=== PATIENT | female | born 1940 | race Caucasian/White ===

== ENCOUNTER 2017-07-07 10:39 | Inpatient (IN) | payer MEDICARE ==
--- NOTE | 2017-06-21 03:40 | HP ---
HISTORY AND PHYSICAL: DATE OF ADMISSION/SURGERY: 07/07/17 DATE OF OFFICE VISIT: 06/16/17 SURGEON: Jes Lees MD * (DICTATED BY RAMYA MAR) PROCEDURE: Revision of the left total knee arthroscopy. CHIEF COMPLAINT: Left knee pain. HISTORY OF PRESENT ILLNESS: Ms. Terry is a 77-year-old female, who had a left total knee replacement on 08/27/09. She did extremely well after the surgery up until approximately 6 weeks ago when she started having increased pain with walking and weightbearing. X-rays showed the tibial component is loose and has changed position. She has elected to proceed with surgery to correct this. She is scheduled for a left total knee revision with Dr. Lees on 07/07/17. PAST MEDICAL HISTORY: Hypertension, ischemic stroke, pulmonary embolism, heart murmur. PAST SURGICAL HISTORY: Tonsillectomy; appendectomy; bilateral carpal tunnel release; ganglion cyst excision; x2; breast biopsy; hysterectomy; left heel spur removal; ORIF, right lower extremity; left total knee arthroplasty. CURRENT MEDICATIONS: 1. Enalapril. 2. Magnesium. 3. Ibuprofen. ALLERGIES: To ADHESIVE TAPE and SCALLOP. FAMILY HISTORY: Stroke and stomach cancer. SOCIAL HISTORY: A 77-year-old female, who lives with her . She does not smoke or use drugs or alcohol. REVIEW OF SYSTEMS: A complete 14-point review of systems was reviewed with the patient, and it was positive for history of stroke, pulmonary embolus and MRSA infection following the ORIF of the right lower extremity. PHYSICAL EXAMINATION GENERAL: She is a well developed, well nourished, in no acute distress. VITAL SIGNS: She stands 5 feet 2 inches tall, weighs 188 pounds. Her blood pressure is 136/84, her heart rate is 72. HEENT: Normocephalic, atraumatic. NECK: Supple. PULMONARY: The lungs are clear to auscultation bilaterally. CARDIO: Regular rate and rhythm. Strong S1 and S2. ABDOMEN: Soft, nontender, and nondistended. MUSCULOSKELETAL: Left lower extremity, the skin is intact. There are no open wounds or abrasions. She can flex to 90 degrees. She is able to do a straight leg raise and has full extension. She has some tenderness to palpation over the proximal tibia. 2+ dorsalis pedis pulses. Intact sensation. Her lower extremity muscle group strengths are intact at 5/5. NEUROLOGIC: She is alert and oriented x3. Cranial nerves II through XII are intact. ASSESSMENT AND PLAN: Ms. Terry is a 77-year-old female, status post left total knee replacement, who had increasing left knee pain approximately 6 weeks ago and x- rays show change in the position of the tibial component with loosening. She would like to proceed with surgery. She is scheduled for a revision of the left total knee on 07/07/[address] Lees discussed the risks and benefits of the surgery at today's visit and all of her questions were answered. Coumadin, Colace, and Percocet were sent to her pharmacy for postoperative pain control and DVT prophylaxis. She will see Dr. Lees back 2 weeks after the surgery. RAMYA MAR [id number]/[facility] #: [id number] [facility], [place]Michel[place]
[~2017-07-07 10:39] MED LIST: Buffered Lidocaine 0.9% SYRIN* 5 ML/SYR SYRINGE INTRADERM ONE; ceFAZolin 2 GM PREMIX (*) 50 ML IVPB ONE
[2017-07-07] MEDS ORDERED: Bupivacaine 0.25% SDV* 30 ML ONE ×2 (11:40→14:36)
[2017-07-07] MEDS ORDERED: Bupivacaine 0.5% SDV PF* 30 ML VIAL ONE ×2 (11:40→14:36)
[2017-07-07] MEDS ORDERED: Rocuronium* 10 MG/ML VIAL ONE (11:57)
[2017-07-07] MEDS ORDERED: fentaNYL* 50 MCG/ML 2 ML VIAL (100 MCG VIAL) ONE ×4 (12:21→18:15)
[2017-07-07] MEDS ORDERED: Lidocaine 2% PF * 5 ML VIAL ONE (13:07)
[2017-07-07] MEDS ORDERED: Propofol* 10 MG/ML 20 ML BTL IV PUSH ONE ×2 (13:07→14:35)
[2017-07-07] MEDS ORDERED: ceFAZolin 2 GM PREMIX (*) 50 ML IVPB ONE (15:36)
[2017-07-07 15:41] LABS: Hematocrit 33 % (35-47); Hemoglobin 11.2 g/dl (12.0-16.0)
[2017-07-07 16:35] LABS: Hematocrit 31 % (35-47); Hemoglobin 10.4 g/dl (12.0-16.0)
[2017-07-07] MEDS ORDERED: diPHENhydraMINE IV* 50 MG/ML 1 ml VIAL (BENADRYL) IV PRN (18:09)
--- NOTE | 2017-07-07 18:13 | RAD ---
INDICATION: Left knee revision COMPARISONS: June 16, 2017 TECHNIQUE: Fluoroscopy was provided for a surgical procedure. Total fluoroscopy time is: 26.8 seconds FINDINGS: Spot images demonstrate a left knee arthroplasty. IMPRESSION: FLUOROSCOPY WAS PROVIDED FOR A SURGICAL PROCEDURE CPT II Codes: 6045F
[2017-07-07] MEDS ORDERED: Ondansetron INJ* 2 MG/ML VIAL ONE (18:15)
[2017-07-07] MEDS ORDERED: Ondansetron INJ* 2 MG/ML VIAL IV PRN (18:32)
[2017-07-07 18:39] LABS: Hematocrit 27 % (35-47); Hemoglobin 8.7 g/dl (12.0-16.0)
[2017-07-07] MEDS: fentaNYL* 50 MCG/ML 2 ML VIAL (100 MCG VIAL) IV PRN ×2 (18:43→20:44)
[2017-07-07] MEDS ORDERED: DiMENhydriNATE IV* 50 MG/ML VIAL ONE (19:30)
--- NOTE | 2017-07-07 19:48 | RAD ---
HISTORY: Status post left knee arthroplasty COMPARISONS: June 16, 2017 VIEWS: 2, frontal and crosstable lateral views of the left knee FINDINGS: BONE DENSITY: There is diffuse osteopenia. BONES: The patient is status post left knee arthroplasty. There is no hardware failure or osteolysis. JOINTS: The patient is status post left knee arthroplasty ALIGNMENT: There is no dislocation. SOFT TISSUES: Unremarkable. OTHER FINDINGS: None. IMPRESSION: STATUS POST LEFT KNEE ARTHROPLASTY
--- NOTE | 2017-07-07 19:49 | RAD ---
HISTORY: Status post left knee arthroplasty COMPARISONS: None relevant VIEWS: 2, frontal and crosstable lateral views of the proximal left femur. FINDINGS: BONE DENSITY: There is diffuse osteopenia. BONES: There is no displaced fracture. JOINTS: There is moderate osteoarthritis of the hip. ALIGNMENT: There is no dislocation. SOFT TISSUES: Unremarkable. OTHER FINDINGS: None. IMPRESSION: OSTEOARTHRITIS. NO ACUTE OSSEOUS INJURY. IF SYMPTOMS PERSIST, RECOMMEND REPEAT IMAGING.
--- NOTE | 2017-07-07 19:50 | RAD ---
HISTORY: Status post left knee arthroplasty COMPARISONS: Left knee dated July 07, 2017 VIEWS: 2, frontal view of the left foreleg with lateral views of the distal left foreleg FINDINGS: BONE DENSITY: There is diffuse osteopenia. BONES: The patient is status post left knee arthroplasty. There is no hardware failure or osteolysis. JOINTS: The patient is status post left knee arthroplasty. There is osteoarthritis of the ankle. ALIGNMENT: There is no dislocation. SOFT TISSUES: Unremarkable. OTHER FINDINGS: None. IMPRESSION: STATUS POST LEFT KNEE ARTHROPLASTY
[2017-07-07] MEDS ORDERED: Enalapril TAB* 5 MG PO SCH (21:00)
[2017-07-07] MEDS: Docusate CAP* 100 MG PO SCH (22:37)
[2017-07-07] MEDS: Morphine INJ* 2 MG/ML 1 ML SYRINGE IV PRN (22:41)
[2017-07-07] MEDS: Nystatin TOP POWDER* 15 GM BTL TOPICAL SCH (22:47)
[2017-07-07] MEDS ORDERED: Warfarin TAB(*) 6 MG PO ONE (23:30)
[2017-07-07 23:46] LABS: Hematocrit 30 % (35-47); Hemoglobin 10.3 g/dl (12.0-16.0)
[2017-07-07] MEDS: ceFAZolin 1 GM VIAL(*) 1 GM in NS 0.9% 50 ML* 50 ML IVPB SCH (23:54)
[2017-07-08] MEDS: Ondansetron INJ* 2 MG/ML VIAL IV PRN ×2 (00:05→06:15)
--- NOTE | 2017-07-08 02:59 | CONS ---
CONSULTATION REPORT: DATE OF CONSULTATION: 07/07/17 CONSULTATION REQUESTED BY: Jes Lees MD ATTENDING PHYSICIAN WHILE IN THE HOSPITAL: Saul Monterroso MD (dictated by RAMYA Woodson) REASON FOR CONSULTATION: Postoperative comanagement of comorbid medical conditions. HISTORY OF PRESENT ILLNESS: Ms. Terry is a 77-year-old female who is currently postoperative after revision of a total left knee arthroplasty. The patient has a past medical history for hypertension, ischemic stroke, pulmonary embolism, and osteoarthritis. The patient states she is in significant pain at the surgical site and in other areas of her body including her back and shoulders.The patient denies chest pain, shortness of breath, change in vision, and headaches. The patient states "the room is spinning" and she feels like she might vomit for the entirety of the consultation. Estimated blood loss for the surgery was 800 mL. The patient has been hypotensive since the surgery. The patient was given labetalol intraoperatively for hypertension after the anesthesiologist gave fluids to correct hypotension. The patient denies any recent illnesses or trauma. The patient denies palpitations. The patient states that her left leg was swelling before the surgery with prolonged standing , but that is subsided with recumbency. PAST MEDICAL HISTORY: Hypertension, Ischemic stroke, Pulmonary embolism, and Osteoarthritis PAST SURGICAL HISTORY: 1. Tonsillectomy. 2. Appendectomy. 3. Bilateral carpal tunnel release. 4. Ganglion cyst excision. 5. x2. 6. Breast biopsy. 7. Hysterectomy. 8. Left heel spur removal. 9. ORIF of the lower right extremity. 10. Left total knee arthroplasty, which is currently being revised. CURRENT HOME MEDICATIONS: 1. Enalapril 5 mg p.o. b.i.d., last dose was in the evening on 07/06/17. 2. Magnesium 250 mg p.o. daily. 3. Ibuprofen 600 mg b.i.d. ALLERGIES: The patient is allergic to ADHESIVE TAPE and SCALLOPS. FAMILY HISTORY: Stroke in both parents and stomach cancer unknown relative. SOCIAL HISTORY: The patient lives with her . The patient denies smoking , alcohol, or illicit drugs. REVIEW OF SYSTEMS: A 14-point review of systems was completed and was negative except as noted above. PHYSICAL EXAMINATION: General: The patient is a 77-year-old female who appears to be stated age, lying in the hospital bed with her eyes closed in moderate distress. The patient is pale and states she needs to throw up. Vital Signs: Blood pressure 64/42, heart rate 89, respiratory rate 22, oxygen saturation 97% on 4 L of oxygen, temperature 98.2. HEENT: Pupils constricted, equal, round, reactive to light. Sclerae anicteric. Conjunctivae pale. Oral mucosa moist. Pharynx nonerythematous. Neck: Supple. No lymphadenopathy. Tenderness with palpation of the anterior lymph node chain. Cardiovascular: Regular rate and rhythm. No clicks, murmurs, gallops, rubs. Radial pulses 2+ bilaterally. Posterior tibialis and dorsalis pedis pulses 1+ bilaterally. Pulmonary: Rhonchorous breath sounds that cleared with coughing. No rales or wheezes. Good air exchange bilaterally. Abdomen: Obese, soft, nontender.Hypoactive bowel sounds present in all 4 quadrants. No hepatosplenomegaly. Skin: Cool, pale, intact except surgical wound, which is covered by a large dressing. Neurologic: The patient is lethargic, but is oriented x3. Cranial nerves II through XII are grossly intact. The patient has diminished light touch sensation on the right upper extremity compared to the left, which she states is consistent with her poststroke condition. [employer] strength preserved. Distal strength 5/5 bilaterally in the lower extremities. DIAGNOSTIC AND LABORATORY STUDIES: Preoperative EKG reviewed, no pertinent abnormalities. Preoperative lab work from 06/24/17 reviewed. Hemoglobin was 14.0 on , was 11.1 at 1531 on 07/07/17, then went down to 10.4 at 1628 and 8.7 at 1830. Preoperatively, sodium 139, potassium 42, chloride 104, CO2 29, BUN 18, creatinine 0.63, glucose 86. IMPRESSION: The patient is a 77-year-old female, status post left total knee revision with acute blood loss. 1. Postoperative state, acute blood loss: Will order 1 unit packed red blood cells. Will check H and H 30 minutes after transfusion. Will admit to ICU for close monitoring of blood pressure and possible blood product reaction, repeat labs in the morning per primary team. Pain control per primary team. Control of postoperative nausea and dizziness per primary team. Bowel Regimen per primary team. 3. History of hypertension: Hold enalapril until blood pressure will allow resumption. 4. History of pulmonary embolism: The patient on warfarin and Lovenox per primary team. The patient was not on long-term anticoagulation because previous pulmonary embolism was provoked. 5. FEN: Advanced diet per primary team. 6. DVT prophylaxis, see above. 7. Code status: Full code. 8. Disposition: Admit to ICU. TIME SPENT: Approximately 60 minutes was spent on this consultation, 20 of which was spent obtaining history and physical from the patient. Dr. Jaiden Monterroso, my attending physician has been consulted and agrees with this plan. [id number]/[facility] [place] #: [id number] MTDMichelle
[2017-07-08] MEDS: Morphine INJ* 2 MG/ML 1 ML SYRINGE IV PRN ×3 (03:40→11:37)
[2017-07-08 06:11] LABS: Hematocrit 28 % (35-47); Hemoglobin 9.6 g/dl (12.0-16.0)
[2017-07-08 06:26] LABS: BUN/Creatinine Ratio 26.4 (8-20); Calcium 8.5 mg/dL (8.6-10.3); EGFR African American 143.5 (>60); EGFR Non-African American 111.6 (>60); Potassium 4.3 mmol/L (3.5-5.0)
[2017-07-08] MEDS: ceFAZolin 1 GM VIAL(*) 1 GM in NS 0.9% 50 ML* 50 ML IVPB SCH ×2 (07:57→14:58)
[2017-07-08] MEDS ORDERED: PROCHLORPERAZINE INJ 5 MG/ML 2 ML VIAL IV PRN (08:58)
[2017-07-08] MEDS: Scopolamine 1.5 mg* PATCH TRANSDERM SCH (10:16)
--- NOTE | 2017-07-08 10:26 | OP ---
OPERATIVE REPORT: DATE OF OPERATION: 07/07/17 DATE OF : 38 SURGEON: Jes Lees MD. MARKETING PROJECT MANAGER: RAMYA Dobbs. Ms. Ortiz did help throughout the procedure with preparation of leg, wound retraction, manipulation of the knee, and wound closure. ANESTHESIOLOGIST: Dr. Carney. ANESTHESIA: General with adductor nerve block. 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 OPERATIVE PROCEDURE: Revision, left total knee arthroplasty, femur and tibia. COMPLICATIONS: None. ESTIMATED BLOOD LOSS: 650 cc. TOURNIQUET TIME: 83 minutes. SPECIMEN: Explanted implant/hardware sent to pathology, multiple culture swabs sent to microbiology for cultures and sensitivities. IMPLANTS USED: For the femur, a Sigma PFC, TC3 cemented size 2.5 left with the femoral adapter and bolt, one lateral distal augment of 8 mm and noncemented stem 75 x 60 mm. For the tibia, a 45 mm MBT revision metaphyseal sleeve. For the tibial tray, a Sigma rotating platform tray size 3 with a 13 x 30 modular cemented stem. For the insert, a rotating platform tibial insert for TC3 size 2.5, 10 mm. Packages of Simplex cement with tobramycin were used. BRIEF HISTORY/INDICATION: Ms. Terry is a 77-year-old female who had a fall in late March injuring her left knee. She had 2007 left total knee arthroplasty with Dr. Anderson and had done well initially. In late March, approximately 2-1/2 months ago caused her to have significant increasingly severe pain in the left knee. She saw Dr. Anderson 2 weeks ago in clinic and radiographs showed extensive osteolysis around the femoral component as well as subsidence, malaligned, and some periprosthetic tibial fracture. I offered the patient both operative and nonoperative treatment options. Dr. Anderson did ask me to assume care of the patient and we decided on revision left total knee arthroplasty. She was medically optimized for surgery. Informed consent was obtained from the patient. She understood the risks of the surgery included, but were not limited to, bleeding, infection, damage to nearby structures, continued pain, need for further surgery, intraoperative fracture, nerve palsy, hardware failure or loosening, periprosthetic fracture, continued pain, knee instability , stroke, heart attack, blood clot, and . She wished to proceed. INTRAOPERATIVE FINDINGS: Intraoperatively, the patient was noted to have extremely poor bone quality and osteopenia. The femur had anterior bone loss as well as significant lateral femoral condylar bone loss. The tibia had union of the fracture with abnormal medial tibial plateau and extensive medial tibial plateau bone loss. Patellar implant appeared to be intact without any loosening. DESCRIPTION OF PROCEDURE: Ms. Terry was identified in the preanesthesia unit. Her left lower extremity was marked as the correct operative site. Informed consent was signed and placed in the chart. The patient was taken to the operating room and placed under general anesthesia with an adductor nerve block. A tourniquet was placed on the left thigh. Forde catheter was placed. Left lower extremity was prepped and draped in the usual sterile fashion. Preop time-out was made to correctly identify the patient's side and site. Appropriate perioperative antibiotics were given within one hour of incision. They were also given a second time at the 4-hour mirian of surgery. Tourniquet was inflated until tourniquet time for this procedure was 83 minutes. The tourniquet was inflated and the patient's prior incision was opened using a 10 blade. Dissection down to the extensor mechanism was performed. A standard medial parapatellar arthrotomy was performed. There was no obvious purulence. There was joint fluid, which was collected for culture and sensitivities, both aerobic and anaerobic. The patient's implants were visualized. Polyethylene insert was removed carefully with an osteotome. The patient's tibial plateau had obvious deformity due to the periprosthetic fracture. The tibia tray was at a 30-degree ankle impacted medially into the tibial plateau. A small oscillating saw was used to break the interface along the femoral component and cement. It was noted that there was extensive bone loss anteriorly around the femur. A tamp was used to carefully remove the femoral component. It was noted that there was significant anterior bone loss as well as lateral femoral condylar bone loss. Attention was next turned to removal of the tibial implant. This was made difficult due to its impaction subsidence and angulation. Using rigid and flexible osteotomes, the tibial implant elevated out of its subsided location. It was noted that there was extreme deformation of the medial tibial plateau with loss of bone, although union of the fracture was noted. At this time, a guidewire was used to locate the tibial canal. Cement along the canal was carefully removed using a back scraper and pituitary. Tibial canal was sequentially reamed up to a size 12. Next, the opening reamer was placed. Decision was made to place metaphyseal sleeve for better fixation. The metaphyseal region was sequentially broached up to a size 45 metaphyseal sleeve broach, which had good fit. Off the top of the broach, a clean-up cut was made laterally. There was deformed bone medially and bone loss, which was deemed to be appropriate for the metaphyseal sleeve fixation. A size 3 tibial tray was chosen and this was placed over a metaphyseal trial. The implant trials did have satisfactory position and stability. Next, attention was turned to preparation of the femur. Tourniquet was turned down at 60 minutes and the case was continued without tourniquet at this time. The femoral canal was sequentially broached up to a size 16. Off the broach, the clean- up cut was made medially at the 0 slot and laterally at the 8 slot. It was decided that a lateral 8 mm distal augment would be used. The femur was sized to a size 2.5. A 2.5 cutting jig was pinned on the distal femur and the appropriate clean-up cuts were made. Next, the TC3 box cut guide was placed and the appropriate box cut was made with a reciprocating saw. A femoral trial was put together in place. The femoral trial did have good fit. The knee was brought out into extension and it was noted that the alignment of both the femur and tibia were satisfactory. However, there was extreme varus deformity due to medial tightness. Along the posteromedial and medial tibial plateau, electrocautery was used to release soft tissue and the superficial fibers of the MCL. The knee was brought back into extension and had much better mediolateral balancing. A 10-mm insert trial was placed and the knee was taken through a range of motion. The knee was stable in all positions with full extension and 130 degrees of flexion. The patella was everted and checked for any looseness. The patella was not noted to be loose. Decision was made to leave the prior patella. At this time, the tourniquet was reinflated. All trials were carefully removed. The bone was copiously irrigated with sterile saline and dried. Final implants were assembled and cemented into place using Simplex bone cement with tobramycin. No cement was placed around the stem or the metaphyseal sleeve. Cement was allowed to fully cure and the knee was copiously irrigated with sterile saline. A 10-mm insert trial had been placed while the knee was brought out into full extension and the cement was allowed to fully cure. Insert trial was removed. Any excess cement was carefully removed from around the capsule. Electrocautery was used to obtain meticulous hemostasis. Final insert chosen was a TC3 rotating platform 10 mm insert. This was placed without difficulty. Final knee range of motion with full extension to 130 degrees of flexion. The knee was once again copiously irrigated with sterile saline. The extensor mechanism was closed over a medium Hemovac drain using interrupted #1 Vicryl. The rest of the incision was closed in a layered fashion using 0 and 2-0 Vicryls. Skin was closed using running 3-0 nylon suture. Sterile Xeroform, 4x4 's, and Webril were used to cover the incision. Jak wrap and cold pack were placed over this. The patient's anesthesia was reversed without difficulty. She was taken to the PACU in stable condition. Intended weightbearing will be protected weightbearing over the next 4 to 6 weeks. She will have Coumadin with a Lovenox bridge for DVT prophylaxis. [id number]/[facility] #: [id number] RAULITO
--- NOTE | 2017-07-08 10:31 | PN ---
Progress Note - Progress Note Date of Service: 07/08/17 SOAP: Subjective: PT OOB to chair with complaints of significant nausea, moderate left knee pain, and complaints of right medial knee pain. Objective: Vital Signs Temp Pulse Resp BP Pulse Ox 97.9 F 101 19 104/64 96 07/08/17 08:47 07/08/17 09:00 07/08/17 09:09 07/08/17 09:00 07/08/17 09:00 Laboratory Last Values Hgb 9.6 g/dl (12.0-16.0) L 07/08/17 05:45 Hct 28 % (35-47) L 07/08/17 05:45 INR (Anticoag Therapy) 1.08 (0.89-1.11) 07/08/17 05:45 Sodium 138 mmol/L (133-145) 07/08/17 05:45 Potassium 4.3 mmol/L (3.5-5.0) 07/08/17 05:45 Chloride 107 mmol/L (101-111) 07/08/17 05:45 Carbon Dioxide 28 mmol/L (22-32) 07/08/17 05:45 Anion Gap 3 mmol/L (2-11) 07/08/17 05:45 BUN 14 mg/dL (6-24) 07/08/17 05:45 Creatinine 0.53 mg/dL (0.51-0.95) 07/08/17 05:45 Est GFR ( Amer) 143.5 (>60) 07/08/17 05:45 Est GFR (Non-Af Amer) 111.6 (>60) 07/08/17 05:45 BUN/Creatinine Ratio 26.4 (8-20) H 07/08/17 05:45 Glucose 150 mg/dL (70-100) H 07/08/17 05:45 Calcium 8.5 mg/dL (8.6-10.3) L 07/08/17 05:45 Blood Type O Positive 07/07/17 18:30 Antibody Screen Negative 07/07/17 18:30 Crossmatch See Detail 07/07/17 18:30 incision: c/d/i PE: NVI Assessment: POD#1 revision of left TKA Plan: 1) Continue Ancef for 24 hours post-op 2) Lovenox/Coumadin/SCD's for DVT prophylaxis 3) Hospitalist co-managing 4) Dr. Jane consulted for persistent tachycardia 5) PT/OT- WBAT
--- NOTE | 2017-07-08 11:33 | RAD ---
INDICATION: Right knee pain COMPARISON: None TECHNIQUE: Partially flexed AP and oblique were obtained. Positioning was very limited due to the patient's clinical condition. FINDINGS: No acute bony findings are noted. There is advanced tricompartmental osteoarthritic change about the right knee. No significant effusion is appreciated. IMPRESSION: ADVANCED OSTEOARTHRITIS
[2017-07-08] MEDS: oxyCODONE TAB* 5 MG TAB PO PRN ×2 (11:36→13:02)
[2017-07-08] MEDS: Nystatin TOP POWDER* 15 GM BTL TOPICAL SCH ×3 (12:03→19:48)
[2017-07-08] MEDS: Vitamin THERAPEUTIC TAB PO SCH (13:02)
[2017-07-08] MEDS: Docusate CAP* 100 MG PO SCH ×2 (13:02→19:49)
[2017-07-08 13:37] LABS: Mean Corpuscular HGB Conc 34 g/dl (31-36); Mean Corpuscular Hemoglobin 30 pg (27-31); Mean Corpuscular Volume 89 fL (80-97); Mean Platelet Volume 8 um3 (7.4-10.4); Red Blood Count 3.21 10^6/ul (4.0-5.4); Red Cell Distribution Width 14 % (10.5-15)
--- NOTE | 2017-07-08 16:26 | CONS ---
CRITICAL CARE CONSULT: DATE OF CONSULTATION: 07/08/17 REASON FOR CONSULTATION: Postop tachycardia. HISTORY OF PRESENT ILLNESS: This patient is a 77-year-old female with a history of hypertension, ischemic stroke, pulmonary embolism, and osteoarthritis , who underwent a total left knee arthroplasty yesterday and postoperatively required 1 unit of packed cells for intraoperative blood loss. On the day following the surgery, the patient is complaining of nausea and has had a persistent tachycardia in the 100 to 110 range. She denies chest pain and shortness of breath. The patient does have a prior history of pulmonary embolism, but was not on long-term anticoagulation. Active medications include DVT prophylaxis with enoxaparin (30 mg subcutaneous q. 24 hours) and pain management with oral Percocet tablets. Scopolamine has been given for control of lightheadedness and dizziness. PHYSICAL EXAMINATION: The patient is sitting up in a chair, and complaining of nausea and dizziness. However, she appeared comfortable, and was breathing comfortably. Vital Signs: Temp 97 temporal, heart rate 106, respiratory rate 21 , O2 sat 97% with nasal prongs at 2 L per minute, BP 110/70. HEENT: Oropharynx is clear. Neck was without jugular venous distention or masses. Lungs: Scattered coarse rhonchi and diminished breath sounds at both bases but no wheezing. Cardiac Exam: There are no murmurs, rubs, or gallops. Abdomen was mildly distended but bowel sounds were present and there was no guarding or tenderness. Extremities were warm, not cyanotic and there was trace to 1+ edema in the right lower extremity. LABORATORY STUDIES/DIAGNOSTIC STUDIES: Labs today show a hemoglobin of 9.6, white count of 10.0, and platelets of 164,000. No other labs available. Last chest x-ray on 06/24/17 revealed a normal sized heart with no pulmonary infiltrates. EKG from yesterday revealed a borderline sinus tachycardia with poor R wave progression across the precordium. OVERALL IMPRESSION: Postoperative tachycardia could indicate ongoing systemic inflammation, but normal white count is against this. Another possibility is that the patient has a cardiomyopathy, which at this point seems unlikely. A pulmonary embolism can also cause unexplained tachycardia, but the patient has not had problems with gas exchange, so this seems less likely. RECOMMENDATIONS: At this point, would just monitor the heart rate and if it does not normalize, would initiate a workup for cardiomyopathy. TIME SPENT: 60 minutes. [id number]/[facility] #: [id number] RAULITO
[2017-07-08] MEDS: oxyCODONE/Acetamin 5/325 MG* TAB PO PRN ×2 (16:37→21:08)
[2017-07-08] MEDS ORDERED: Warfarin TAB(*) 4 MG PO ONE (17:00)
[2017-07-08] MEDS: Enoxaparin(*) 30 MG/0.3 ML SYR SUBCUT SCH (18:09)
[2017-07-09] MEDS: oxyCODONE/Acetamin 5/325 MG* TAB PO PRN ×4 (00:24→20:27)
[2017-07-09] MEDS: oxyCODONE TAB* 5 MG TAB PO PRN ×3 (01:47→17:39)
[2017-07-09] MEDS: Ondansetron INJ* 2 MG/ML VIAL IV PRN ×2 (01:47→12:49)
[2017-07-09 06:49] LABS: Hematocrit 24 % (35-47); Hemoglobin 8.1 g/dl (12.0-16.0)
[2017-07-09] MEDS: Vitamin THERAPEUTIC TAB PO SCH (08:20)
[2017-07-09] MEDS: Nystatin TOP POWDER* 15 GM BTL TOPICAL SCH ×3 (08:29→20:30)
[2017-07-09] MEDS: Docusate CAP* 100 MG PO SCH ×2 (08:29→20:27)
[2017-07-09] MEDS ORDERED: [UNRECOGNIZED DRUG - OTHER] PO SCH (09:00)
[2017-07-09 09:41] LABS: BUN/Creatinine Ratio 24.5 (8-20); Calcium 8.7 mg/dL (8.6-10.3); EGFR African American 157.1 (>60); EGFR Non-African American 122.1 (>60); Magnesium 1.8 mg/dL (1.9-2.7); Potassium 3.7 mmol/L (3.5-5.0)
[2017-07-09] MEDS ORDERED: Magnesium Sulfate 1 GM IV* 1 GM/100 ML BAG IV ONE (10:33)
--- NOTE | 2017-07-09 10:40 | PN ---
Subjective Date of Service: 07/09/17 Interval History: Pt feels well. Denies CP/SOB, very limited mobility post op. Feels nauseated after "pain meds" Objective Active Medications: Acetaminophen (Tylenol Tab*) 650 mg PO Q4H PRN PRN Reason: PAIN OR TEMPERATURE Diphenhydramine HCl (Benadryl Iv*) 25 mg IV Q6H PRN PRN Reason: itching Docusate Sodium (Colace Cap*) 100 mg PO BID [facility] Last Admin: 07/09/17 08:29 Dose: 100 mg Enoxaparin Sodium (Lovenox(*)) 30 mg SUBCUT Q24H [facility] Last Admin: 07/08/17 18:09 Dose: 30 mg Magnesium Sulfate/Dextrose (Magnesium Sulfate 1 Gm Iv*) 1 gm in 100 mls @ 200 mls/hr IV ONCE ONE Stop: 07/09/17 11:02 Lactulose (Lactulose*) 30 ml PO Q6H PRN PRN Reason: constipation Magnesium Hydroxide (Milk Of Magnesia Liq*) 30 ml PO Q6H PRN PRN Reason: constipation Morphine Sulfate (Morphine Inj (Syringe)*) 2 mg IV Q30M PRN PRN Reason: PAIN - UNCONTROLLED Last Admin: 07/08/17 11:37 Dose: 2 mg Multivitamins (Theragran Tab*) 1 tab PO DAILY [facility] Last Admin: 07/09/17 08:20 Dose: 1 tab Nf Med* Magnesium (Malate 250mg) 1 admin PO DAILY [facility] Last Admin: 07/09/17 10:03 Dose: Not Given Nystatin (Nystatin Top Powder*) 1 applic TOPICAL TID [facility] Last Admin: 07/09/17 08:29 Dose: 1 applic Ondansetron HCl (Zofran Inj*) 4 mg IV Q6H PRN PRN Reason: nausea Last Admin: 07/09/17 01:47 Dose: 4 mg Oxycodone HCl (Roxycodone Tab*) 10 mg PO Q4H PRN PRN Reason: PAIN - SEVERE Last Admin: 07/09/17 08:20 Dose: 10 mg Oxycodone/Acetaminophen (Percocet 5/325 Tab*) 1 tab PO Q3H PRN PRN Reason: PAIN - MODERATE Oxycodone/Acetaminophen (Percocet 5/325 Tab*) 2 tab PO Q3H PRN PRN Reason: PAIN - MODERATE TO SEVERE Last Admin: 07/09/17 05:55 Dose: 2 tab Pharmacy Profile Note (Scopolomine Patch Remove*) 1 note PATCH OFF .AFTER 72 HOURS [facility] Pharmacy Profile Note (Coumadin Daily Reminder*) 1 note FOLLOW UP 1700 [facility] Last Admin: 07/08/17 16:38 Dose: 1 note Prochlorperazine Edisylate (Compazine Inj*) 5 mg IV Q6H PRN PRN Reason: NAUSEA/VOMITING Last Admin: 07/08/17 11:37 Dose: 5 mg Scopolamine (Transderm-Scop 1.5 Mg Patch*) 1 patch TRANSDERM Q72H [facility] Last Admin: 07/08/17 10:16 Dose: 1 patch Vital Signs 07/08/17 07/08/17 07/08/17 11:00 11:21 11:37 Temperature Pulse Rate 106 Respiratory 17 21 Rate Blood Pressure 109/71 (mmHg) O2 Sat by Pulse 97 97 Oximetry 07/08/17 07/08/17 07/08/17 11:51 12:00 13:00 Temperature 97.0 F Pulse Rate 91 101 Respiratory 11 14 Rate Blood Pressure 129/71 141/79 (mmHg) O2 Sat by Pulse 88 99 Oximetry 07/08/17 07/08/17 07/08/17 13:11 14:00 15:00 Temperature Pulse Rate 98 117 Respiratory 15 11 20 Rate Blood Pressure 110/78 138/68 (mmHg) O2 Sat by Pulse 99 96 Oximetry 07/08/17 07/08/17 07/08/17 15:29 15:54 15:55 Temperature 98.0 F 97.8 F 97.8 F Pulse Rate 107 107 Respiratory 16 16 Rate Blood Pressure 130/61 130/61 (mmHg) O2 Sat by Pulse 96 96 Oximetry 07/08/17 07/08/17 07/08/17 16:20 16:22 16:37 Temperature Pulse Rate Respiratory 18 16 Rate Blood Pressure (mmHg) O2 Sat by Pulse 96 Oximetry 07/08/17 07/08/17 07/08/17 17:55 19:49 20:14 Temperature 97.7 F 98.7 F Pulse Rate 112 117 Respiratory 19 15 18 Rate Blood Pressure 132/75 118/53 (mmHg) O2 Sat by Pulse 97 98 Oximetry 07/08/17 07/08/17 07/08/17 21:08 23:08 23:50 Temperature 98.2 F Pulse Rate 112 Respiratory 15 16 16 Rate Blood Pressure 127/68 (mmHg) O2 Sat by Pulse 100 Oximetry 07/09/17 07/09/17 07/09/17 00:24 01:47 02:16 Temperature Pulse Rate Respiratory 16 15 16 Rate Blood Pressure (mmHg) O2 Sat by Pulse Oximetry 07/09/17 07/09/17 07/09/17 03:18 03:30 05:55 Temperature 98.1 F Pulse Rate 118 Respiratory 14 16 16 Rate Blood Pressure 120/57 (mmHg) O2 Sat by Pulse 93 Oximetry 07/09/17 07/09/17 07:55 08:20 Temperature Pulse Rate Respiratory 18 18 Rate Blood Pressure (mmHg) O2 Sat by Pulse Oximetry Oxygen Devices in Use Now: None Appearance: 77 yo f in nAd, AAOx3 Eyes: No Scleral Icterus, PERRLA Ears/Nose/Mouth/Throat: NL Teeth, Lips, Gums, Mucous Membranes Moist Neck: NL Appearance and Movements; NL JVP, Trachea Midline Respiratory: Symmetrical Chest Expansion and Respiratory Effort, Clear to Auscultation Cardiovascular: NL Sounds; No Murmurs; No JVD, RRR, - - tachy Lymphatic: No Cervical Adenopathy Extremities: No Clubbing, Cyanosis, - - trace b/l pedal edema. L knee in cryo unit Skin: No Nodules or Sclerosis, - - post op dressings inL knee not uncovered Neurological: Alert and Oriented x 3, NL Muscle Strength and Tone Result Diagrams: 07/09/17 06:41 07/09/17 06:41 Microbiology and Other Data: Microbiology 07/07/17 13:22 Anaerobic Culture - Preliminary Wound No Growth Day 1 Gram Stain - Final Wound Culture - Preliminary No Growth Day 1 07/07/17 22:00 Nasal Screen MRSA (PCR)(ALVARO) - Final Nasal Mrsa Negative Assess/Plan/Problems-Billing Assessment: 77 yo f with h/o HTN and post op PE 8 yrs ago s/p L knee revision on 07/07/17 - Patient Problems (1) S/P left knee surgery Comment: doing reasonably well. EBL was 800 ml (2) Postoperative anemia due to acute blood loss Comment: s/p 3 U PRBC transfusion, planned for more transfusion today as per orthopedic surgery (3) Tachycardia Comment: May be related to pain/nausea/blood loss Pt denies CP/SOB, 02 sat WNL on RA-doubt PE Will order Echo to eval EF (4) HTN (hypertension) Comment: controlled, holding enalapril (5) DVT prophylaxis Comment: as per ortho: Lovenox and Coumadin Status and Disposition: Inpatient medicine consult, will follow daily
--- NOTE | 2017-07-09 16:22 | ECHO ---
Patient: LATOSHA RENDON [facility] Rec#: [id number] : 1940 Date: 07/09/2017 Age: 77y Height: 157.48 cm / 62.0 in Weight: 83.01 kg / 183.0 lbs Sex: F BSA: 1.84 Room#: [facility] Admit Date#: 07/07/2017 Type: Inpatient Referring: Bre Luong MD Reading: Mik Jane DO [employer]: Salima Graham RDCS CC: Crispin Olivares MD Transthoracic Echocardiogram Indication: Post op tachycardia, Edema BP: 127/67 HR: 128 Rhythm: Tachycardia Findings History: S/P left knee arthroscopy, HTN, HLD, previous PE, CVA, Lyme disease 2012. Technical Comments: The study quality is fair. The study is technically limited due to patient body habitus. Completed at 1610. Left Ventricle: The left ventricular chamber size is normal. Mild concentric left ventricular hypertrophy is observed. Global left ventricular wall motion and contractility are within normal limits. The left ventricle appears hyperdynamic. The estimated ejection fraction is greater than 65%. Abnormal left ventricular diastolic filling is observed, consistent with impaired relaxation. Left Atrium: The left atrium is mild to moderately dilated. Right Ventricle: The right ventricular cavity size is normal. The right ventricular global systolic function is hyperdynamic. Right Atrium: The right atrium is mildly dilated. Aortic Valve: The aortic valve is trileaflet. There is evidence of aortic sclerosis without stenosis. There is a trace of aortic regurgitation. There is no evidence of aortic stenosis. Mitral Valve: The mitral valve leaflets are mildly thickened. There is trace to mild mitral regurgitation. There is no evidence of mitral stenosis. Tricuspid Valve: The tricuspid valve leaflets are normal. There is trace tricuspid regurgitation. There is evidence of mild pulmonary hypertension. There is no tricuspid stenosis. Pulmonic Valve: The pulmonic valve appears normal. There is trace to mild pulmonic regurgitation. There is no pulmonic stenosis. Pericardium: There is no significant pericardial effusion. Aorta: There is no dilatation of the ascending aorta. There is no dilatation of the aortic arch. The aortic root is normal in size. Pulmonary Artery: The main pulmonary artery is not well visualized. Venous: The inferior vena cava appears normal in size. There is a greater than 50% respiratory change in the inferior vena cava dimension. Conclusions The left ventricular chamber size is normal. Mild concentric left ventricular hypertrophy is observed. The left ventricle appears hyperdynamic. The estimated ejection fraction is greater than 70% The left atrium is mild to moderately dilated. The right ventricular cavity size is normal. The right ventricular global systolic function is hyperdynamic. There is evidence of mild pulmonary hypertension. There is evidence of aortic valve sclerosis without stenosis. No prior studies available for comparison at time of interpretation. Measurements Name Value Normal Range RVIDd (AP) 2D 3.5 cm (0.9 - 2.6) RVAW (2D) 0.55 cm (0.2 - 0.5) RAd ISD 4CH 5.2 cm (3.4 - 4.9) RA (A4C)W 4.3 cm (2.9 - 4.6) IVSd (2D) 1.2 cm (0.6 - 1) LVPWd (2D) 1 cm (0.6 - 1) LVIDd (2D) 3.9 cm (3.6 - 5.4) LVIDs (2D) 2.1 cm - LV FS (2D) 45 % (25 - 45) Aortic Annulus 1.7 cm (1.4 - 2.6) Ao root diameter (2D) 3.2 cm (2.1 - 3.5) Ascending Ao 3.1 cm (2.1 - 3.4) Aortic arch 2.6 cm (1.8 - 3.4) LA dimension (AP) 2D 3.9 cm (2.3 - 3.8) LAd ISD 4CH 6.2 cm (2.9 - 5.3) LA ISD 4CH W 4.9 cm (2.5 - 4.5) Name Value Normal Range LA ESV SP 4CH (A/L) 77 ml - LA ESV SP 2CH (A/L) 92 ml - LA ESV BP (A/L) 85 ml - LA ESV BP (A/L) index 46.21 ml/m2 - LA ESV SP 4CH (MOD) 73 ml - LA ESV SP 2CH (MOD) 88 ml - Name Value Normal Range MV E-wave Vmax 0.98 m/sec - MV deceleration time 196.2 msec - MV A-wave Vmax 1.39 m/sec - MV E:A ratio 0.71 ratio - LV septal e' Vmax 0.07 m/sec - LV lateral e' Vmax 0.07 m/sec - LV E:e' septal ratio 14 ratio - LV E:e' lateral ratio 14 ratio - Name Value Normal Range AV Vmax 2.62 m/sec - AV VTI 42.6 cm - AV peak gradient 27.41 mmHg - AV mean gradient 11.95 mmHg - LVOT diameter 2 cm - LVOT Vmax 1.92 m/sec - LVOT VTI 34.5 cm - LVOT peak gradient 14.75 mmHg - LVOT mean gradient 7.61 mmHg - JASPAL (continuity Vmax) 2.53 cm2 - JASPAL (continuity VTI) 2.6 cm2 - WATSON Vmax 1.08 m/sec - Name Value Normal Range MV Vmax 1.7 m/sec - MV VTI 29.97 cm - MV peak gradient 11.05 mmHg - MV mean gradient 4.3 mmHg - MV PHT 64.9 msec - MVA (PHT) 3.39 cm2 - MVA (continuity VTI) 3.61 cm2 - Name Value Normal Range TR Vmax 3 m/sec - TR peak gradient 36 mmHg - RAP 3 mmHg - RVSP 39 mmHg - IVC diameter 1.6 cm - Name Value Normal Range PV Vmax 1.39 m/sec - PV peak gradient 7.77 mmHg -
[2017-07-09] MEDS ORDERED: Warfarin TAB(*) 6 MG PO ONE (17:00)
[2017-07-09] MEDS: Enoxaparin(*) 30 MG/0.3 ML SYR SUBCUT SCH (19:21)
[2017-07-09] MEDS ORDERED: [UNRECOGNIZED DRUG - OTHER] PO SCH (19:55)
[2017-07-09] MEDS: [UNRECOGNIZED DRUG - OTHER] PO SCH (21:20)
[2017-07-10] MEDS: oxyCODONE/Acetamin 5/325 MG* TAB PO PRN ×3 (02:13→10:32)
[2017-07-10] MEDS: Ondansetron INJ* 2 MG/ML VIAL IV PRN (02:17)
[2017-07-10] MEDS: oxyCODONE TAB* 5 MG TAB PO PRN ×3 (05:04→23:23)
[2017-07-10 06:56] LABS: Hematocrit 28 % (35-47); Hemoglobin 9.8 g/dl (12.0-16.0); Mean Platelet Volume 7 um3 (7.4-10.4)
[2017-07-10 07:12] LABS: BUN/Creatinine Ratio 16.7 (8-20); Calcium 8.6 mg/dL (8.6-10.3); EGFR African American 140.4 (>60); EGFR Non-African American 109.2 (>60); Magnesium 1.9 mg/dL (1.9-2.7); Potassium 3.5 mmol/L (3.5-5.0)
--- NOTE | 2017-07-10 08:15 | PN ---
Subjective Date of Service: 07/10/17 Interval History: Pt feels tired, C/o being awaken multiple times during the night. R knee "bothers more" than the post op knee Objective Active Medications: Acetaminophen (Tylenol Tab*) 650 mg PO Q4H PRN PRN Reason: PAIN OR TEMPERATURE Diphenhydramine HCl (Benadryl Iv*) 25 mg IV Q6H PRN PRN Reason: itching Docusate Sodium (Colace Cap*) 100 mg PO BID [facility] Last Admin: 07/09/17 20:27 Dose: 100 mg Enoxaparin Sodium (Lovenox(*)) 30 mg SUBCUT Q24H [facility] Last Admin: 07/09/17 19:21 Dose: 30 mg Lactulose (Lactulose*) 30 ml PO Q6H PRN PRN Reason: constipation Magnesium Hydroxide (Milk Of Magnesia Liq*) 30 ml PO Q6H PRN PRN Reason: constipation Morphine Sulfate (Morphine Inj (Syringe)*) 2 mg IV Q30M PRN PRN Reason: PAIN - UNCONTROLLED Last Admin: 07/08/17 11:37 Dose: 2 mg Multivitamins (Theragran Tab*) 1 tab PO DAILY [facility] Last Admin: 07/09/17 08:20 Dose: 1 tab Pto:Nf Med* Magnesium Malate 125mg 2 admin PO BEDTIME [facility] Last Admin: 07/09/17 21:20 Dose: 2 admin Nystatin (Nystatin Top Powder*) 1 applic TOPICAL TID [facility] Last Admin: 07/09/17 20:30 Dose: 1 applic Ondansetron HCl (Zofran Inj*) 4 mg IV Q6H PRN PRN Reason: nausea Last Admin: 07/10/17 02:17 Dose: 4 mg Oxycodone HCl (Roxycodone Tab*) 10 mg PO Q4H PRN PRN Reason: PAIN - SEVERE Last Admin: 07/10/17 05:04 Dose: 10 mg Oxycodone/Acetaminophen (Percocet 5/325 Tab*) 1 tab PO Q3H PRN PRN Reason: PAIN - MODERATE Oxycodone/Acetaminophen (Percocet 5/325 Tab*) 2 tab PO Q3H PRN PRN Reason: PAIN - MODERATE TO SEVERE Last Admin: 07/10/17 06:24 Dose: 2 tab Pharmacy Profile Note (Scopolomine Patch Remove*) 1 note PATCH OFF .AFTER 72 HOURS [facility] Pharmacy Profile Note (Coumadin Daily Reminder*) 1 note FOLLOW UP 1700 [facility] Last Admin: 07/09/17 17:39 Dose: 1 note Prochlorperazine Edisylate (Compazine Inj*) 5 mg IV Q6H PRN PRN Reason: NAUSEA/VOMITING Last Admin: 07/08/17 11:37 Dose: 5 mg Scopolamine (Transderm-Scop 1.5 Mg Patch*) 1 patch TRANSDERM Q72H [facility] Last Admin: 07/08/17 10:16 Dose: 1 patch Vital Signs 07/09/17 07/09/17 07/09/17 08:20 10:20 12:49 Temperature Pulse Rate Respiratory 18 17 16 Rate Blood Pressure (mmHg) O2 Sat by Pulse Oximetry 07/09/17 07/09/17 07/09/17 14:49 15:35 15:43 Temperature 98.4 F 98.4 F Pulse Rate 102 102 Respiratory 18 18 16 Rate Blood Pressure 129/68 129/68 (mmHg) O2 Sat by Pulse 99 95 Oximetry 07/09/17 07/09/17 07/09/17 15:50 16:00 17:18 Temperature 99.0 F 98.4 F Pulse Rate 101 105 Respiratory 18 20 Rate Blood Pressure 116/61 126/68 (mmHg) O2 Sat by Pulse 96 94 99 Oximetry 07/09/17 07/09/17 07/09/17 17:39 19:19 19:39 Temperature 98.2 F Pulse Rate 95 Respiratory 18 17 17 Rate Blood Pressure 124/56 (mmHg) O2 Sat by Pulse 93 Oximetry 07/09/17 07/09/17 07/09/17 20:00 20:27 20:30 Temperature 97.9 F Pulse Rate 108 Respiratory 17 17 17 Rate Blood Pressure 125/53 (mmHg) O2 Sat by Pulse 95 Oximetry 07/09/17 07/09/17 07/10/17 22:27 23:39 02:13 Temperature 97.6 F Pulse Rate 109 Respiratory 16 16 16 Rate Blood Pressure 130/74 (mmHg) O2 Sat by Pulse 100 Oximetry 07/10/17 07/10/17 07/10/17 03:25 04:13 05:04 Temperature 98.5 F Pulse Rate 109 Respiratory 16 16 16 Rate Blood Pressure 128/65 (mmHg) O2 Sat by Pulse 99 Oximetry 07/10/17 07/10/17 06:24 07:24 Temperature 99.0 F Pulse Rate 106 Respiratory 17 15 Rate Blood Pressure 113/58 (mmHg) O2 Sat by Pulse 97 Oximetry Oxygen Devices in Use Now: None Appearance: 77 yo F in nAD, AAOx3 Eyes: No Scleral Icterus, PERRLA Ears/Nose/Mouth/Throat: NL Teeth, Lips, Gums, Mucous Membranes Moist Neck: NL Appearance and Movements; NL JVP, Trachea Midline Respiratory: Symmetrical Chest Expansion and Respiratory Effort, Clear to Auscultation Cardiovascular: NL Sounds; No Murmurs; No JVD, RRR, - - tachy Abdominal: NL Sounds; No Tenderness; No Distention, No Hepatosplenomegaly Lymphatic: No Cervical Adenopathy Extremities: No Clubbing, Cyanosis, - - trace pedal edema b/l Skin: No Nodules or Sclerosis, - - left knee surgical dressing not uncoveres Neurological: Alert and Oriented x 3, NL Muscle Strength and Tone Result Diagrams: 07/10/17 06:40 07/10/17 06:40 Microbiology and Other Data: Microbiology 07/07/17 13:22 Anaerobic Culture - Preliminary Wound No Growth Day 1 Gram Stain - Final Wound Culture - Preliminary No Growth Day 1 07/07/17 22:00 Nasal Screen MRSA (PCR)(ALVARO) - Final Nasal Mrsa Negative Assess/Plan/Problems-Billing Assessment: 77 yo f with h/o HTN and post op PE 8 yrs ago s/p L knee revision on 07/07/17 - Patient Problems (1) S/P left knee surgery Comment: doing reasonably well. EBL was 800 ml (2) Postoperative anemia due to acute blood loss Comment: s/p 3 U PRBC transfusion,Hb now stable (3) Tachycardia Comment: May be related to pain/blood loss. Echo shows good EF and no significant pulm HTN, but hyperdynamic LV (? hypovolemia) Check EKG Start gentle IVF Pt denies CP/SOB, 02 sat WNL on RA-doubt PE (4) HTN (hypertension) Comment: controlled, holding enalapril (5) DVT prophylaxis Comment: as per ortho: Coumadin INR 2.4 today, will stop lovenox Status and Disposition: Inpatient medicine consult, will follow daily
--- NOTE | 2017-07-10 08:36 | PN ---
Progress Note - Progress Note Date of Service: 07/10/17 SOAP: Subjective: pt resting comfortably in bed with continued nausea, pain improving Objective: Vital Signs Temp Pulse Resp BP Pulse Ox 99.0 F 106 15 113/58 97 07/10/17 07:24 07/10/17 07:24 07/10/17 07:24 07/10/17 07:24 07/10/17 07:24 Laboratory Last Values WBC 10.0 10^3/ul (3.5-10.8) 07/08/17 05:45 RBC 3.21 10^6/ul (4.0-5.4) L 07/08/17 05:45 Hgb 9.8 g/dl (12.0-16.0) L 07/10/17 06:40 Hct 28 % (35-47) L 07/10/17 06:40 MCV 89 fL (80-97) 07/08/17 05:45 MCH 30 pg (27-31) 07/08/17 05:45 MCHC 34 g/dl (31-36) 07/08/17 05:45 RDW 14 % (10.5-15) 07/08/17 05:45 Plt Count 145 10^3/ul (150-450) L 07/10/17 06:40 MPV 7 um3 (7.4-10.4) L 07/10/17 06:40 INR (Anticoag Therapy) 2.42 (0.89-1.11) H 07/10/17 06:40 Sodium 137 mmol/L (133-145) 07/10/17 06:40 Potassium 3.5 mmol/L (3.5-5.0) 07/10/17 06:40 Chloride 102 mmol/L (101-111) 07/10/17 06:40 Carbon Dioxide 33 mmol/L (22-32) H 07/10/17 06:40 Anion Gap 2 mmol/L (2-11) 07/10/17 06:40 BUN 9 mg/dL (6-24) 07/10/17 06:40 Creatinine 0.54 mg/dL (0.51-0.95) 07/10/17 06:40 Est GFR ( Amer) 140.4 (>60) 07/10/17 06:40 Est GFR (Non-Af Amer) 109.2 (>60) 07/10/17 06:40 BUN/Creatinine Ratio 16.7 (8-20) 07/10/17 06:40 Glucose 108 mg/dL (70-100) H 07/10/17 06:40 Calcium 8.6 mg/dL (8.6-10.3) 07/10/17 06:40 Magnesium 1.9 mg/dL (1.9-2.7) 07/10/17 06:40 Blood Type O Positive 07/07/17 18:30 Antibody Screen Negative 07/07/17 18:30 Crossmatch See Detail 07/07/17 18:30 incision: c/d/i PE: NVI Assessment: s/p Left TK revision Plan: 1) continue PT/OT- WBAT 2) Lovenox/ Coumadin/SCD's for DVT prophylaxis 3) hospitalist co-managing 4) will likely need inpat rehab when medically stable
[2017-07-10] MEDS: NS 0.9% 1000 ML* 1,000 ML IV SCH (08:40)
[2017-07-10] MEDS: Vitamin THERAPEUTIC TAB PO SCH (08:43)
[2017-07-10] MEDS: Nystatin TOP POWDER* 15 GM BTL TOPICAL SCH ×3 (08:43→22:02)
[2017-07-10] MEDS: Docusate CAP* 100 MG PO SCH ×2 (08:43→22:01)
[2017-07-10] MEDS: Magnesium Hydroxide LIQ* 30 ML UDC PO PRN (08:45)
[2017-07-10 10:12] LABS: Troponin I 0.03 ng/mL (<0.04)
[2017-07-10] MEDS ORDERED: Scopolomine PATCH Remove* 1 NOTE MISC PATCH OFF SCH (19:00)
--- NOTE | 2017-07-10 19:31 | PN ---
Hospitalist Progress Note Responded to CAT call for AMS. Pt per nursing was staring to the rightand confused. By the time I arrived patient a and o times three following commands , finger to nose intact bilaterally, and speech clear, no facial droop, no arm drift, no focal deficits. Recent narc given ? r/t narc. Neuro checks q2hr ordered ct brain labs, bmp and u/a,
[2017-07-10 19:48] LABS: Hematocrit 28 % (35-47); Hemoglobin 9.7 g/dl (12.0-16.0); Mean Corpuscular HGB Conc 35 g/dl (31-36); Mean Corpuscular Hemoglobin 31 pg (27-31); Mean Corpuscular Volume 89 fL (80-97); Mean Platelet Volume 7 um3 (7.4-10.4); Red Blood Count 3.17 10^6/ul (4.0-5.4); Red Cell Distribution Width 13 % (10.5-15); White Blood Count 7.4 10^3/ul (3.5-10.8)
[2017-07-10 20:00] LABS: BUN/Creatinine Ratio 18.9 (8-20); Calcium 8.4 mg/dL (8.6-10.3); EGFR African American 143.5 (>60); EGFR Non-African American 111.6 (>60); Potassium 3.6 mmol/L (3.5-5.0)
--- NOTE | 2017-07-10 20:02 | RAD ---
HISTORY: Altered mental status COMPARISONS: None TECHNIQUE: Multiple contiguous axial CT scans were obtained of the head without intravenous contrast. FINDINGS: HEMORRHAGE/INFARCT: There is hypoattenuation consistent with a subacute nonhemorrhagic infarct of the right inferior cerebellum. Elsewhere, there is no hemorrhage or acute infarct. MASSES/SHIFT: There is no mass or shift. EXTRA-AXIAL SPACES: There are no extra-axial fluid collections. SULCI AND VENTRICLES: The sulci and ventricles are normal in size and position for the patient's stated age. CEREBRUM: There is hypoattenuation of the periventricular and subcortical white matter. BRAINSTEM: There are no focal parenchymal abnormalities. CEREBELLUM: There is hypoattenuation consistent with subacute nonhemorrhagic infarct of the right inferior cerebellum VESSELS: The vessels are grossly normal. PARANASAL SINUSES: The paranasal sinuses are clear. ORBITS: The orbits are unremarkable. BONES AND SOFT TISSUE: No bone or soft tissue abnormalities are noted. OTHER: None IMPRESSION: 1. 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 2. CHRONIC SMALL VESSEL ISCHEMIC CHANGES.
[2017-07-10] MEDS: Acetaminophen TAB* 325 MG PO PRN (22:01)
[2017-07-10] MEDS: [UNRECOGNIZED DRUG - OTHER] PO SCH ×2 (22:29→23:21)
[2017-07-11] MEDS: NS 0.9% 1000 ML* 1,000 ML IV SCH (00:12)
[2017-07-11 06:01] LABS: Hematocrit 28 % (35-47); Hemoglobin 9.7 g/dl (12.0-16.0); Mean Corpuscular HGB Conc 34 g/dl (31-36); Mean Corpuscular Hemoglobin 30 pg (27-31); Mean Corpuscular Volume 89 fL (80-97); Mean Platelet Volume 7 um3 (7.4-10.4); Red Blood Count 3.19 10^6/ul (4.0-5.4); Red Cell Distribution Width 14 % (10.5-15); White Blood Count 8.1 10^3/ul (3.5-10.8)
[2017-07-11 06:07] LABS: Urine Bacteria Absent (Absent); Urine Bilirubin Negative (Negative); Urine Glucose Negative (Negative); Urine Nitrite Negative (Negative)
[2017-07-11 06:14] LABS: BUN/Creatinine Ratio 20.5 (8-20); Calcium 8.5 mg/dL (8.6-10.3); EGFR African American 177.9 (>60); EGFR Non-African American 138.3 (>60); Potassium 3.5 mmol/L (3.5-5.0)
--- NOTE | 2017-07-11 07:45 | PN ---
Progress Note - Progress Note Date of Service: 07/11/17 SOAP: Subjective: pt resting comfortably with only minimal left knee pain, A&O x 3 Objective: Vital Signs Temp Pulse Resp BP Pulse Ox 99.3 F 94 18 125/68 99 07/11/17 03:35 07/11/17 03:35 07/11/17 03:35 07/11/17 03:35 07/11/17 03:35 Laboratory Last Values WBC 8.1 10^3/ul (3.5-10.8) 07/11/17 05:51 RBC 3.19 10^6/ul (4.0-5.4) L 07/11/17 05:51 Hgb 9.7 g/dl (12.0-16.0) L 07/11/17 05:51 Hct 28 % (35-47) L 07/11/17 05:51 MCV 89 fL (80-97) 07/11/17 05:51 MCH 30 pg (27-31) 07/11/17 05:51 MCHC 34 g/dl (31-36) 07/11/17 05:51 RDW 14 % (10.5-15) 07/11/17 05:51 Plt Count 193 10^3/ul (150-450) 07/11/17 05:51 MPV 7 um3 (7.4-10.4) L 07/11/17 05:51 Neut % (Auto) 72.6 % (38-83) 07/11/17 05:51 Lymph % (Auto) 13.7 % (25-47) L 07/11/17 05:51 [place] % (Auto) 9.2 % (1-9) H 07/11/17 05:51 Eos % (Auto) 3.8 % (0-6) 07/11/17 05:51 Baso % (Auto) 0.7 % (0-2) 07/11/17 05:51 Absolute Neuts (auto) 5.9 10^3/ul (1.5-7.7) 07/11/17 05:51 Absolute Lymphs (auto) 1.1 10^3/ul (1.0-4.8) 07/11/17 05:51 Absolute Monos (auto) 0.7 10^3/ul (0-0.8) 07/11/17 05:51 Absolute Eos (auto) 0.3 10^3/ul (0-0.6) 07/11/17 05:51 Absolute Basos (auto) 0.1 10^3/ul (0-0.2) 07/11/17 05:51 Absolute Nucleated RBC 0 10^3/ul 07/11/17 05:51 Nucleated RBC % 0 07/11/17 05:51 INR (Anticoag Therapy) 2.15 (0.89-1.11) H 07/11/17 05:51 Sodium 137 mmol/L (133-145) 07/11/17 05:51 Potassium 3.5 mmol/L (3.5-5.0) 07/11/17 05:51 Chloride 102 mmol/L (101-111) 07/11/17 05:51 Carbon Dioxide 31 mmol/L (22-32) 07/11/17 05:51 Anion Gap 4 mmol/L (2-11) 07/11/17 05:51 BUN 9 mg/dL (6-24) 07/11/17 05:51 Creatinine 0.44 mg/dL (0.51-0.95) L 07/11/17 05:51 Est GFR ( Amer) 177.9 (>60) 07/11/17 05:51 Est GFR (Non-Af Amer) 138.3 (>60) 07/11/17 05:51 BUN/Creatinine Ratio 20.5 (8-20) H 07/11/17 05:51 Glucose 110 mg/dL (70-100) H 07/11/17 05:51 Calcium 8.5 mg/dL (8.6-10.3) L 07/11/17 05:51 Magnesium 1.9 mg/dL (1.9-2.7) 07/10/17 06:40 Troponin I 0.03 ng/mL (<0.04) 07/10/17 06:40 Urine Color Yellow 07/11/17 05:45 Urine Appearance Clear 07/11/17 05:45 Urine pH 7.0 (5-9) 07/11/17 05:45 Ur Specific Simpson 1.009 (1.010-1.030) L 07/11/17 05:45 Urine Protein Negative (Negative) 07/11/17 05:45 Urine Ketones Negative (Negative) 07/11/17 05:45 Urine Blood 2+ (Negative) H 07/11/17 05:45 Urine Nitrate Negative (Negative) 07/11/17 05:45 Urine Bilirubin Negative (Negative) 07/11/17 05:45 Urine Urobilinogen Negative (Negative) 07/11/17 05:45 Ur Leukocyte Esterase Negative (Negative) 07/11/17 05:45 Urine WBC (Auto) Absent (Absent) 07/11/17 05:45 Urine RBC (Auto) 2+(6-10/hpf) (Absent) H 07/11/17 05:45 Ur Squamous Epith Cells Present (Absent) H 07/11/17 05:45 Urine Bacteria Absent (Absent) 07/11/17 05:45 Urine Glucose Negative (Negative) 07/11/17 05:45 Blood Type O Positive 07/07/17 18:30 Antibody Screen Negative 07/07/17 18:30 Crossmatch See Detail 07/07/17 18:30 incision: c/d/i PE: NVI Assessment: s/p left TK revision Plan: 1) PT/OT- TTWB only x 4 weeks LLE 2) Lovenox/ Coumadin/SCD's for DVT prophylaxis 3) Hospitalist co-managing 4) will need inpt rehab when medically stable
[2017-07-11] MEDS: Docusate CAP* 100 MG PO SCH ×2 (08:35→20:14)
[2017-07-11] MEDS: Vitamin THERAPEUTIC TAB PO SCH (08:35)
[2017-07-11] MEDS: oxyCODONE/Acetamin 5/325 MG* TAB PO PRN ×3 (08:36→20:15)
[2017-07-11] MEDS: Magnesium Hydroxide LIQ* 30 ML UDC PO PRN (08:37)
[2017-07-11] MEDS: Nystatin TOP POWDER* 15 GM BTL TOPICAL SCH ×3 (08:52→20:16)
--- NOTE | 2017-07-11 10:02 | PN ---
Subjective Date of Service: 07/11/17 Interval History: Pt had a short burst of asymptomatic SVT this aM -lasted seconds Also was slow to awake for dinner last night with speech difficulty and looking to R, 02 sat was noted to be 86% on RA. Slowly the symptoms resolved. thought to be related to narcotics and hypoxemia, but pt was transferred to telem floor and CT of brain was done. Since then no recurrence of symptoms. Now on telem and neurochecks Objective Active Medications: Acetaminophen (Tylenol Tab*) 650 mg PO Q4H PRN PRN Reason: PAIN OR TEMPERATURE Last Admin: 07/10/17 22:01 Dose: 650 mg Diphenhydramine HCl (Benadryl Iv*) 25 mg IV Q6H PRN PRN Reason: itching Docusate Sodium (Colace Cap*) 100 mg PO BID [facility] Last Admin: 07/11/17 08:35 Dose: 100 mg Sodium Chloride (Ns 0.9% 1000 Ml*) 1,000 mls @ 75 mls/hr IV PER RATE [facility] Last Admin: 07/11/17 00:12 Dose: 75 mls/hr Lactulose (Lactulose*) 30 ml PO Q6H PRN PRN Reason: constipation Last Admin: 07/10/17 22:01 Dose: 30 ml Magnesium Hydroxide (Milk Of Magnesia Liq*) 30 ml PO Q6H PRN PRN Reason: constipation Last Admin: 07/11/17 08:37 Dose: 30 ml Morphine Sulfate (Morphine Inj (Syringe)*) 2 mg IV Q30M PRN PRN Reason: PAIN - UNCONTROLLED Last Admin: 07/08/17 11:37 Dose: 2 mg Multivitamins (Theragran Tab*) 1 tab PO DAILY [facility] Last Admin: 07/11/17 08:35 Dose: 1 tab Pto:Nf Med* Magnesium Malate 125mg 2 admin PO 2100 [facility] Last Admin: 07/10/17 23:21 Dose: 2 admin Nystatin (Nystatin Top Powder*) 1 applic TOPICAL TID [facility] Last Admin: 07/11/17 08:52 Dose: Not Given Ondansetron HCl (Zofran Inj*) 4 mg IV Q6H PRN PRN Reason: nausea Last Admin: 07/10/17 02:17 Dose: 4 mg Oxycodone HCl (Roxycodone Tab*) 10 mg PO Q4H PRN PRN Reason: PAIN - SEVERE Last Admin: 07/10/17 23:23 Dose: 10 mg Oxycodone/Acetaminophen (Percocet 5/325 Tab*) 1 tab PO Q3H PRN PRN Reason: PAIN - MODERATE Last Admin: 07/11/17 08:36 Dose: 1 tab Oxycodone/Acetaminophen (Percocet 5/325 Tab*) 2 tab PO Q3H PRN PRN Reason: PAIN - MODERATE TO SEVERE Last Admin: 07/10/17 10:32 Dose: 2 tab Pharmacy Profile Note (Scopolomine Patch Remove*) 1 note PATCH OFF .AFTER 72 HOURS [facility] Last Admin: 07/10/17 19:16 Dose: 1 patch Pharmacy Profile Note (Coumadin Daily Reminder*) 1 note FOLLOW UP 1700 [facility] Last Admin: 07/10/17 17:02 Dose: 1 note Prochlorperazine Edisylate (Compazine Inj*) 5 mg IV Q6H PRN PRN Reason: NAUSEA/VOMITING Last Admin: 07/08/17 11:37 Dose: 5 mg Scopolamine (Transderm-Scop 1.5 Mg Patch*) 1 patch TRANSDERM Q72H [facility] Last Admin: 07/08/17 10:16 Dose: 1 patch Warfarin Sodium (Coumadin Tab(*)) 2 mg PO ONCE@1700 NR PRN Reason: Protocol Stop: 07/11/17 23:59 Vital Signs 07/10/17 07/10/17 07/10/17 10:32 12:00 12:03 Temperature 98.7 F Pulse Rate 100 Respiratory 16 16 Rate Blood Pressure 121/56 (mmHg) O2 Sat by Pulse 92 85 Oximetry 07/10/17 07/10/17 07/10/17 12:32 14:25 16:00 Temperature Pulse Rate Respiratory 16 16 Rate Blood Pressure (mmHg) O2 Sat by Pulse 92 Oximetry 07/10/17 07/10/17 07/10/17 16:05 16:25 18:50 Temperature 97.8 F Pulse Rate 92 95 Respiratory 18 16 16 Rate Blood Pressure 101/62 125/69 (mmHg) O2 Sat by Pulse 95 94 Oximetry 07/10/17 07/10/17 07/10/17 19:01 19:25 19:37 Temperature 98.8 F Pulse Rate 97 Respiratory 14 16 Rate Blood Pressure 138/70 (mmHg) O2 Sat by Pulse 92 100 Oximetry 07/10/17 07/10/17 07/10/17 20:09 22:10 22:11 Temperature 99.4 F 97.9 F Pulse Rate 103 103 Respiratory 18 16 Rate Blood Pressure 131/64 130/71 (mmHg) O2 Sat by Pulse 97 87 98 Oximetry 07/10/17 07/10/17 07/10/17 22:35 23:23 23:57 Temperature 98.1 F 99.7 F Pulse Rate 60 97 Respiratory 12 12 18 Rate Blood Pressure 114/69 112/69 (mmHg) O2 Sat by Pulse 100 98 Oximetry 07/11/17 07/11/17 07/11/17 00:00 03:35 07:48 Temperature 99.3 F Pulse Rate 94 108 Respiratory 18 20 Rate Blood Pressure 125/68 147/74 (mmHg) O2 Sat by Pulse 98 99 92 Oximetry 07/11/17 08:36 Temperature Pulse Rate Respiratory 20 Rate Blood Pressure (mmHg) O2 Sat by Pulse Oximetry Oxygen Devices in Use Now: Nasal Cannula - at 2.5 L Appearance: 77 yo F in nAD, AAOx3 Eyes: No Scleral Icterus, PERRLA Ears/Nose/Mouth/Throat: NL Teeth, Lips, Gums, Mucous Membranes Moist Neck: NL Appearance and Movements; NL JVP, Trachea Midline Respiratory: Symmetrical Chest Expansion and Respiratory Effort, - - creckles at b/l bases Cardiovascular: NL Sounds; No Murmurs; No JVD, RRR Abdominal: NL Sounds; No Tenderness; No Distention Lymphatic: No Cervical Adenopathy Extremities: No Clubbing, Cyanosis, - - trace ankle edema Skin: - - left knee post op dressings not removed Neurological: Alert and Oriented x 3, NL Muscle Strength and Tone Result Diagrams: 07/11/17 05:51 07/11/17 05:51 Microbiology and Other Data: Microbiology 07/07/17 13:22 Anaerobic Culture - Preliminary Wound No Growth Day 1 Gram Stain - Final Wound Culture - Preliminary No Growth Day 1 07/07/17 22:00 Nasal Screen MRSA (PCR)(ALVARO) - Final Nasal Mrsa Negative Assess/Plan/Problems-Billing Assessment: 77 yo f with h/o HTN and post op PE 8 yrs ago s/p L knee revision on 07/07/17 - Patient Problems (1) Altered mental status Comment: on 07/10/17 when waking up for dinner noted to have hypoxemia , speech problems and staring to R. CT brain shows "subacute cerebellar CVA" d/w Dr. Servin. Pt could have had a periop CVA, but yesterday's symptoms cannot be explained by cerebellar CVA. Due to pt now with therapeutic INR, will not institute any other antiplatelet tx. MRI brain would be helpful, but that needs to be d/w with radiology in AM since pt is post op. Will also obtain EEG For now cont current Coumadin, neurochecks and telem. (2) S/P left knee surgery Comment: doing reasonably well. EBL was 800 ml (3) Postoperative anemia due to acute blood loss Comment: s/p 3 U PRBC transfusion,Hb now stable (4) Tachycardia Comment: May be related to pain/blood loss. Echo shows good EF and no significant pulm HTN, but hyperdynamic LV (? hypovolemia) EKG shows sinus tachy Slowly improving Pt denies CP/SOB, but developed hypoxemia and CTA will be ordered today, but due to shellfish allergy may need to be premedicated with prednisone (5) HTN (hypertension) Comment: higher this aM, but in the face of possible CVA will cont (6) DVT prophylaxis Comment: as per ortho: Coumadin INR 2.1 today Status and Disposition: Inpatient medicine consult, will follow daily
[2017-07-11] MEDS ORDERED: Iohexol 350* (CONTRAST) 500 ML MDV IV ONE (10:29)
[2017-07-11] MEDS: Scopolamine 1.5 mg* PATCH TRANSDERM SCH (10:50)
--- NOTE | 2017-07-11 12:26 | RAD ---
HISTORY: Stroke COMPARISONS: Head CT dated July 10, 2017 TECHNIQUE: Multiple contiguous axial CT scans were obtained of the head and neck After the administration of nonionic intravenous contrast timed to the systemic arterial phase of contrast enhancement. Coronal and sagittal multiplanar reformations are submitted for review. Multiple 3-D maximum intensity projection reconstructions are also submitted for review. FINDINGS: CTA NECK: AORTIC ARCH: There is calcific atherosclerotic disease of the aortic arch, without ostial or proximal stenosis of the cephalic great vessels. There is a normal three-vessel branching pattern. RIGHT VERTEBRAL ARTERY: The right vertebral artery is patent along its course, without stenosis. LEFT VERTEBRAL ARTERY: The left vertebral artery is patent along its course, without stenosis. DOMINANCE: The vertebral arteries are codominant. RIGHT COMMON CAROTID ARTERY: The right common carotid artery is patent. The right carotid bifurcation occurs at C4-C5 RIGHT INTERNAL CAROTID ARTERY: There is atheromatous disease of the right carotid bifurcation, without right internal carotid artery stenosis by NASCET criteria. The right internal carotid artery is tortuous. RIGHT EXTERNAL CAROTID ARTERY: The right external carotid artery is unremarkable. LEFT COMMON CAROTID ARTERY: The left common carotid artery is patent. The left carotid bifurcation occurs at C4-C5 LEFT INTERNAL CAROTID ARTERY: There is atheromatous disease of the left carotid bifurcation, without left internal carotid artery stenosis by NASCET criteria. LEFT EXTERNAL CAROTID ARTERY: The left external carotid artery is unremarkable. VENOUS CIRCULATION: The venous system is unremarkable. SALIVARY GLANDS: The parotid glands, submandibular glands, sublingual glands are normal. NASAL CAVITY/NASOPHARYNX: The nasal cavity and nasopharynx are normal. ORAL CAVITY/OROPHARYNX: The oral cavity is obscured by streak artifact from dental amalgam. The visualized oral cavity and oropharynx are unremarkable. LARYNGEAL APPARATUS/HYPOPHARYNX: The laryngeal apparatus and hypopharynx are normal. UPPER AIRWAY/UPPER ESOPHAGUS: The visualized upper airway and esophagus are normal. LUNG APICES: There are bilateral pleural effusions. THYROID GLAND: The thyroid gland is normal. LYMPH NODES: There is no lymphadenopathy by size criteria. BONES AND SOFT TISSUES: No bone or soft tissue abnormalities are noted. CTA HEAD: INTRACRANIAL CIRCULATION: There is nonopacification of the right posterior inferior cerebral artery. 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 This points anteriorly and to the right. The anterior commuting artery complex is otherwise unremarkable, and is dominant over the A1 segment of the right anterior cerebral artery. There is atherosclerosis of the intracranial circulation, without other appreciable occlusion or stenosis.. The posterior communicating arteries are diminutive, if present. VENOUS CIRCULATION: The venous system is unremarkable. PERFUSION: There is hypoperfusion corresponding to the right inferior cerebellar infarct. HEMORRHAGE/INFARCT: There is no hemorrhage or acute infarct. MASSES/SHIFT: There is no mass or shift. EXTRA-AXIAL SPACES: There are no extra-axial fluid collections. SULCI AND VENTRICLES: The sulci and ventricles are normal in size and position for the patient's stated age. CEREBRUM: There is hypoattenuation of the periventricular and subcortical white matter. BRAINSTEM: There are no focal parenchymal abnormalities. CEREBELLUM: Again noted is hypoattenuation of the right inferior cerebellum consistent with subacute infarct. PARANASAL SINUSES: The paranasal sinuses are clear. ORBITS: The orbits are unremarkable. BONES AND SOFT TISSUE: There is diffuse osteopenia. Degenerative changes are noted OTHER: There is no abnormal enhancement. IMPRESSION: 1. NO INTERNAL CAROTID ARTERY STENOSIS BY NASCET CRITERIA. 2. NONOPACIFICATION OF THE RIGHT POSTERIOR INFERIOR CEREBELLAR ARTERY, CONSISTENT WITH OCCLUSION GIVEN THE PRESENCE OF A SUBACUTE NONHEMORRHAGIC INFARCT OF THE RIGHT INFERIOR CEREBELLUM. 3. 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 4. ATHEROSCLEROSIS 5. BILATERAL PLEURAL EFFUSIONS. CPT II Codes: 3100F
[2017-07-11] MEDS ORDERED: Warfarin TAB(*) 2 MG PO NR (17:00)
[2017-07-11 18:22] LABS: HDL Cholesterol 28.2 mg/dL
[2017-07-11] MEDS: [UNRECOGNIZED DRUG - OTHER] PO SCH (20:16)
--- NOTE | 2017-07-12 03:56 | CONS ---
CC: Dr. Jes Lees * NEUROLOGY CONSULTATION: DATE OF CONSULT: 07/11/17 LOCATION: She is an inpatient in room 446. REFERRING PROVIDER: Luigi Hale NP CHIEF COMPLAINT: Abnormal CT scan, vertigo, nausea, and vomiting. HISTORY OF PRESENT ILLNESS: Maggie Terry is a 77-year-old right-handed woman, who was admitted on 07/07/17 for revision of left total knee arthroplasty. She had a knee replacement many years ago and she had an injury in March and she was having a lot of pain. There was a significant pathology and imaging and it was offered and elected to go ahead and have surgery. She underwent surgery on 07/07/17. She had some anemia after, requiring a transfusion. Postoperatively, she complained of dizziness and vomiting. She had an episode yesterday where she seemed to be not responsive and staring to the right and confused. Within a few minutes, she was responding. This led to a CT scan of the brain, which I reviewed and reveals a subacute appearing right cerebellar infarction. There is some mass effect upon the fourth ventricle. She has not been up on her feet since the surgery. She has noted that her right handwriting is worse and very cramped. She does not have any nausea today, but is a little bit queasy. She notes when she moves her head , she feels briefly dizzy, but nothing like she had a few days ago. She has a prior history of stroke in 2008 according to the patient, which resulted in some right-sided weakness and change in her voice. She was anticoagulated after her surgery this hospitalization and has a prior history of a postoperative pulmonary embolism. There is no history of heart disease and an echocardiogram this hospitalization for postoperative tachycardia did not reveal any significant abnormalities. PAST MEDICAL HISTORY: Notable for cerebrovascular disease as outlined above, hypertension for decades, no history of tobacco use or diabetes. MEDICATIONS: At home consist of: 1. Enalapril 5 mg p.o. b.i.d. 2. Magnesium supplementation. 3. Ibuprofen p.r.n. joint pain. Current medications include: 1. Warfarin. 2. Enalapril 5 mg p.o. b.i.d. 3. Colace 100 mg p.o. b.i.d. 4. Morphine sulfate 2 mg IV q.3 hours p.r.n. pain. 5. Oxycodone 10 mg p.o. q.4 hours p.r.n. pain. 6. Scopolamine patch 1.5 mg q.72 hours. ALLERGIES: She is allergic to SHELLFISH and LATEX. FAMILY HISTORY: Notable for mother dying from complications of a stroke. SOCIAL HISTORY: She was at home. 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 She does not smoke. She rarely drinks alcohol. REVIEW OF SYSTEMS: Negative for headaches, double vision, change in speech, or difficulty swallowing. No numbness on the face or limbs. There is no history of seizures or head trauma. PHYSICAL EXAM: She is well nourished and appears well hydrated. Temperature is 98.1, blood pressure most recently 117/72, heart rate is about 90 and seems regular, respirations 18, and oxygen saturation is 97% on room air. Heart is in a regular rate and rhythm with a grade 1/6 early systolic murmur, left lower sternal border. Carotid pulses are symmetrical. There are no cervical bruits. Oral mucosa is moist and atraumatic. Lungs are clear anterolaterally. Neurologic exam: Pupils react equally to light from 3 to 2 mm. There is no ptosis. Eye movements are normal, but after vigorous head movement, she has right- beating nystagmus and right gaze. Visual estes are full to confrontation. Funduscopic exam reveals sharps discs and no embolic phenomenon. The patient's musculature is intact and symmetric. Facial sensation to light touch and temperature is symmetric. Tongue protrudes in the midline, palate rises symmetrically. There is no dysarthria. Hearing is intact bilaterally. Neck strength is normal in bed. Motor exam reveals normal strength in the upper extremities. There is no pronator drift. She has normal dorsiflexor strength in the legs, but I did not test her proximal strength. [id number] maneuvers were all clumsy in the right hand. Finger taps are a little clumsy in the right hand than the left. Rapid alternating maneuvers are normal in both hands. Reflexes are symmetrical in the upper extremities, plantar responses are flexor bilaterally. She is alert and oriented to person, place, and time. She has difficulties with some attention and concentration, but generally corrects herself pretty quickly. Fund of knowledge is good. LABORATORY DATA: Includes a chemistry profile with a glucose of 110 today, she had a hemoglobin A1c back in April of 2015 of 5.7%. Last cholesterol in the records is from 04/16/17 was 189 and the LDL 129. IMPRESSION AND PLAN: Right posterior inferior cerebellar artery infarction. The rest of her CT angiogram reveals a diffuse atherosclerotic disease, but no significant areas of stenosis. Her echocardiogram does not reveal an embolic source. She is already anticoagulated. Recommend checking a lipid profile and also a hemoglobin A1c. She is going to be on Coumadin at least for now and once she no longer needs to be on an anticoagulation for a postoperative prevention, then I would recommend she be transitioned to Plavix 75 mg unless a cardioembolic source is found. If she does have evidence of atrial fibrillation during her hospitalization, then I would recommend longer term cardiac monitoring initially for a month. If her LDL is over 100, then she should be started on a statin as well. Her blood pressure currently is not elevated and I certainly would not add anything to lower it further. Recommend she remain well hydrated. She is presumably about 4 days out now from her cerebellar infarction, so I think that likelihood of obstructive hydrocephalous is on the downhill side. Nevertheless, if she develops markedly decreased responsiveness, I would get a stat head CT scan. I do not think she necessarily needs an evaluation for a patent foramen ovale unless she has recurrent strokes and closure is being contemplated. At this point, there is no antiplatelet therapy or certainly warfarin. I would recommend that she be evaluated by the physical medicine rehab unit as she is likely to have rehabilitation complicated by gait ataxia. I will discuss my recommendations with the hospitalist who is on her case. [id number]/[facility] #: [id number] RAULITO
[2017-07-12] MEDS: oxyCODONE/Acetamin 5/325 MG* TAB PO PRN ×3 (04:57→23:53)
[2017-07-12 05:06] LABS: Hematocrit 26 % (35-47)
[2017-07-12 05:24] LABS: Calcium 8.3 mg/dL (8.6-10.3); EGFR African American 198.5 (>60); EGFR Non-African American 154.4 (>60); Magnesium 2.1 mg/dL (1.9-2.7); Potassium 3.3 mmol/L (3.5-5.0)
[2017-07-12] MEDS: Acetaminophen TAB* 325 MG PO PRN (07:08)
[2017-07-12] MEDS ORDERED: Iohexol 350* (CONTRAST) 500 ML MDV IV ONE (07:47)
[2017-07-12] MEDS: oxyCODONE TAB* 5 MG TAB PO PRN ×2 (08:35→19:58)
[2017-07-12] MEDS: Enalapril TAB* 5 MG PO SCH (08:36)
[2017-07-12] MEDS: Docusate CAP* 100 MG PO SCH ×2 (08:37→20:05)
[2017-07-12] MEDS: Vitamin THERAPEUTIC TAB PO SCH (08:37)
[2017-07-12] MEDS: Nystatin TOP POWDER* 15 GM BTL TOPICAL SCH ×3 (08:41→21:22)
--- NOTE | 2017-07-12 11:31 | PN ---
Progress Note - Progress Note Date of Service: 07/12/17 SOAP: Subjective: []Patient seen at bedside. She states that her dressing was changed last night but didnt know by whom. She feels well, denies recent dizziness since her previous episode, denies SOB or CP. Her knee pain is well managed overall. Objective: [] Vital Signs Temp 98.5 F 07/12/17 07:48 Pulse 90 07/12/17 07:48 Resp 18 07/12/17 08:35 BP 131/65 07/12/17 07:48 Pulse Ox 98 07/12/17 07:48 Intake & Output 07/11/17 07/12/17 07/12/17 18:59 06:59 18:59 Intake Total 865 100 200 Output Total 1730 650 Balance 865 -1630 -450 Weight 183 lb 183 lb Intake: IV Fluids 525 NS (0.9%) 525 Oral 340 100 200 Output: Urine 1730 650 Other: Estimated Void Large Medium # Bowel Movements 0 # Voids 2 2 4 Laboratory Results - last 24 hr 07/11/17 07/11/17 07/12/17 17:30 17:33 04:30 Hgb 9.0 L Hct 26 L INR (Anticoag Therapy) Sodium Potassium Chloride Carbon Dioxide Anion Gap BUN Creatinine Est GFR ( Amer) Est GFR (Non-Af Amer) BUN/Creatinine Ratio Glucose Hemoglobin A1c 5.4 Calcium Magnesium Triglycerides 106 Cholesterol 132 LDL Cholesterol 83 HDL Cholesterol 28.2 07/12/17 07/12/17 04:30 04:30 Hgb Hct INR (Anticoag Therapy) 1.45 H Sodium 141 Potassium 3.3 L Chloride 103 Carbon Dioxide 36 H Anion Gap 2 BUN 8 Creatinine 0.40 L Est GFR ( Amer) 198.5 Est GFR (Non-Af Amer) 154.4 BUN/Creatinine Ratio 20.0 Glucose 112 H Hemoglobin A1c Calcium 8.3 L Magnesium 2.1 Triglycerides Cholesterol LDL Cholesterol HDL Cholesterol Left knee dressings were removed, scant drop of serous drainage on 1 4x4, wound healing well new 4x4s, RUTHIE applied calf NT and soft +DF/PF left ankle sensation intact distally Assessment: []s/p revision LTK POD #5 CVA chronic vs new event Plan: []CTA ordered by Dr. Luong today Continue Coumadin, 4 mg today TTWB LLE w PT/OT Rehab when medically stable
--- NOTE | 2017-07-12 11:59 | RAD ---
INDICATION: Evaluate for pulmonary embolism. COMPARISON: Comparison is made with a prior CT angiogram of the chest from August 21, 2011. TECHNIQUE: A CT angiogram of the chest was performed with intravenous following intravenous injection of 73 ml of Omnipaque 350 nonionic contrast. Contiguous axial sections were obtained from the lung apices through the lung bases. Images were reconstructed in the coronal and sagittal planes. FINDINGS: There is slightly suboptimal opacification of the pulmonary arteries. No intraluminal filling defect or pulmonary embolism is seen. The heart is within normal limits in size. No pericardial effusion is present. The thoracic aorta is normal in caliber and demonstrates homogeneous contrast opacification. No significant enlarged mediastinal or hilar lymph nodes are seen. There are small bilateral pleural effusions and small dependent bilateral lower lobe infiltrates. There is a moderate to severe dorsal scoliosis convex toward the right side. There appears to be a mild subacute compression fracture of the superior endplate of the T11 vertebral body and a chronic moderate to severe compression fracture of the L1 vertebral body. There is severe bilateral arthritic change in the shoulders. IMPRESSION: 1. SLIGHTLY LIMITED EXAM, NO EVIDENCE FOR PULMONARY EMBOLISM. 2. SMALL BILATERAL PLEURAL EFFUSIONS AND SMALL DEPENDENT BILATERAL LOWER LOBE INFILTRATES SUGGESTIVE OF ATELECTASIS. 3. SUBACUTE COMPRESSION FRACTURE OF THE T11 VERTEBRAL BODY AND CHRONIC COMPRESSION FRACTURE OF THE L1 VERTEBRAL BODY.
[2017-07-12] MEDS: Magnesium Hydroxide LIQ* 30 ML UDC PO PRN (16:24)
[2017-07-12] MEDS ORDERED: Warfarin TAB(*) 4 MG PO ONE (17:00)
--- NOTE | 2017-07-12 19:42 | PN ---
Subjective Date of Service: 07/12/17 Interval History: . denies new s/sx states she is open to rehab if/when accepted s/p EEG today - awaiting final interpretation. CTA neg for PE ortho comanaging. hgb stable Family History: Unchanged from Admission Social History: Unchanged from Admission Past Medical History: Unchanged from Admission Objective Active Medications: . Acetaminophen (Tylenol Tab*) 650 mg PO Q4H PRN PRN Reason: PAIN OR TEMPERATURE Last Admin: 07/12/17 07:08 Dose: 650 mg Diphenhydramine HCl (Benadryl Iv*) 25 mg IV Q6H PRN PRN Reason: itching Docusate Sodium (Colace Cap*) 100 mg PO BID [facility] Last Admin: 07/12/17 08:37 Dose: 100 mg Enalapril Maleate (Vasotec Tab*) 5 mg PO DAILY [facility] Last Admin: 07/12/17 08:36 Dose: 5 mg Lactulose (Lactulose*) 30 ml PO Q6H PRN PRN Reason: constipation Last Admin: 07/12/17 16:24 Dose: 30 ml Magnesium Hydroxide (Milk Of Magnesia Liq*) 30 ml PO Q6H PRN PRN Reason: constipation Last Admin: 07/12/17 16:24 Dose: 30 ml Morphine Sulfate (Morphine Inj (Syringe)*) 2 mg IV Q30M PRN PRN Reason: PAIN - UNCONTROLLED Last Admin: 07/08/17 11:37 Dose: 2 mg Multivitamins (Theragran Tab*) 1 tab PO DAILY [facility] Last Admin: 07/12/17 08:37 Dose: 1 tab Pto:Nf Med* Magnesium Malate 125mg 2 admin PO 2100 [facility] Last Admin: 07/11/17 20:16 Dose: 2 admin Nystatin (Nystatin Top Powder*) 1 applic TOPICAL TID [facility] Last Admin: 07/12/17 16:22 Dose: Not Given Ondansetron HCl (Zofran Inj*) 4 mg IV Q6H PRN PRN Reason: nausea Last Admin: 07/10/17 02:17 Dose: 4 mg Oxycodone HCl (Roxycodone Tab*) 10 mg PO Q4H PRN PRN Reason: PAIN - SEVERE Last Admin: 07/12/17 08:35 Dose: 10 mg Oxycodone/Acetaminophen (Percocet 5/325 Tab*) 1 tab PO Q3H PRN PRN Reason: PAIN - MODERATE Last Admin: 07/12/17 04:57 Dose: 1 tab Oxycodone/Acetaminophen (Percocet 5/325 Tab*) 2 tab PO Q3H PRN PRN Reason: PAIN - MODERATE TO SEVERE Last Admin: 07/12/17 14:14 Dose: 2 tab Pharmacy Profile Note (Scopolomine Patch Remove*) 1 note PATCH OFF .AFTER 72 HOURS [facility] Last Admin: 07/10/17 19:16 Dose: 1 patch Pharmacy Profile Note (Coumadin Daily Reminder*) 1 note FOLLOW UP 1700 [facility] Last Admin: 07/12/17 16:23 Dose: 1 note Prochlorperazine Edisylate (Compazine Inj*) 5 mg IV Q6H PRN PRN Reason: NAUSEA/VOMITING Last Admin: 07/08/17 11:37 Dose: 5 mg Scopolamine (Transderm-Scop 1.5 Mg Patch*) 1 patch TRANSDERM Q72H [facility] Last Admin: 07/11/17 10:50 Dose: Not Given . Vital Signs 07/11/17 07/11/17 07/11/17 20:00 20:05 20:07 Temperature 99.0 F Pulse Rate 96 Respiratory 16 16 Rate Blood Pressure 113/67 (mmHg) O2 Sat by Pulse 93 Oximetry 07/11/17 07/11/17 07/12/17 20:15 22:15 00:00 Temperature Pulse Rate Respiratory 16 18 Rate Blood Pressure (mmHg) O2 Sat by Pulse 96 Oximetry Oxygen Devices in Use Now: Nasal Cannula - at 2.5 L Appearance: NAD Eyes: No Scleral Icterus Ears/Nose/Mouth/Throat: Clear Oropharnyx Neck: NL Appearance and Movements; NL JVP Respiratory: Symmetrical Chest Expansion and Respiratory Effort Cardiovascular: NL Sounds; No Murmurs; No JVD Abdominal: NL Sounds; No Tenderness; No Distention Lymphatic: No Cervical Adenopathy Extremities: No Edema Skin: No Rash or Ulcers Neurological: Alert and Oriented x 3 Lines/Tubes/Other Access: Clean, Dry and Intact Peripheral IV Nutrition: Taking PO's Result Diagrams: 07/12/17 04:30 07/12/17 04:30 Microbiology and Other Data: Microbiology 07/07/17 13:22 Anaerobic Culture - Preliminary Wound No Growth Day 1 Gram Stain - Final Wound Culture - Preliminary No Growth Day 1 07/07/17 22:00 Nasal Screen MRSA (PCR)(ALVARO) - Final Nasal Mrsa Negative Assess/Plan/Problems-Billing . Assessment: 77 yo f with h/o HTN and post op PE 8 yrs ago s/p L knee revision on 07/07/17 - Patient Problems (1) Altered mental status Current Visit: Yes Status: Acute Priority: High Code(s): R41.82 - ALTERED MENTAL STATUS, UNSPECIFIED Comment: - Onn 07/10/17 when waking up for dinner noted to have hypoxemia, speech problems and staring to R. - CT brain shows "subacute cerebellar CVA" - INR goal 1 - 2 - EEG read pending - telemetry w/o af (2) DVT prophylaxis Current Visit: Yes Status: Acute Priority: High Code(s): DKB1525 - Comment: as per ortho: Coumadin INR goal 1 - 2 (3) HTN (hypertension) Current Visit: Yes Status: Acute Priority: High Code(s): I10 - ESSENTIAL ( PRIMARY) HYPERTENSION Comment: acceptable values (4) Postoperative anemia due to acute blood loss Current Visit: Yes Status: Acute Priority: High Code(s): D62 - ACUTE POSTHEMORRHAGIC ANEMIA Comment: - s/p 3 U PRBC transfusion, - Hb now stable ~ 9 mg/dL - check daily (5) S/P left knee surgery Current Visit: Yes Status: Acute Priority: High Code(s): Z98.890 - OTHER SPECIFIED POSTPROCEDURAL STATES Comment: doing reasonably well. EBL was 800 ml; s/p transfusion for post-op anemia. (6) Tachycardia Current Visit: Yes Status: Acute Priority: High Code(s): R00.0 - TACHYCARDIA, UNSPECIFIED Comment: May have been related to pain/blood loss. Echo shows good EF and no significant pulm HTN, but hyperdynamic LV (? hypovolemia) EKG showed sinus tachy Improved CTA neg for PE (s/p prednisone prep for shellfish allergy). Status and Disposition: . Inpatient medicine consult, will follow daily
[2017-07-12] MEDS: [UNRECOGNIZED DRUG - OTHER] PO SCH (19:57)
--- NOTE | 2017-07-13 01:25 | EEG ---
ELECTROENCEPHALOGRAPHY: DATE OF STUDY: 07/12/17 - ROOM #446 LOCATION: She is an inpatient. REFERRING PHYSICIAN: Dr. Luong. CLINICAL PROBLEM: Episode of unresponsiveness approximately 2 days prior to this recording. The patient underwent a lower extremity orthopedic procedure. There is evidence of a cerebellar stroke on imaging. MEDICATIONS: Include warfarin, oxycodone, prochlorperazine, scopolamine, morphine. REPORT: This 16-channel EEG is remarkable for background rhythms consisting of a reasonably well-formed alpha rhythm in the posterior derivations at 9 cycles per second. Low voltage beta rhythms are seen bifrontally. The patient is clinically awake. Patient drowses and falls asleep with bitemporal and then central slowing and sleep spindles are seen parasagittally later in the recording. The patient awakes near the end of the recording with a normal arousal response. There are no focal, lateralized, or epileptiform abnormalities. CLINICAL IMPRESSION: Normal awake and asleep EEG. [id number]/[facility] #: [id number] RAULITO
[2017-07-13] MEDS: oxyCODONE/Acetamin 5/325 MG* TAB PO PRN ×3 (03:29→17:55)
[2017-07-13 05:30] LABS: Hematocrit 26 % (35-47); Hemoglobin 8.9 g/dl (12.0-16.0); Mean Corpuscular HGB Conc 34 g/dl (31-36); Mean Corpuscular Hemoglobin 30 pg (27-31); Mean Corpuscular Volume 89 fL (80-97); Mean Platelet Volume 7 um3 (7.4-10.4); Red Blood Count 2.99 10^6/ul (4.0-5.4); Red Cell Distribution Width 14 % (10.5-15); White Blood Count 7.4 10^3/ul (3.5-10.8)
[2017-07-13 05:46] LABS: BUN/Creatinine Ratio 16.7 (8-20); Calcium 8.5 mg/dL (8.6-10.3); EGFR African American 187.7 (>60); EGFR Non-African American 145.9 (>60); Potassium 3.4 mmol/L (3.5-5.0)
[2017-07-13] MEDS: Enalapril TAB* 5 MG PO SCH (08:52)
[2017-07-13] MEDS: Vitamin THERAPEUTIC TAB PO SCH (08:52)
[2017-07-13] MEDS: Docusate CAP* 100 MG PO SCH ×2 (08:52→20:17)
[2017-07-13] MEDS: Nystatin TOP POWDER* 15 GM BTL TOPICAL SCH ×3 (08:55→20:25)
[2017-07-13] MEDS: Ondansetron INJ* 2 MG/ML VIAL IV PRN (09:07)
--- NOTE | 2017-07-13 10:22 | PN ---
Progress Note - Progress Note Date of Service: 07/13/17 SOAP: Subjective: []Patient seen OOB working with GERMAINE Carroll. She is progressing very well with her knee PT exercises and has +SLR actively. She is awaiting confirmation on a rehab bed. Objective: [] Vital Signs Temp 98.4 F 07/13/17 07:40 Pulse 93 07/13/17 07:40 Resp 18 07/13/17 08:53 BP 133/68 07/13/17 07:40 Pulse Ox 96 07/13/17 07:46 Intake & Output 07/12/17 07/13/17 07/13/17 18:59 06:59 18:59 Intake Total 200 0 Output Total 1850 0 Balance -1650 0 Weight 183 lb Intake: Oral 200 0 Output: Urine 1850 0 Other: Date of Last Bowel 07/13/17 Movement # Bowel Movements 2 1 Estimated Stool Amount Medium Large # Voids 4 0 Laboratory Results - last 24 hr 07/13/17 07/13/17 04:32 04:32 WBC 7.4 RBC 2.99 L Hgb 8.9 L Hct 26 L MCV 89 MCH 30 MCHC 34 RDW 14 Plt Count 224 MPV 7 L Neut % (Auto) 67.7 Lymph % (Auto) 18.5 L Slope % (Auto) 8.9 Eos % (Auto) 4.4 Baso % (Auto) 0.5 Absolute Neuts (auto) 5.0 Absolute Lymphs (auto) 1.4 Absolute Monos (auto) 0.7 Absolute Eos (auto) 0.3 Absolute Basos (auto) 0 Absolute Nucleated RBC 0 Nucleated RBC % 0 Sodium 139 Potassium 3.4 L Chloride 101 Carbon Dioxide 35 H Anion Gap 3 BUN 7 Creatinine 0.42 L Est GFR ( Amer) 187.7 Est GFR (Non-Af Amer) 145.9 BUN/Creatinine Ratio 16.7 Glucose 99 Calcium 8.5 L Left knee dressings dry and intact calf NT and soft +DF/PF excellent strength left quads sensation intact Assessment: []s/p revision LTK POD #6 Cerebellar CVA Plan: []PT OT, TTWB LLE Coumadin with Lovenox bridge- INR pending rehab when bed available and stable medically for discharge
[2017-07-13] MEDS ORDERED: oxyCODONE TAB* 5 MG TAB PO PRN (11:17)
[2017-07-13] MEDS: oxyCODONE TAB* 5 MG TAB PO PRN ×2 (11:24→20:20)
[2017-07-13] MEDS ORDERED: Warfarin TAB(*) 6 MG PO ONE (17:00)
[2017-07-13] MEDS: [UNRECOGNIZED DRUG - OTHER] PO SCH (20:17)
[2017-07-13] MEDS ORDERED: Potassium Chlor TAB* 20 MEQ TAB.ER PO ONE (21:01)
--- NOTE | 2017-07-13 21:05 | PN ---
Subjective Date of Service: 07/13/17 Interval History: . denies pain at this time ROMERO earlier, but gone with some pain meds given. good spirits eating lunch as I interview her. awaiting rehab bed medically clear from my standpoint... . Family History: Unchanged from Admission Social History: Unchanged from Admission Past Medical History: Unchanged from Admission Objective Active Medications: Acetaminophen (Tylenol Tab*) 650 mg PO Q4H PRN PRN Reason: PAIN OR TEMPERATURE Last Admin: 07/12/17 07:08 Dose: 650 mg Diphenhydramine HCl (Benadryl Iv*) 25 mg IV Q6H PRN PRN Reason: itching Docusate Sodium (Colace Cap*) 100 mg PO BID [facility] BEDS AT [facility] Last Admin: 07/13/17 20:17 Dose: 100 mg Enalapril Maleate (Vasotec Tab*) 5 mg PO DAILY [facility] 234 BEDS AT [facility] Last Admin: 07/13/17 08:52 Dose: 5 mg Lactulose (Lactulose*) 30 ml PO Q6H PRN PRN Reason: constipation Last Admin: 07/12/17 16:24 Dose: 30 ml Magnesium Hydroxide (Milk Of Magnesia Liq*) 30 ml PO Q6H PRN PRN Reason: constipation Last Admin: 07/12/17 16:24 Dose: 30 ml Morphine Sulfate (Morphine Inj (Syringe)*) 2 mg IV Q30M PRN PRN Reason: PAIN - UNCONTROLLED Last Admin: 07/08/17 11:37 Dose: 2 mg Multivitamins (Theragran Tab*) 1 tab PO DAILY [facility] 234 [facility]S [facility] Last Admin: 07/13/17 08:52 Dose: 1 tab Pto:Nf Med* Magnesium Malate 125mg 2 admin PO 2100 [facility] 234 BEDS AT [facility] Last Admin: 07/13/17 20:17 Dose: 2 admin Nystatin (Nystatin Top Powder*) 1 applic TOPICAL TID [facility] 234 BEDS AT [facility] Last Admin: 07/13/17 20:25 Dose: Not Given Ondansetron HCl (Zofran Inj*) 4 mg IV Q6H PRN PRN Reason: nausea Last Admin: 07/13/17 09:07 Dose: 4 mg Oxycodone HCl (Roxycodone Tab*) 10 mg PO Q4H PRN PRN Reason: PAIN - SEVERE Last Admin: 07/13/17 11:24 Dose: 10 mg Oxycodone HCl (Roxycodone Tab*) 5 mg PO Q4H PRN PRN Reason: PAIN - MODERATE Oxycodone/Acetaminophen (Percocet 5/325 Tab*) 1 tab PO Q3H PRN PRN Reason: PAIN - MODERATE Last Admin: 07/13/17 03:29 Dose: 1 tab Oxycodone/Acetaminophen (Percocet 5/325 Tab*) 2 tab PO Q3H PRN PRN Reason: PAIN - MODERATE TO SEVERE Last Admin: 07/13/17 17:55 Dose: 2 tab Pharmacy Profile Note (Scopolomine Patch Remove*) 1 note PATCH OFF .AFTER 72 HOURS [facility]CLUDE 234 BEDS [facility] Last Admin: 07/10/17 19:16 Dose: 1 patch Pharmacy Profile Note (Coumadin Daily Reminder*) 1 note FOLLOW UP 1700 [facility]CLUDE 234 BEDS AT [facility] Last Admin: 07/13/17 17:54 Dose: 1 note Potassium Chloride (Klor Con Er Tab*) 40 meq PO ONCE ONE Stop: 07/13/17 21:02 Prochlorperazine Edisylate (Compazine Inj*) 5 mg IV Q6H PRN PRN Reason: NAUSEA/VOMITING Last Admin: 07/08/17 11:37 Dose: 5 mg Scopolamine (Transderm-Scop 1.5 Mg Patch*) 1 patch TRANSDERM Q72H [facility]S [facility]CLUDE 234 BEDS AT [facility] Last Admin: 07/11/17 10:50 Dose: Not Given Vital Signs 07/12/17 07/12/17 07/13/17 21:58 23:53 00:00 Temperature Pulse Rate Respiratory 18 18 Rate Blood Pressure (mmHg) O2 Sat by Pulse 95 Oximetry 07/13/17 07/13/17 07/13/17 00:03 01:53 03:29 Temperature 98.6 F Pulse Rate 100 Respiratory 18 20 18 Rate Blood Pressure 128/71 (mmHg) O2 Sat by Pulse 95 Oximetry Oxygen Devices in Use Now: Nasal Cannula - at 2.5 L Appearance: NAD Ears/Nose/Mouth/Throat: NL Teeth, Lips, Gums Neck: NL Appearance and Movements; NL JVP Respiratory: Symmetrical Chest Expansion and Respiratory Effort Cardiovascular: NL Sounds; No Murmurs; No JVD Abdominal: NL Sounds; No Tenderness; No Distention Extremities: No Edema Skin: No Rash or Ulcers Neurological: Alert and Oriented x 3 Lines/Tubes/Other Access: Clean, Dry and Intact Peripheral IV Nutrition: Taking PO's Result Diagrams: 07/13/17 04:32 07/13/17 04:32 Microbiology and Other Data: Microbiology 07/07/17 13:22 Anaerobic Culture - Preliminary Wound No Growth Day 1 Gram Stain - Final Wound Culture - Preliminary No Growth Day 1 07/07/17 22:00 Nasal Screen MRSA (PCR)(ALVARO) - Final Nasal Mrsa Negative Assess/Plan/Problems-Billing . Assessment: 77 yo f with h/o HTN and post op PE 8 yrs ago s/p L knee revision on 07/07/17 - Patient Problems (1) Altered mental status Current Visit: Yes Status: Acute Priority: High Code(s): R41.82 - ALTERED MENTAL STATUS, UNSPECIFIED Comment: - Onn 07/10/17 when waking up for dinner noted to have hypoxemia, speech problems and staring to R. - CT brain shows "subacute cerebellar CVA" - INR goal 1 - 2; pharmacy warfarin dosing with INR checks. - EEG read pending ==> no seizure. - telemetry w/o af (2) DVT prophylaxis Current Visit: Yes Status: Acute Priority: High Code(s): [id number] - Comment: as per ortho: Coumadin INR goal 1 - 2 (3) HTN (hypertension) Current Visit: Yes Status: Acute Priority: High Code(s): I10 - ESSENTIAL ( PRIMARY) HYPERTENSION Comment: acceptable values (4) Postoperative anemia due to acute blood loss Current Visit: Yes Status: Acute Priority: High Code(s): D62 - ACUTE POSTHEMORRHAGIC ANEMIA Comment: - s/p 3 U PRBC transfusion, - Hb now stable ~ 9 mg/dL - check daily (5) S/P left knee surgery Current Visit: Yes Status: Acute Priority: High Code(s): Z98.890 - OTHER SPECIFIED POSTPROCEDURAL STATES Comment: doing reasonably well. EBL was 800 ml; s/p transfusion for post-op anemia. (6) Tachycardia Current Visit: Yes Status: Acute Priority: High Code(s): R00.0 - TACHYCARDIA, UNSPECIFIED Comment: May have been related to pain/blood loss. Echo shows good EF and no significant pulm HTN, but hyperdynamic LV (? hypovolemia) EKG showed sinus tachy Improved CTA neg for PE (s/p prednisone prep for shellfish allergy). Status and Disposition: . Inpatient medicine consult, will follow daily
[2017-07-14] MEDS: oxyCODONE/Acetamin 5/325 MG* TAB PO PRN ×2 (03:28→09:59)
[2017-07-14] MEDS: Enalapril TAB* 5 MG PO SCH (10:00)
[2017-07-14] MEDS: Docusate CAP* 100 MG PO SCH (10:00)
[2017-07-14] MEDS: Vitamin THERAPEUTIC TAB PO SCH (10:00)
[2017-07-14] MEDS: Scopolamine 1.5 mg* PATCH TRANSDERM SCH (10:01)
[2017-07-14] MEDS: Nystatin TOP POWDER* 15 GM BTL TOPICAL SCH (10:47)
--- NOTE | 2017-07-14 12:12 | DS ---
AMENDED REPORT NOW INCLUDES COSIGNER DESIGNATION CC: Ashok Reyes * DATE OF ADMISSION: 07/07/2017. DATE OF DISCHARGE: 07/14/2017. ATTENDING PHYSICIAN: Dr. Jes Lees * (dictated by RAMYA Thompson). 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 SURGERY PERFORMED: Revision left total knee arthroplasty, femur and tibia. HOSPITAL COURSE: The patient is a 77-year-old female who fell in late March of this year injuring her left knee. Her initial left total knee arthroplasty was done in 2006 and she developed increasingly severe knee pain after this fall in the spring. She saw Dr. Anderson in the clinic a few weeks ago which x-rays revealed extensive osteolysis around the femoral component and subsidence, malalignment and a periprosthetic tibial fracture. She was offered operative and nonoperative treatment options. She was evaluated by Dr. Lees as well and she assumed care of the patient as she elected to proceed with the revision left total knee arthroplasty. She was cleared medically and was taken to the operating room under the care of Dr. Lees on the date of 07/07/2017. The patient was transfused postoperatively with a total of three units of packed red blood cells and her hematocrit and hemoglobin remained stable throughout the remainder of her hospital stay. She was followed by the Medical team postoperatively and did have some difficulties initially with postop nausea due to narcotic pain medications. She then had an episode on 07/10/2017 when nursing noticed that she was staring to the right and was confused. Luigi Hale NP responded to an urgent evaluation call and she was found to be alert and oriented without facial droop, arm drift or focal deficits at the time of his examination. From that point, work-up including CT of the brain, EKG, head CTA and chest and thorax CTA were all performed. Dr. Servin was also consulted. It was found that she had a right posterior inferior cerebellar artery infarction. Her CT angiogram showed diffuse atherosclerotic disease, but areas of stenosis. Her echocardiogram was negative for an embolic source. She was anticoagulated on Lovenox and Coumadin during her hospital stay. Dr. Servin felt that she would be okay to continue on the Coumadin and he would transition her to Plavix 75 mg in the future once the Coumadin therapy is discontinued for DVT prophylaxis postoperatively. She had no further instances of feeling these symptoms. Occasional dizziness was baseline for her and a Scopolamine patch was also given which had been helpful. Her pain was managed well during her hospital stay and she progressed very nicely with her PT and OT goals. She has difficulty maintaining the toe touch weightbearing status at this time and therefore has been Devorah lifted to her chair for transfers. It was felt that she was medically stable for discharge per Dr. Ramon's last note and she is orthopedically stable as well for continued rehabilitation at [facility]. CONDITION ON DISCHARGE: Vital signs show a temperature of 98.5, pulse 87, respiratory rate 18, O2 sat 94 on room air, blood pressure 119/65. Her hemoglobin is 8.9, hematocrit 26. Her INR is 1.25 today. She is receiving 8 mg of Coumadin prior to her discharge to [facility] today. PLAN: Discharge to [facility]. The patient may shower, but we recommend she not submerge her left knee wound in bathtub water. She should remain toe touch weightbearing and if she cannot maintain this, Devorah lift will need to be continued for transfers. She will continue on the Coumadin as above, given 8 mg of Coumadin today prior to discharge. She will have a repeat INR at the nursing facility on , 07/15/2017 with dosage to follow. She has a follow-up appointment scheduled with Dr. Lees July 21. She will also follow up with Dr. Servin, office to be called by nursing prior to discharge for appointment. If there are any changes in her condition, the office should be contacted prior to her scheduled appointment. It is noted that her left knee incision is healing very nicely. There is no drainage, erythema, or warmth. Her calf is nontender and soft. She is able to do an active straight leg raise against gravity. RAMYA JOHNSON [id number]/[facility] #: [id number] [facility] HOSPITALMichelle
[2017-07-14 13:11] VITALS: BP 118/63
[2017-07-14] MEDS ORDERED: Warfarin TAB(*) 4 MG PO ONE (14:00)
== END 2017-07-14 14:28 | DRG 466 ==
LOC: AA 10:39 → ICU 20:30 → SSU 07-08 15:50 → MEDTELE 07-10 22:51 → UNDODISIN 07-14 14:01
PROVIDERS: ADMIT Orthopaedic Surgery Adult Reconstructive Orthopaedic Surgery; ATTEND Orthopaedic Surgery Adult Reconstructive Orthopaedic Surgery
PROC: 0SPD0JZ Removal of Synthetic Substitute from Left Knee Joint, Open Approach (ICD-10-PCS; 2017-07-07)
PROC: 30233N1 Transfusion of Nonautologous Red Blood Cells into Peripheral Vein, Percutaneous Approach (ICD-10-PCS; 2017-07-07)
PROC: 0SRD0J9 Replacement of Left Knee Joint with Synthetic Substitute, Cemented, Open Approach (ICD-10-PCS; principal; 2017-07-07 12:00)
PROC: 4A00X4Z Measurement of Central Nervous Electrical Activity, External Approach (ICD-10-PCS; 2017-07-12)
DX: S82.202A Unspecified fracture of shaft of left tibia, initial encounter for closed fracture (principal); I63.531 Cerebral infarction due to unspecified occlusion or stenosis of right posterior cerebral artery; I95.9 Hypotension, unspecified; M97.12XA Periprosthetic fracture around internal prosthetic left knee joint, initial encounter; D62 Acute posthemorrhagic anemia; I47.1 Supraventricular tachycardia; W17.89XA Other fall from one level to another, initial encounter; M89.562 Osteolysis, left lower leg; I10 Essential (primary) hypertension; I70.90 Unspecified atherosclerosis; M19.90 Unspecified osteoarthritis, unspecified site; Y79.2 Prosthetic and other implants, materials and accessory orthopedic devices associated with adverse incidents; M21.162 Varus deformity, not elsewhere classified, left knee; R47.9 Unspecified speech disturbances; R09.02 Hypoxemia; R41.82 Altered mental status, unspecified; R26.0 Ataxic gait; T40.605A Adverse effect of unspecified narcotics, initial encounter; R11.0 Nausea; R42 Dizziness and giddiness; Z86.73 Personal history of transient ischemic attack (TIA), and cerebral infarction without residual deficits; Z86.711 Personal history of pulmonary embolism; Z90.710 Acquired absence of both cervix and uterus; Z88.8 Allergy status to other drugs, medicaments and biological substances; Y92.9 Unspecified place or not applicable; Z91.013 Allergy to seafood; Z82.3 Family history of stroke; Z80.0 Family history of malignant neoplasm of digestive organs; Z91.040 Latex allergy status; Z79.01 Long term (current) use of anticoagulants
CPT/HCPCS: 36415; 70450; 70496; 70498; 71275; 76001; 80048; 80061; 81003; 81015; 83036; 83735; 84484; 85014; 85018; 85025; 85027; 85049; 85610; 86850; 86900; 86901; 86922; 87070; 87073; 87205; 87641; 88300; 93005; 93306; 94760; 95816; A9270-GY; C1776; J0690; J0780; J1240; J1650; J2270; J2405; J2704; J3010; J3475; P9040; Q9967

== ENCOUNTER 2018-03-16 09:31 | Day surgery (SDC) | payer MEDICARE ==
[~2018-03-16 09:31] MED LIST changes: -Buffered Lidocaine 0.9% SYRIN* 5 ML/SYR SYRINGE INTRADERM ONE; +Cyclopentolate 1% OPTH.SOL* 2 ML BTL ONE; +Ketorolac 0.5% OPHTH (NF) 0.5 % 5 ML BTL ONE; +Lidocaine 1% MPF* 2 ML VIAL ONE; +Lidocaine 2% EPI 1:200000 MPF*10-20 ML VIAL ONE; +Neomycin/Polymy/Dex OPTH.SUSP* MAXITROL 0.1% 5 ML ONE; +Phenylephrine 2.5% OPTH.SOL* 2 ML BTL ONE; +Povidone Iodine 5% OPTH* 30 ML BTL ONE; +Proparacaine 0.5% OPHTH.SOL* 15 ML BTL ONE; +acetaZOLAMIDE TAB* 250 MG ONE; -ceFAZolin 2 GM PREMIX (*) 50 ML IVPB ONE
[2018-03-16] MEDS ORDERED: fentaNYL* 50 MCG/ML 2 ML VIAL (100 MCG VIAL) ONE (10:48)
[2018-03-16] MEDS ORDERED: Midazolam* 1 MG/ML 5 ML VIAL (5 MG) ONE (10:48)
--- NOTE | 2018-03-16 12:33 | OP ---
DATE OF OPERATION: 03/16/2018. DATE OF : 1940. SURGEON: Ramses Arriaza M.D. PREOPERATIVE DIAGNOSIS: Cataract left eye. POSTOPERATIVE DIAGNOSIS: Cataract left eye. OPERATIVE PROCEDURE: Extracapsular cataract extraction with intraocular lens implant left eye. PROCEDURE: The patient was brought to the operating room after being given 1/2% Alcaine with epineph rine drops in the preoperative area. The eye was prepped and draped in the usual sterile fashion. S terile drape and eyelid speculum were placed. Again, topical 1/2% Alcaine with epinephrine was given . A paracentesis incision was made at the 3 o'clock position with the No.75 blade. Clear cornea inc ision 2.2 x 2.2-mm was created at the 6 o'clock position starting at the anterior limbus using the 2. 2-mm keratome. The anterior chamber was irrigated with 0.4 mL of 1% non-preservative intracameral li docaine and filled with DisCoVisc. A capsulorrhexis was completed using the cystotome and the Utrata forceps. Hydrodissection was performed with balanced salt solution. The lens nucleus was removed wi th the Phacoemulsification handpiece without incident. Cortex was removed with the irrigation-aspira tion handpiece. The capsular bag was re-inflated using DisCoVisc and an [id number] 19.5 implant was inse rted with the shooter. The irrigation-aspiration handpiece was used to remove all residual DisCoVisc . The eye was refilled with balanced salt solution and the wound checked and found to be watertight. Topical Maxitrol drops were given. [id number]/[facility] #: [id number]
[2018-03-22] MEDS ORDERED: Buffered Lidocaine 0.9% SYRIN* 5 ML/SYR SYRINGE INTRADERM ONE (18:59)
[2018-03-23] MEDS ORDERED: Acetaminophen TAB* 325 MG PO PRN (05:00)
[2018-03-23 09:14] VITALS: BP 125/70
== END 2018-03-16 12:21 | disposition home or self-care (01) ==
LOC: OREAST 09:31
PROVIDERS: ATTEND Specialist
DX: H25.812 Combined forms of age-related cataract, left eye (principal); I10 Essential (primary) hypertension; Z86.711 Personal history of pulmonary embolism; Z86.718 Personal history of other venous thrombosis and embolism; I27.20 Pulmonary hypertension, unspecified
CPT/HCPCS: A9270-GY; J2250; J3010; V2632

== ENCOUNTER 2018-03-23 06:40 | Day surgery (SDC) | payer MEDICARE ==
[2018-03-16 12:31] VITALS: BP 108/65
[~2018-03-23 06:40] MED LIST changes: +Acetaminophen TAB* 325 MG PO PRN; +Buffered Lidocaine 0.9% SYRIN* 5 ML/SYR SYRINGE INTRADERM ONE; -Cyclopentolate 1% OPTH.SOL* 2 ML BTL ONE; -Ketorolac 0.5% OPHTH (NF) 0.5 % 5 ML BTL ONE; -Lidocaine 1% MPF* 2 ML VIAL ONE; -Lidocaine 2% EPI 1:200000 MPF*10-20 ML VIAL ONE; -Neomycin/Polymy/Dex OPTH.SUSP* MAXITROL 0.1% 5 ML ONE; -Phenylephrine 2.5% OPTH.SOL* 2 ML BTL ONE; -Povidone Iodine 5% OPTH* 30 ML BTL ONE; -Proparacaine 0.5% OPHTH.SOL* 15 ML BTL ONE; -acetaZOLAMIDE TAB* 250 MG ONE
[2018-03-23] MEDS ORDERED: fentaNYL* 50 MCG/ML 2 ML VIAL (100 MCG VIAL) ONE (08:07)
[2018-03-23] MEDS ORDERED: Midazolam* 1 MG/ML 2 ML VIAL (2 MG) ONE (08:08)
[2018-03-23] MEDS ORDERED: Cyclopentolate 1% OPTH.SOL* 2 ML BTL ONE (12:21)
[2018-03-23] MEDS ORDERED: Ketorolac 0.5% OPHTH (NF) 0.5 % 5 ML BTL ONE (12:21)
[2018-03-23] MEDS ORDERED: Lidocaine 1% MPF* 2 ML VIAL ONE (12:21)
[2018-03-23] MEDS ORDERED: Lidocaine 2% EPI 1:200000 MPF*10-20 ML VIAL ONE (12:21)
[2018-03-23] MEDS ORDERED: Phenylephrine 2.5% OPTH.SOL* 2 ML BTL ONE (12:21)
[2018-03-23] MEDS ORDERED: acetaZOLAMIDE TAB* 250 MG ONE (12:21)
[2018-03-23] MEDS ORDERED: Neomycin/Polymy/Dex OPTH.SUSP* MAXITROL 0.1% 5 ML ONE (12:21)
[2018-03-23] MEDS ORDERED: Proparacaine 0.5% OPHTH.SOL* 15 ML BTL ONE (12:21)
[2018-03-23] MEDS ORDERED: Povidone Iodine 5% OPTH* 30 ML BTL ONE (12:21)
--- NOTE | 2018-03-24 05:34 | OP ---
DATE OF OPERATION: 03/23/18 [facility] DATE OF : 38 SURGEON: Ramses Arriaza MD PREOPERATIVE DIAGNOSIS: Cataract, right eye. POSTOPERATIVE DIAGNOSIS: Cataract, right eye. OPERATIVE PROCEDURE: Extracapsular cataract extraction with intraocular lens implant, right eye. DESCRIPTION OF PROCEDURE: The patient was brought to the operating room after being given 1/2% Alcaine with epinephrine drops in the preoperative area. The eye was prepped and draped in the usual sterile fashion. Sterile drape and eyelid speculum were placed. Again, topical 1/2% Alcaine with epinephrine was given. A paracentesis incision was made at the 9 o'clock position with the No.75 blade. Clear cornea incision 2.2 x 2.2-mm was created at the 12 o'clock position starting at the anterior limbus using the 2.2-mm keratome. The anterior chamber was irrigated with 0.4 mL of 1% non-preservative intracameral lidocaine and filled with DisCoVisc. A capsulorrhexis was completed using the cystotome and the Utrata forceps. Hydrodissection was performed with balanced salt solution. The lens nucleus was removed with the Phacoemulsification handpiece without incident. Cortex was removed with the irrigation-aspiration handpiece. The capsular bag was re-inflated using DisCoVisc and an [id number] 19 implant was inserted with the shooter. The irrigation-aspiration handpiece was used to remove all residual DisCoVisc. The eye was refilled with balanced salt solution and the wound checked and found to be watertight. Topical Maxitrol drops were given. [id number]/[facility] #: [id number] [facility]
== END 2018-03-23 09:09 | disposition home or self-care (01) ==
LOC: OREAST 06:40
PROVIDERS: ATTEND Specialist
DX: H25.813 Combined forms of age-related cataract, bilateral (principal); I10 Essential (primary) hypertension; A69.20 Lyme disease, unspecified; G51.0 Bell's palsy; E78.00 Pure hypercholesterolemia, unspecified; Z23 Encounter for immunization; Z86.711 Personal history of pulmonary embolism; Z86.718 Personal history of other venous thrombosis and embolism; Z96.1 Presence of intraocular lens
CPT/HCPCS: A9270-GY; J2250; J3010; V2632

== ENCOUNTER 2018-10-20 15:48 | Inpatient (IN) | payer MEDICARE ==
--- NOTE | 2018-10-20 16:25 | ED ---
Lower Extremity - HPI Summary HPI Summary: 78 year old female presents with hip and head injury after falling. Patient states she was walking up stairs when she lost balance and fell backwards. She states she landed on her right side and hit her head. She denies LOC, confusion , and dizziness. States she was not light headed or dizzy prior to falling. She states most of her pain is at her right hip. Rates it as a 4/10. Denies radiation. Describes it as sharp. States she is having mild pain in her head but is mostly concerned about her hip. - History of Current Complaint Chief Complaint: EDHipPelvisInjury Stated Complaint: FALL/HIP INJURY Time Seen by Provider: 10/20/18 16:09 Hx Obtained From: Patient Mechanism Of Injury: Fall From A Standing Position Onset of Pain: Immediate Onset/Duration: Hours Severity Initially: Moderate Severity Currently: Moderate Pain Intensity: 3 Pain Scale Used: 0-10 Numeric Timing: Constant Location: Is Discrete @ - righgt hip Character Of Pain: Sharp Associated Signs And Symptoms: Positive: Negative - Risk Factors Gout Risk Factors: Age Over 40, Hypertension, Obesity - Allergies/Home Medications Allergies/Adverse Reactions: Allergies Allergy/AdvReac Type Severity Reaction Status Date / Time adhesive tape Allergy Severe Rash And Verified 10/20/18 15:57 Itching latex Allergy Severe Rash And Verified 10/20/18 15:57 Itching shellfish derived Allergy Intermediate GI Upset, Verified 10/20/18 15:57 VOMITING Home Medications: Home Medications Aspirin EC TAB* [Ecotrin EC Low Dose 81 MG*] 81 mg PO DAILY 10/20/18 [History Confirmed 10/20/18] Enalapril TAB* [Vasotec TAB*] 5 mg PO BID 10/20/18 [History Confirmed 10/20/18] PMH/Surg Hx/FS Hx/Imm Hx Endocrine/Hematology History: Reports: Hx Anticoagulant Therapy - Aspirin Denies: Hx Diabetes, Hx Thyroid Disease Cardiovascular History: Reports: Hx Angina - IN THE PAST, Hx Hypertension, Other Cardiovascular Problems/Disorders - hx afib in , ok now Denies: Hx Pacemaker/ICD Respiratory History: Reports: Hx Pulmonary Embolism - AFTER KNEE SURGERY 2009 Denies: Hx Asthma, Hx Chronic Obstructive Pulmonary Disease (COPD), Other Respiratory Problems/Disorders GI History: Reports: Hx Gastroesophageal Reflux Disease, Hx Irritable Bowel Denies: Other GI Disorders History: Reports: Other Problems/Disorders - stress incontinence Denies: Hx Renal Disease Musculoskeletal History: Reports: Hx Arthritis - KNEES, SHOULDERS, BACK, Hx Bursitis - elbow many years ago, Other Musculoskeletal History - bilat carpal tunnel Denies: Hx Tendonitis Sensory History: Reports: Hx Cataracts - BILAT, Hx Contacts or Glasses - glasses for driving Denies: Hx Hearing Aid Opthamlomology History: Reports: Hx Cataracts - BILAT, Hx Contacts or Glasses - glasses for driving Neurological History: Reports: Hx CVA - "Small Strokes.", Other Neuro Impairments/Disorders - TINNITIS Psychiatric History: Denies: Hx Panic Disorder - Cancer History Hx Chemotherapy: No Hx Radiation Therapy: No - Surgical History Surgery Procedure, Year, and Place: C-sections X2. Appendectomy. Hysterectomy. L TKR. rt wrist surgeries X2. rt fibula surgery with plate. breast biopsy 1971. LEFT ACHILLES TENDON REPAIR. L CTR 03/29 [facility] Hx Anesthesia Reactions: No - Immunization History Date of Tetanus Vaccine: 2009 Infectious Disease History: No Infectious Disease History: Denies: Traveled Outside the [place] in Last 30 Days - Family History Known Family History: Positive: Other - Maternal - stroke - Social History Alcohol Use: Rare Alcohol Amount: 6 Substance Use Type: Reports: None Smoking Status (MU): Never Smoked Tobacco Have You Smoked in the Last Year: No Review of Systems Negative: Fever, Chills Negative: Blurred Vision, Diplopia Negative: Epistaxis, Ear Ache, Nasal Discharge Negative: Chest Pain Negative: Shortness Of Breath Positive: Nausea - while in ambulance, since resolved.. Negative: Abdominal Pain, Vomiting, Diarrhea Genitourinary: Negative Positive: Other - pain @ right hip Negative: Paresthesia, Numbness Psychological: Normal All Other Systems Reviewed And Are Negative: Yes Physical Exam Triage Information Reviewed: Yes Vital Signs On Initial Exam: Initial Vitals Temp Pulse Resp BP Pulse Ox 98.5 F 77 17 132/66 97 10/20/18 15:53 10/20/18 15:53 10/20/18 15:53 10/20/18 15:53 10/20/18 15:53 Vital Signs Reviewed: Yes Appearance: Positive: Well-Appearing Skin: Positive: Warm, Dry, Other - 2cm superficial to right eyebrow, 6cm by 1/ 2cm laceration Head/Face: Positive: Normal Head/Face Inspection, Other - no step off, racoon eyes, vang sign Eyes: Positive: Normal, EOMI, ERIKA, Conjunctiva Clear ENT: Positive: Normal ENT inspection, Pharynx normal, TMs normal Respiratory/Lung Sounds: Positive: Clear to Auscultation, Breath Sounds Present Cardiovascular: Positive: Normal, RRR Musculoskeletal: Positive: Limited @ - right hip, Other - external rotated, good pulses Neurological: Positive: Sensory/Motor Intact, Alert, Oriented to Person Place, Time, CN Intact II-III Psychiatric: Positive: Normal - [place] Coma Scale Best Eye Response: 4 - Spontaneous Best Motor Response: 6 - Obeys Commands Best Verbal Response: 5 - Oriented Coma Scale Total: 15 Procedures - Laceration/Wound Repair 1 Location: face Description: Linear Length, Depth and Shape: 2cm superficial Irrigated w/ Saline (ccs): 300 Closure: Skin Adhesive 2 Location: head Description: Linear Anesthesia: Local, 1.0%, Epi Length, Depth and Shape: 6cm by 1/2cm Irrigated w/ Saline (ccs): 300 Closure: Single Layer Suture Type: Prolene Number of Sutures: 3 Diagnostics - Vital Signs Vital Signs Temp Pulse Resp BP Pulse Ox 10/20/18 15:53 98.5 F 77 17 132/66 97 - Laboratory Result Diagrams: 10/20/18 17:04 10/20/18 17:02 Lab Statement: Any lab studies that have been ordered have been reviewed, and results considered in the medical decision making process. - Radiology hip Radiology Interpretation Completed By: Radiologist Summary of Radiographic Findings: IMPRESSION: Intertrochanteric fracture right hip with medial angulation. chest Radiology Interpretation Completed By: Radiologist Summary of Radiographic Findings: IMPRESSION: #. No evidence for acute intrathoracic disease. - CT neck CT Interpretation Completed By: Radiologist Summary of CT Findings: IMPRESSION: No fracture of the cervical spine is noted. Degenerative disc disease at C5-C6. and C6-C7 with dorsal and ventral osteophyte formation is noted. brain CT Interpretation Completed By: Radiologist Summary of CT Findings: IMPRESSION: #. No CT evidence for traumatic brain injury or acute intracranial process. #. RIGHT temporal scalp laceration and hematoma. Negative for calvarial or skull base. fracture. #. Involutional change and stigmata of chronic small vessel ischemic disease. Old infarct. at the inferior RIGHT cerebellar hemisphere. Lower Extremity Course/Dx - Course Course Of Treatment: 78 year old female presents with right hip pain s/p fall. was mechanical fall. hit right side of head. no LOC. no nausea or vomiting. not on blood thinners. unable to ambulate. no previous dx to the area. on exam normal neuro exam. has tenderness right hip. neurovascular intact. external rotation of right hip. CT brain hematoma. hip xray shows intratronchanteric fracture. spoke with dr farr who see patient. spoke with dr beth who agrees to admit. laceration 6cm by 1/2cm closed with 3 suture performed by Martha CASTILLO. 2cm superficial closed with glue. - Diagnoses Differential Diagnosis/HQI/PQRI: Positive: Contusion, Fracture (Closed), Sprain Provider Diagnoses: Fall, Head injury, Laceration, Intertrochanteric fracture of right hip Discharge - Sign-Out/Discharge Documenting (check all that apply): Patient Departure - Discharge Plan Condition: Stable Disposition: ADMITTED TO [facility] Referrals: Crispin Olivares MD [Primary Care Provider] - - Billing Disposition and Condition Condition: STABLE Disposition: Admitted to [facility]
[2018-10-20] MEDS ORDERED: Morphine VIAL* 4 MG/ML VIAL (1 ml vial) IV ONE (17:03)
[2018-10-20 17:30] LABS: ABS Basophils 0.1 10^3/ul (0-0.2); ABS Eosinophils 0.1 10^3/ul (0-0.6); ABS Lymphocytes 1.1 10^3/ul (1.0-4.8); ABS Monocytes 0.5 10^3/ul (0-0.8); ABS Neutrophils 7.9 10^3/ul (1.5-7.7); ABS Nucleated RBC 0 10^3/ul; Eosinophil % 0.7 %; Hematocrit 42 % (35-47); Hemoglobin 14.3 g/dl (12.0-16.0); Lymphocyte % 11.1 %; Mean Corpuscular HGB Conc 34 g/dl (31-36); Mean Corpuscular Hemoglobin 30 pg (27-31); Mean Corpuscular Volume 89 fL (80-97); Mean Platelet Volume 7.9 fL (7.4-10.4); Nucleated Red Blood Cells % 0; Platelet Count 227 10^3/ul (150-450); Red Blood Count 4.74 10^6/ul (4.00-5.40); Red Cell Distribution Width 13 % (10.5-15); White Blood Count 9.6 10^3/ul (3.5-10.8)
[2018-10-20 17:36] LABS: EGFR Non-African American 86.4 (>60)
[2018-10-20] MEDS ORDERED: Al Hydrox/Mg Hydrox/Simet LIQ* 30 ML UDC PO PRN (17:54)
[2018-10-20 18:33] LABS: Urine Appearance Cloudy; Urine Blood Negative (Negative); Urine Color Yellow; Urine Ketones Trace (Negative); Urine Protein Negative (Negative); Urine Red Blood Cell Trace(0-2/hpf) (Absent); Urine Specific Gravity 1.011 (1.010-1.030); Urine Urobilinogen Negative (Negative); Urine White Blood Cell Trace(0-5/hpf) (Absent)
[2018-10-20] MEDS: Morphine VIAL* 4 MG/ML VIAL (1 ml vial) IV PRN (19:45)
[2018-10-20] MEDS: NS 0.9% 1000 ML* 1,000 ML IV SCH (21:05)
[2018-10-20] MEDS: Docusate CAP* 100 MG PO SCH (21:07)
[2018-10-20] MEDS: Senna TAB PO SCH (21:09)
[2018-10-20] MEDS: Heparin VIAL(*) 5000 UNITS/ML VIAL (FIVE THOUSAND) SUBCUT SCH (21:53)
--- NOTE | 2018-10-20 22:32 | HP ---
CC: Dr. Olivares; Dr. Hernandes; Dr. eLes; Simone Salazar MD * HISTORY AND PHYSICAL: DATE OF ADMISSION: 10/20/18 PRIMARY CARE PROVIDER: Dr. Olivares. CHIEF COMPLAINT: Status post fall, right hip pain. 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 She tipped and fell hitting the right side of her head. She did not lose consciousness. Subsequently, she could not get up and she had to call 911. Upon arrival, she was noted to have right scalp laceration and right hip fracture. Dr. Salazar from Orthopedic Surgery is planning to take the patient to the OR likely tomorrow. The patient is going to be admitted by Medicine. PAST MEDICAL HISTORY: 1. Hypertension. 2. History of ischemic stroke x2. One of her ischemic stroke was postoperative as mentioned above. It was a small cerebellar stroke, postop knee surgery in June of 2017 from which the patient has had problems with mild Ataxia and she is using crutches for walking. A second stroke was almost several years ago from which the patient has no residual deficits, but she had problems of right-sided weakness in the past. 3. History of pulmonary embolism. 4. Osteoarthritis. 5. History of bilateral carpal tunnel release surgeries in the past year. 6. History of right knee arthroplasty and revision in the past. 7. Status post tonsillectomy. 8. Appendectomy. 9. x2. 10. Breast biopsy. 11. Hysterectomy. 12. Left heel spur removal. 13. History of ORIF of the right lower extremity. MEDICATIONS: Currently at home include: 1. Aspirin 81 mg daily. 2. Enalapril 5 mg b.i.d. FAMILY HISTORY: Positive for stroke in both parents and stomach cancer in unknown relatives. SOCIAL HISTORY: The patient lives with her . She is a full code. She denies any tobacco, alcohol, or drug use. She ambulates with her crutches at basement. Her is her surrogate. REVIEW OF SYSTEMS: Please see history of present illness. Positive for chronically unsteady gait. The patient also stated that occasionally, she gets dizzy and she attributed that to side effects. All the remaining 12 systems were reviewed with the patient and were otherwise negative. PHYSICAL EXAMINATION GENERAL: The patient is a pleasant 78-year-old female, who is in no acute distress. Alert, awake, and oriented x3. VITAL SIGNS: Blood pressure of 116/76, heart rate of 56 and regular, respiratory rate 14, oxygen saturation 93% on room air, and temperature of 98.5 HEENT: Head with rather large subcutaneous hematoma in the right parietal area of approximately 10 cm in diameter and adjacent to that a small area of abrasion. Eyes: Extraocular movements intact. Pupils are equal, round, and reactive to light and accommodation. Oropharynx clear. Mucosa moist. NECK: Supple. No JVD. No bruits bilaterally. RESPIRATORY: Clear to auscultation bilaterally. CARDIOVASCULAR: Regular rate and rhythm with 1/6 systolic ejection murmur noted on auscultation of the right upper sternal border. ABDOMEN: Soft and nontender. Bowel sounds present in all 4 quadrants. EXTREMITIES: There is no edema. The right lower extremity is externally rotated and shortened. NEUROLOGIC: Cranial nerves II through XII grossly intact. Motor strength is 5/ 5 bilaterally. SKIN: Abrasion noted on the parietal and forehead area as mentioned above. The patient also has a small abrasion covered with eschar on the dorsum of the right hand. Otherwise, no other lesions noted. PSYCHIATRIC: Pleasant and cooperative evaluation. Oriented x3 with no evidence of anxiety or depression. LABORATORY DATA: White blood cell count 9.6, hemoglobin of 14.3, hematocrit of 42, and platelets 227. Sodium of 139, potassium of 3.7, chloride 105, carbon dioxide 26, BUN 12, and creatinine of 0.66. Liver function test unremarkable. Lactic acid of 1.5. The patient's EKG showed sinus bradycardia with a heart rate of 62 beats per minute with evidence of sinus arrhythmia and motion artifact. There were no ST changes. Pelvis CT obtained on 10/20/18. Impression: "Mildly angulated and comminuted right intertrochanteric femur fracture. Subcutaneous contusion of the right lateral upper thigh. Other chronic findings as above." Cervical spine CT: "No fracture of the cervical spine is noted. Degenerative disk disease of C5-C6 and C6-C7 with dorsal and ventral osteophyte formation noted." Brain CT. Impression: "No evidence of traumatic brain injury or acute intracranial process. Right temporal scalp laceration and hematoma. Negative for calvarial and skull base fracture. Evolutional change and stigmata of chronic small vessel ischemic change. Old infarct of the inferior right cerebellar hemisphere." ASSESSMENT AND PLAN: 1. The patient is a 78-year-old female with history of osteoarthritis and multiple joint surgeries in the past who after her recent knee revision a year ago developed cerebellar stroke. Currently, she is status post a traumatic right hip fracture. She is planned for surgery with Dr. Salazar tomorrow. Her EKG is unremarkable. Her laboratory data is also unremarkable. The patient has not had any problems with exercise intolerance, although she does ambulate with crutches due to her problems with chronic ataxia. She has not reported any recent chest pain or shortness of breath. She is an acceptable candidate for the anticipated procedure. 2. In regards to the patient's hypertension, for the time being we will hold the patient's enalapril perioperatively. 3. In regards to the patient's history of cerebrovascular accident. Her aspirin and further anticoagulation is going to be held. Firstly due to that that the patient is planned for surgery tomorrow. Second reason is that the patient has rather large scalp hematoma. Sequential compression devices are going to be provided. 4. The patient's code status is full and her surrogate is her . TIME SPENT: Approximately 65 minutes were spent on the admission of this patient. More than half that time was spent [id number] with the patient during the interview and physical exam. [id number]/[facility] #: [id number] MTDD
[2018-10-20] MEDS: Nystatin TOP POWDER* 15 GM BTL TOPICAL SCH (23:45)
[2018-10-21] MEDS: Morphine VIAL* 4 MG/ML VIAL (1 ml vial) IV PRN ×6 (02:39→13:42)
[2018-10-21] MEDS ORDERED: ceFAZolin 1 GM ADVAN(*) 1 GM in NS 0.9% 50 ML* 50 ML IVPB SCH (03:30)
[2018-10-21] MEDS: Heparin VIAL(*) 5000 UNITS/ML VIAL (FIVE THOUSAND) SUBCUT SCH ×2 (05:18→14:51)
[2018-10-21 05:58] LABS: ABS Basophils 0.1 10^3/ul (0-0.2); ABS Eosinophils 0.1 10^3/ul (0-0.6); ABS Lymphocytes 1.1 10^3/ul (1.0-4.8); ABS Monocytes 0.6 10^3/ul (0-0.8); ABS Neutrophils 6.9 10^3/ul (1.5-7.7); ABS Nucleated RBC 0 10^3/ul; Eosinophil % 1.6 %; Hematocrit 38 % (35-47); Hemoglobin 12.8 g/dl (12.0-16.0); Lymphocyte % 12.1 %; Mean Corpuscular HGB Conc 34 g/dl (31-36); Mean Corpuscular Hemoglobin 30 pg (27-31); Mean Corpuscular Volume 89 fL (80-97); Mean Platelet Volume 7.8 fL (7.4-10.4); Nucleated Red Blood Cells % 0.2; Platelet Count 199 10^3/ul (150-450); Red Blood Count 4.29 10^6/ul (4.00-5.40); Red Cell Distribution Width 13 % (10.5-15); White Blood Count 8.7 10^3/ul (3.5-10.8)
[2018-10-21 06:17] LABS: EGFR Non-African American 94.6 (>60)
[2018-10-21] MEDS: Senna TAB PO SCH ×2 (08:32→23:19)
[2018-10-21] MEDS: Docusate CAP* 100 MG PO SCH ×2 (08:32→21:00)
--- NOTE | 2018-10-21 10:32 | PN ---
Progress Note - Progress Note Date of Service: 10/21/18 Note: Pt seen and examined. Right hip basicervical fracture after ground level fall with head lac. Optimized for surgery. History of mini strokes. Ambulates with walker or crutches. Temp Pulse Resp BP Pulse Ox 99.0 F 84 16 134/66 97 10/21/18 07:20 10/21/18 07:20 10/21/18 08:22 10/21/18 07:20 10/21/18 07:20 NAD. AAOx3. Pleasant mood, normal affect. R hip with deformity. Skin intact. SILT grossly about 1st dws, medial, lateral, dorsal, and plantar foot. 2+ PT pulse. able to DF/PF foot and flex/ext toes. A/P R hip IT fx will need IMN and optimized per medicine NPO for OR today. Pt agreeable with this plan
[2018-10-21] MEDS: Nystatin TOP POWDER* 15 GM BTL TOPICAL SCH ×3 (10:53→21:00)
[2018-10-21] MEDS: NS 0.9% 1000 ML* 1,000 ML IV SCH ×2 (10:54→23:20)
[2018-10-21] MEDS ORDERED: Famotidine IV* 10 MG/ML 2 ML (20 mg) IV ONE (12:02)
--- NOTE | 2018-10-21 13:05 | PN ---
Subjective Date of Service: 10/21/18 Interval History: pt feels well. R hip pain is controlled with meds. NPO for OR today Objective Active Medications: Acetaminophen (Tylenol Tab*) 650 mg PO Q4H PRN PRN Reason: FEVER/PAIN Al Hydrox/Mg Hydrox/Simethicone (Maalox Plus*) 30 ml PO Q6H PRN PRN Reason: INDIGESTION Docusate Sodium (Colace Cap*) 100 mg PO BID [facility] Last Admin: 10/21/18 08:32 Dose: Not Given Heparin Sodium (Porcine) (Heparin Vial(*)) 5,000 units SUBCUT Q8HR [facility] Last Admin: 10/21/18 05:18 Dose: 5,000 units Sodium Chloride (Ns 0.9% 1000 Ml*) 1,000 mls @ 75 mls/hr IV PER RATE [facility] Last Admin: 10/21/18 10:54 Dose: 75 mls/hr Morphine Sulfate (Morphine Vial*) 2 mg IV Q2H PRN PRN Reason: PAIN Last Admin: 10/21/18 10:53 Dose: 2 mg Nystatin (Nystatin Top Powder*) 1 applic TOPICAL TID [facility] Last Admin: 10/21/18 10:53 Dose: 1 applic Senna (Senokot Tab*) 1 tab PO BID [facility] Last Admin: 10/21/18 08:32 Dose: Not Given Vital Signs - 8 hr 10/21/18 10/21/18 10/21/18 06:14 07:00 07:20 Temperature 99.0 F Pulse Rate 84 Respiratory 16 16 18 Rate Blood Pressure 134/66 (mmHg) O2 Sat by Pulse 97 Oximetry 10/21/18 10/21/18 08:22 10:53 Temperature Pulse Rate Respiratory 16 16 Rate Blood Pressure (mmHg) O2 Sat by Pulse Oximetry Oxygen Devices in Use Now: Nasal Cannula Appearance: 78 yo F in NAD, aAOx3 Eyes: No Scleral Icterus, PERRLA Ears/Nose/Mouth/Throat: NL Teeth, Lips, Gums, Mucous Membranes Moist Neck: NL Appearance and Movements; NL JVP Respiratory: Symmetrical Chest Expansion and Respiratory Effort, Clear to Auscultation Cardiovascular: RRR, - - 1/6 SYLVESTER Abdominal: NL Sounds; No Tenderness; No Distention, No Hepatosplenomegaly Lymphatic: No Cervical Adenopathy Extremities: No Edema, No Clubbing, Cyanosis Skin: No Nodules or Sclerosis, - - R scalp hematoma, small abrasion and sutured laceration covered with eschar at 5 cm in length-hematoma is greatly improved since admisison Neurological: Alert and Oriented x 3, NL Muscle Strength and Tone Result Diagrams: 10/21/18 05:37 10/21/18 05:37 Assess/Plan/Problems-Billing Assessment: 78 yo F with h/o 2x ischemic CVA( the last one cerebellar-post op knee surgery 06/2017) presents after a mechanical fall with R hip fx. - Patient Problems (1) Closed right hip fracture Current Visit: Yes Comment: to OR today as per Dr. Blackwell Pt was medically opimized for the anticipated surgery (2) HTN (hypertension) Comment: acceptable values holding enalapril preop (3) DVT prophylaxis Comment: SCD's, anticoagulants held preop Status and Disposition: inpatient
[2018-10-21] MEDS ORDERED: ceFAZolin 2 GM PREMIX in ORs 2 GM/50 ML BAG IVPB ONE (14:54)
[2018-10-21 14:59] LABS: INR 1.08 (0.77-1.02)
[2018-10-21] MEDS ORDERED: fentaNYL* 50 MCG/ML 2 ML VIAL (100 MCG VIAL) ONE (16:22)
[2018-10-21] MEDS ORDERED: Midazolam* 1 MG/ML 5 ML VIAL (5 MG) ONE (16:22)
[2018-10-21] MEDS ORDERED: KETAMINE HCL* 50 MG/ML 10 ML VIAL ONE (16:22)
[2018-10-21] MEDS ORDERED: Bupivacaine 0.5% SDV PF* 30ML VIAL ONE ×2 (16:24→20:37)
--- NOTE | 2018-10-21 18:26 | PN ---
Progress Note - Progress Note Date of Service: 10/21/18 SOAP: Subjective: 78 yo W with chronic B knee pain with multiple arthroplasty surgeries L knee, p/ w s/p mechanical fall on 10/20/18. X-rays and CT show displaced IT fx R hip. Optimized by medicine. Objective: RLE: - ext rot, swelling, NVID Selected Entries 10/21/18 11:28 Temperature 98.9 F Pulse Rate 93 Respiratory 16 Rate Blood Pressure 129/68 (mmHg) O2 Sat by Pulse 96 Oximetry Laboratory Tests 10/20/18 10/21/18 10/21/18 18:19 05:37 14:43 Hct 38 APTT 29.5 Urine Nitrate Positive A Ur Leukocyte Esterase Negative Urine WBC (Auto) Trace(0-5/hpf) Urine Bacteria 1+ A Hyaline Casts Present A Assessment: HD 2 R hip IT fx Plan: - to OR for ORIF with IMN R hip IT fx - Optimized by Hospitalist - Will recommend treat UTI
[2018-10-21] MEDS ORDERED: Bupivacaine 0.5% W/EPI SDV* 30 ML VIAL ONE ×2 (18:30→18:40)
[2018-10-21] MEDS ORDERED: Morphine VIAL* 4 MG/ML VIAL (1 ml vial) IV PRN (20:04)
[2018-10-21] MEDS ORDERED: fentaNYL* 50 MCG/ML 2 ML VIAL (100 MCG VIAL) IV PRN (20:04)
[2018-10-21] MEDS ORDERED: Naloxone* 0.4 MG/ML 1 ML VIAL IV PRN (20:04)
[2018-10-21] MEDS ORDERED: DiMENhydriNATE IV* 50 MG/ML VIAL IV PUSH PRN (20:04)
[2018-10-21] MEDS ORDERED: PROCHLORPERAZINE INJ 5 MG/ML 2 ML VIAL IV PRN (20:04)
[2018-10-21] MEDS ORDERED: oxyCODONE/Acetamin 5/325 MG* TAB PO PRN (20:04)
[2018-10-21] MEDS ORDERED: Phenylephrine INJ* 10 MG/ML 1 ML VIAL (10 MG) ONE (20:37)
[2018-10-21] MEDS ORDERED: Propofol* 10 MG/ML 20 ML BTL ONE (20:37)
[2018-10-21] MEDS ORDERED: PROCHLORPERAZINE INJ 5 MG/ML 2 ML VIAL ONE (21:42)
[2018-10-21] MEDS ORDERED: Morphine VIAL* 4 MG/ML VIAL (1 ml vial) ONE (21:57)
[2018-10-22] MEDS ORDERED: PROCHLORPERAZINE INJ 5 MG/ML 2 ML VIAL IV PRN (00:09)
[2018-10-22] MEDS: Morphine VIAL* 4 MG/ML VIAL (1 ml vial) IV PRN ×3 (00:20→07:33)
[2018-10-22] MEDS: Heparin VIAL(*) 5000 UNITS/ML VIAL (FIVE THOUSAND) SUBCUT SCH (00:22)
[2018-10-22] MEDS: ceFAZolin 1 GM ADVAN(*) 1 GM in NS 0.9% 50 ML* 50 ML IVPB SCH ×3 (03:30→19:31)
[2018-10-22] MEDS: oxyCODONE/Acetamin 5/325 MG* TAB PO PRN ×4 (09:11→22:33)
[2018-10-22] MEDS: Senna TAB PO SCH ×2 (09:12→21:31)
[2018-10-22] MEDS: Enoxaparin(*) 40 MG/0.4 ML SYR SUBCUT SCH (09:12)
[2018-10-22] MEDS: Docusate CAP* 100 MG PO SCH ×2 (09:12→21:30)
[2018-10-22] MEDS: Nystatin TOP POWDER* 15 GM BTL TOPICAL SCH ×3 (09:18→21:33)
[2018-10-22] MEDS: NS 0.9% 1000 ML* 1,000 ML IV SCH (10:06)
--- NOTE | 2018-10-22 11:31 | PN ---
Progress Note - Progress Note Date of Service: 10/22/18 SOAP: Subjective: Pt seen at bedside. Minimal complaint of pain. No new complaints. Denies CP, SOB. Vital Signs: Temp Pulse Resp BP Pulse Ox 98.0 F 103 18 128/64 93 10/22/18 07:33 12 07:33 10/22/18 09:11 10/22/18 07:33 10/22/18 07:33 Laboratory Last Values WBC 8.7 10^3/ul (3.5-10.8) 10/21/18 05:37 RBC 4.29 10^6/ul (4.00-5.40) 10/21/18 05:37 Hgb 12.8 g/dl (12.0-16.0) 10/21/18 05:37 Hct 38 % (35-47) 10/21/18 05:37 MCV 89 fL (80-97) 10/21/18 05:37 MCH 30 pg (27-31) 10/21/18 05:37 MCHC 34 g/dl (31-36) 10/21/18 05:37 RDW 13 % (10.5-15) 10/21/18 05:37 Plt Count 199 10^3/ul (150-450) 10/21/18 05:37 MPV 7.8 fL (7.4-10.4) 10/21/18 05:37 Neut % (Auto) 79.3 % 10/21/18 05:37 Lymph % (Auto) 12.1 % 10/21/18 05:37 [place] % (Auto) 6.4 % 10/21/18 05:37 Eos % (Auto) 1.6 % 10/21/18 05:37 Baso % (Auto) 0.6 % 10/21/18 05:37 Absolute Neuts (auto) 6.9 10^3/ul (1.5-7.7) 10/21/18 05:37 Absolute Lymphs (auto) 1.1 10^3/ul (1.0-4.8) 10/21/18 05:37 Absolute Monos (auto) 0.6 10^3/ul (0-0.8) 10/21/18 05:37 Absolute Eos (auto) 0.1 10^3/ul (0-0.6) 10/21/18 05:37 Absolute Basos (auto) 0.1 10^3/ul (0-0.2) 10/21/18 05:37 Absolute Nucleated RBC 0 10^3/ul 10/21/18 05:37 Nucleated RBC % 0.2 10/21/18 05:37 INR (Anticoag Therapy) 1.08 (0.77-1.02) H 10/21/18 14:43 APTT 29.5 seconds (26.0-36.3) 10/21/18 14:43 Sodium 140 mmol/L (135-145) 10/21/18 05:37 Potassium 3.7 mmol/L (3.5-5.0) 10/21/18 05:37 Chloride 109 mmol/L (101-111) 10/21/18 05:37 Carbon Dioxide 27 mmol/L (22-32) 10/21/18 05:37 Anion Gap 4 mmol/L (2-11) 10/21/18 05:37 BUN 15 mg/dL (6-24) 10/21/18 05:37 Creatinine 0.61 mg/dL (0.51-0.95) 10/21/18 05:37 Est GFR ( Amer) 114.5 (>60) 10/21/18 05:37 Est GFR (Non-Af Amer) 94.6 (>60) 10/21/18 05:37 BUN/Creatinine Ratio 24.6 (8-20) H 10/21/18 05:37 Glucose 126 mg/dL (70-100) H 10/21/18 05:37 Lactic Acid 1.5 mmol/L (0.5-2.0) 10/20/18 17:02 Calcium 8.7 mg/dL (8.6-10.3) 10/21/18 05:37 Total Bilirubin 0.70 mg/dL (0.2-1.0) 10/20/18 17:02 AST 25 U/L (13-39) 10/20/18 17:02 ALT 20 U/L (7-52) 10/20/18 17:02 Alkaline Phosphatase 79 U/L (34-104) 10/20/18 17:02 Troponin I 0.00 ng/mL (<0.04) 10/20/18 17:02 Total Protein 6.4 g/dL (6.4-8.9) 10/20/18 17:02 Albumin 3.8 g/dL (3.2-5.2) 10/20/18 17:02 Globulin 2.6 g/dL (2-4) 10/20/18 17:02 Albumin/Globulin Ratio 1.5 (1-3) 10/20/18 17:02 Urine Color Yellow 10/20/18 18: Urine Appearance Cloudy 10/20/18 18: Urine pH 9.0 (5-9) 10/20/18 18:19 Ur Specific [place] 1.011 (1.010-1.030) 10/20/18 18:19 Urine Protein Negative (Negative) 10/20/18 18: Urine Ketones Trace (Negative) A 10/20/18 18: Urine Blood Negative (Negative) 10/20/18 18: Urine Nitrate Positive (Negative) A 10/20/18 18: Urine Bilirubin Negative (Negative) 10/20/18 18: Urine Urobilinogen Negative (Negative) 10/20/18 18:19 Ur Leukocyte Esterase Negative (Negative) 10/20/18 18:19 Urine WBC (Auto) Trace(0-5/hpf) (Absent) 10/20/18 18:19 Urine RBC (Auto) Trace(0-2/hpf) (Absent) 10/20/18 18:19 Urine Bacteria 1+ (Absent) A 10/20/18 18: Hyaline Casts Present (Absent) A 10/20/18 18: Urine Glucose Negative (Negative) 10/20/18 18: Urine Ascorbic Acid * (Negative) A 10/20/18 18: Blood Type O Positive 10/20/18 17:04 Antibody Screen Negative 10/20/18 17:04 Objective: Dressing C/D/I. Calves soft, nontender. No edema. Sensation intact to light touch distally. 2+ DP pulses Assessment: 78 yo female s/p ORIF right hip fracture POD #1 Plan: OOB PT/OT WBAT Pain control DVT prophylaxis - Lovenox 40mg D/C Planning
--- NOTE | 2018-10-22 17:49 | PN ---
Subjective Date of Service: 10/22/18 Interval History: Pt worked with PT, recommending skilled PT at this time. Pt was in [facility] for 2 months previously, did not like the food. Has many steps at house: [address] + 1+1 to door. 4 home-made wooden half steps from bedroom to kitchen. Had been navigating for about a year and were not anchored down until this most recent fall when she must have been off to side and they tipped over. Since been anchored. 6-8 steps to living room. Denies SOB, chest pain, abdominal pain. left hip pain controlled. Objective Active Medications: Acetaminophen (Tylenol Tab*) 650 mg PO Q4H PRN PRN Reason: FEVER/PAIN Al Hydrox/Mg Hydrox/Simethicone (Maalox Plus*) 30 ml PO Q6H PRN PRN Reason: INDIGESTION Ciprofloxacin (Cipro Tab*) 500 mg PO Q12HR [facility] Stop: 10/27/18 09:01 Docusate Sodium (Colace Cap*) 100 mg PO BID [facility] Last Admin: 10/22/18 09:12 Dose: 100 mg Enoxaparin Sodium (Lovenox(*)) 40 mg SUBCUT Q24H [facility] Last Admin: 10/22/18 09:12 Dose: 40 mg Sodium Chloride (Ns 0.9% 1000 Ml*) 1,000 mls @ 75 mls/hr IV PER RATE [facility] Last Admin: 10/22/18 10:06 Dose: 75 mls/hr Cefazolin Sodium 1 gm/ Sodium (Chloride) 50 mls @ 200 mls/hr IVPB 0330,1130, 1930 [facility] Stop: 10/23/18 19:44 Last Admin: 10/22/18 12:40 Dose: 200 mls/hr Morphine Sulfate (Morphine Vial*) 2 mg IV Q2H PRN PRN Reason: PAIN Last Admin: 10/22/18 07:33 Dose: 2 mg Nystatin (Nystatin Top Powder*) 1 applic TOPICAL TID [facility] Last Admin: 10/22/18 13:20 Dose: 1 applic Oxycodone/Acetaminophen (Percocet 5/325 Tab*) 1 tab PO Q4H PRN PRN Reason: PAIN Oxycodone/Acetaminophen (Percocet 5/325 Tab*) 2 tab PO Q4H PRN PRN Reason: PAIN Last Admin: 10/22/18 13:17 Dose: 2 tab Prochlorperazine Edisylate (Compazine Inj*) 5 mg IV Q6H PRN PRN Reason: NAUSEA/VOMITING Senna (Senokot Tab*) 1 tab PO BID [facility] Last Admin: 10/22/18 09:12 Dose: 1 tab Vital Signs - 8 hr 10/22/18 10/22/18 10/22/18 10:10 11:37 12:43 Temperature 97.6 F Pulse Rate 110 86 Respiratory 18 18 Rate Blood Pressure 104/53 114/49 (mmHg) O2 Sat by Pulse 96 Oximetry 10/22/18 10/22/18 10/22/18 13:17 15:18 15:20 Temperature 97.9 F Pulse Rate 95 Respiratory 16 16 18 Rate Blood Pressure 109/50 (mmHg) O2 Sat by Pulse 89 Oximetry Oxygen Devices in Use Now: Nasal Cannula Appearance: NAD, initially asleep and needed loud voice to arouse. Eyes: No Scleral Icterus, PERRLA Ears/Nose/Mouth/Throat: NL Teeth, Lips, Gums, Mucous Membranes Moist Neck: NL Appearance and Movements; NL JVP, Trachea Midline Respiratory: Symmetrical Chest Expansion and Respiratory Effort, Clear to Auscultation Cardiovascular: RRR, - - systolic ejection murmur loudest LUSB/RUSB. 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 Uses crutches at baseline. s/p ORIF /intermedullary nail 10/21. Likely will need SNF. - Patient Problems (1) Closed right hip fracture Current Visit: Yes Status: Acute Code(s): S72.001A - FRACTURE OF UNSP PART OF NECK OF RIGHT FEMUR, INIT SNOMED Code(s): 111665764 Comment: s/p ORIF/IMN with Dr. Pacheco on 10/21. POD #1 PT, rec for skilled PT. Uses crutches at baseline and has multiple steps in home. pain control lovenox. recheck CBC, BMP in AM EBL 300 (2) DVT prophylaxis Current Visit: No Status: Acute Priority: High Code(s): DGW6477 - SNOMED Code(s): 349194972 Comment: lovenox per Ortho. (3) HTN (hypertension) Current Visit: No Status: Acute Priority: High Code(s): I10 - ESSENTIAL ( PRIMARY) HYPERTENSION SNOMED Code(s): 48474810 Comment: continue to hold enalopril, SBP 110 (4) E. coli UTI (urinary tract infection) Current Visit: Yes Status: Acute Code(s): N39.0 - URINARY TRACT INFECTION, SITE NOT SPECIFIED; B96.20 - UNSP ESCHERICHIA COLI THE CAUSE OF DISEASES CLASSD [facility] SNOMED Code(s): 111150759 Comment: UA: + nitrates, 1+ bacteria. Ecoli >100K, pansensitive except for ampcillin. Including cefazolin. states chronic frequency, last UTI 10-15 years ago. getting cefazolin for 48 hours with surgery, now starting on 3 days cipro 500mg BID started by Ortho. Status and Disposition: medicine inpatient, may need SNF
[2018-10-22] MEDS: Ciprofloxacin TAB* 500 MG PO SCH (21:31)
[2018-10-23] MEDS: NS 0.9% 1000 ML* 1,000 ML IV SCH (00:08)
[2018-10-23] MEDS: ceFAZolin 1 GM ADVAN(*) 1 GM in NS 0.9% 50 ML* 50 ML IVPB SCH ×3 (03:41→20:35)
[2018-10-23] MEDS: oxyCODONE/Acetamin 5/325 MG* TAB PO PRN ×5 (03:47→22:48)
[2018-10-23 05:56] LABS: ABS Basophils 0 10^3/ul (0-0.2); ABS Eosinophils 0.4 10^3/ul (0-0.6); ABS Lymphocytes 1.1 10^3/ul (1.0-4.8); ABS Monocytes 0.8 10^3/ul (0-0.8); ABS Neutrophils 5.3 10^3/ul (1.5-7.7); ABS Nucleated RBC 0 10^3/ul; Eosinophil % 5.3 %; Hematocrit 25 % (35-47); Hemoglobin 8.8 g/dl (12.0-16.0); Lymphocyte % 13.9 %; Mean Corpuscular HGB Conc 35 g/dl (31-36); Mean Corpuscular Hemoglobin 31 pg (27-31); Mean Corpuscular Volume 89 fL (80-97); Mean Platelet Volume 7.2 fL (7.4-10.4); Nucleated Red Blood Cells % 0; Platelet Count 137 10^3/ul (150-450); Red Blood Count 2.84 10^6/ul (4.00-5.40); Red Cell Distribution Width 13 % (10.5-15); White Blood Count 7.6 10^3/ul (3.5-10.8)
[2018-10-23 06:13] LABS: EGFR Non-African American 116.3 (>60)
[2018-10-23] MEDS: Ciprofloxacin TAB* 500 MG PO SCH ×2 (08:30→20:43)
[2018-10-23] MEDS: Potassium Chloride LIQUID* 20 MEQ PACKET PO SCH ×2 (08:31→11:40)
[2018-10-23] MEDS: Senna TAB PO SCH ×2 (08:31→20:35)
[2018-10-23] MEDS: Acetaminophen TAB* 325 MG PO PRN ×2 (08:32→14:36)
[2018-10-23] MEDS: Docusate CAP* 100 MG PO SCH ×2 (08:32→20:35)
[2018-10-23] MEDS: Nystatin TOP POWDER* 15 GM BTL TOPICAL SCH ×3 (08:34→23:08)
[2018-10-23] MEDS: Enoxaparin(*) 40 MG/0.4 ML SYR SUBCUT SCH (08:35)
[2018-10-23] MEDS ORDERED: Magnesium Hydroxide LIQ* 30 ML UDC PO PRN (11:37)
--- NOTE | 2018-10-23 12:19 | PN ---
Progress Note - Progress Note Date of Service: 10/23/18 SOAP: Subjective: Pt seen sitting up in chair. No c/o pain. States feeling good today. Denies CP, SOB, F/C. Vital Signs: Temp Pulse Resp BP Pulse Ox 98.5 F 98 16 104/60 96 10/23/18 11:16 10/23/18 11:16 10/23/18 11:16 10/23/18 11:16 10/23/18 11:16 Laboratory Last Values WBC 7.6 10^3/ul (3.5-10.8) 10/23/18 05:38 RBC 2.84 10^6/ul (4.00-5.40) L 10/23/18 05:38 Hgb 8.8 g/dl (12.0-16.0) L 10/23/18 05:38 Hct 25 % (35-47) L 10/23/18 05:38 MCV 89 fL (80-97) 10/23/18 05:38 MCH 31 pg (27-31) 10/23/18 05:38 MCHC 35 g/dl (31-36) 10/23/18 05:38 RDW 13 % (10.5-15) 10/23/18 05:38 Plt Count 137 10^3/ul (150-450) L 10/23/18 05:38 MPV 7.2 fL (7.4-10.4) L 10/23/18 05:38 Neut % (Auto) 70.0 % 10/23/18 05:38 Lymph % (Auto) 13.9 % 10/23/18 05:38 [place] % (Auto) 10.2 % 10/23/18 05:38 Eos % (Auto) 5.3 % 10/23/18 05:38 Baso % (Auto) 0.6 % 10/23/18 05:38 Absolute Neuts (auto) 5.3 10^3/ul (1.5-7.7) 10/23/18 05:38 Absolute Lymphs (auto) 1.1 10^3/ul (1.0-4.8) 10/23/18 05:38 Absolute Monos (auto) 0.8 10^3/ul (0-0.8) 10/23/18 05:38 Absolute Eos (auto) 0.4 10^3/ul (0-0.6) 10/23/18 05:38 Absolute Basos (auto) 0 10^3/ul (0-0.2) 10/23/18 05:38 Absolute Nucleated RBC 0 10^3/ul 10/23/18 05:38 Nucleated RBC % 0 10/23/18 05:38 INR (Anticoag Therapy) 1.08 (0.77-1.02) H 10/21/18 14:43 APTT 29.5 seconds (26.0-36.3) 10/21/18 14:43 Sodium 139 mmol/L (135-145) 10/23/18 05:38 Potassium 3.4 mmol/L (3.5-5.0) L 10/23/18 05:38 Chloride 110 mmol/L (101-111) 10/23/18 05:38 Carbon Dioxide 26 mmol/L (22-32) 10/23/18 05:38 Anion Gap 3 mmol/L (2-11) 10/23/18 05:38 BUN 12 mg/dL (6-24) 10/23/18 05:38 Creatinine 0.51 mg/dL (0.51-0.95) 10/23/18 05:38 Est GFR ( Amer) 140.8 (>60) 10/23/18 05:38 Est GFR (Non-Af Amer) 116.3 (>60) 10/23/18 05:38 BUN/Creatinine Ratio 23.5 (8-20) H 10/23/18 05:38 Glucose 115 mg/dL (70-100) H 10/23/18 05:38 Lactic Acid 1.5 mmol/L (0.5-2.0) 10/20/18 17:02 Calcium 8.1 mg/dL (8.6-10.3) L 10/23/18 05:38 Total Bilirubin 0.70 mg/dL (0.2-1.0) 10/20/18 17:02 AST 25 U/L (13-39) 10/20/18 17:02 ALT 20 U/L (7-52) 10/20/18 17:02 Alkaline Phosphatase 79 U/L (34-104) 10/20/18 17:02 Troponin I 0.00 ng/mL (<0.04) 10/20/18 17:02 Total Protein 6.4 g/dL (6.4-8.9) 10/20/18 17:02 Albumin 3.8 g/dL (3.2-5.2) 10/20/18 17:02 Globulin 2.6 g/dL (2-4) 10/20/18 17:02 Albumin/Globulin Ratio 1.5 (1-3) 10/20/18 17:02 Urine Color Yellow 10/20/18 18: Urine Appearance Cloudy 10/20/18 18:19 Urine pH 9.0 (5-9) 10/20/18 18:19 Ur Specific [place] 1.011 (1.010-1.030) 10/20/18 18:19 Urine Protein Negative (Negative) 10/20/18 18: Urine Ketones Trace (Negative) A 10/20/18 18:19 Urine Blood Negative (Negative) 10/20/18 18:19 Urine Nitrate Positive (Negative) A 10/20/18 18: Urine Bilirubin Negative (Negative) 10/20/18 18:19 Urine Urobilinogen Negative (Negative) 10/20/18 18:19 Ur Leukocyte Esterase Negative (Negative) 10/20/18 18:19 Urine WBC (Auto) Trace(0-5/hpf) (Absent) 10/20/18 18:19 Urine RBC (Auto) Trace(0-2/hpf) (Absent) 10/20/18 18:19 Urine Bacteria 1+ (Absent) A 10/20/18 18: Hyaline Casts Present (Absent) A 10/20/18 18: Urine Glucose Negative (Negative) 10/20/18 18:19 Urine Ascorbic Acid * (Negative) A 10/20/18 18:19 Blood Type O Positive 10/20/18 17:04 Antibody Screen Negative 10/20/18 17:04 Objective: A&Ox3, NAD. Dressing C/D/I. Calves soft, nontender. No edema, Sensation intact to light touch distally. 2+ DP Pulses. Assessment: 78 yo female s/p ORIF right hip fx Plan: OOB PT/OT WBAT Pain Control D/C Forde DVT prophylaxis - Lovenox D/C planning - Follow up with Dr. Pacheco 14 days postop
--- NOTE | 2018-10-23 16:11 | PN ---
Subjective Date of Service: 10/23/18 Interval History: Hgb 8.8/25 from 12.8 presurgery worked with PT, not clear what current dispo rec is. RN continues to think will need SNF. Took 20minutes to go from bed to chair. Forde out, urinated. slept well. pain controlled. Objective Active Medications: Acetaminophen (Tylenol Tab*) 650 mg PO Q4H PRN PRN Reason: FEVER/PAIN Last Admin: 10/23/18 14:36 Dose: 650 mg Al Hydrox/Mg Hydrox/Simethicone (Maalox Plus*) 30 ml PO Q6H PRN PRN Reason: INDIGESTION Ciprofloxacin (Cipro Tab*) 500 mg PO Q12HR [facility] Stop: 10/27/18 09:01 Last Admin: 10/23/18 08:30 Dose: 500 mg Docusate Sodium (Colace Cap*) 100 mg PO BID [facility] Last Admin: 10/23/18 08:32 Dose: 100 mg Enoxaparin Sodium (Lovenox(*)) 40 mg SUBCUT Q24H [facility] Last Admin: 10/23/18 08:35 Dose: 40 mg Sodium Chloride (Ns 0.9% 1000 Ml*) 1,000 mls @ 75 mls/hr IV PER RATE [facility] Last Admin: 10/23/18 00:08 Dose: 75 mls/hr Cefazolin Sodium 1 gm/ Sodium (Chloride) 50 mls @ 200 mls/hr IVPB 0330,1130, 1930 [facility] Stop: 10/23/18 19:44 Last Admin: 10/23/18 11:38 Dose: 200 mls/hr Magnesium Hydroxide (Milk Of Magnesia Liq*) 30 ml PO Q4H PRN PRN Reason: CONSTIPATION Last Admin: 10/23/18 12:37 Dose: 30 ml Morphine Sulfate (Morphine Vial*) 2 mg IV Q2H PRN PRN Reason: PAIN Last Admin: 10/22/18 07:33 Dose: 2 mg Nystatin (Nystatin Top Powder*) 1 applic TOPICAL TID [facility] Last Admin: 10/23/18 15:27 Dose: Not Given Oxycodone/Acetaminophen (Percocet 5/325 Tab*) 1 tab PO Q4H PRN PRN Reason: PAIN Last Admin: 10/23/18 12:36 Dose: 1 tab Oxycodone/Acetaminophen (Percocet 5/325 Tab*) 2 tab PO Q4H PRN PRN Reason: PAIN Last Admin: 10/22/18 22:33 Dose: 2 tab Prochlorperazine Edisylate (Compazine Inj*) 5 mg IV Q6H PRN PRN Reason: NAUSEA/VOMITING Senna (Senokot Tab*) 1 tab PO BID [facility] Last Admin: 10/23/18 08:31 Dose: 1 tab Vital Signs - 8 hr 10/23/18 10/23/18 10/23/18 08:32 10:44 11:16 Temperature 98.5 F Pulse Rate 98 Respiratory 18 18 16 Rate Blood Pressure 104/60 (mmHg) O2 Sat by Pulse 96 Oximetry 10/23/18 10/23/18 12:36 15:10 Temperature 98.5 F Pulse Rate 93 Respiratory 16 Rate Blood Pressure 93/53 (mmHg) O2 Sat by Pulse 92 Oximetry Oxygen Devices in Use Now: Nasal Cannula Appearance: NAD, sitting in chair. Ears/Nose/Mouth/Throat: NL Teeth, Lips, Gums Neck: NL Appearance and Movements; NL JVP Respiratory: Symmetrical Chest Expansion and Respiratory Effort, Clear to Auscultation Cardiovascular: - - SYLVESTER LUSB, RRR Extremities: No Edema, No Clubbing, Cyanosis, - - right hip with ice pack Skin: No Rash or Ulcers Neurological: Alert and Oriented x 3, NL Sensation, - - PERRIN Nutrition: Taking PO's Result Diagrams: 10/23/18 05:38 10/23/18 05:38 Additional Lab and Data: Laboratory Results - last 24 hr 10/23/18 10/23/18 05:38 05:38 WBC 7.6 RBC 2.84 L Hgb 8.8 L Hct 25 L MCV 89 MCH 31 MCHC 35 RDW 13 Plt Count 137 L MPV 7.2 L Neut % (Auto) 70.0 Lymph % (Auto) 13.9 [place] % (Auto) 10.2 Eos % (Auto) 5.3 Baso % (Auto) 0.6 Absolute Neuts (auto) 5.3 Absolute Lymphs (auto) 1.1 Absolute Monos (auto) 0.8 Absolute Eos (auto) 0.4 Absolute Basos (auto) 0 Absolute Nucleated RBC 0 Nucleated RBC % 0 Sodium 139 Potassium 3.4 L Chloride 110 Carbon Dioxide 26 Anion Gap 3 BUN 12 Creatinine 0.51 Est GFR ( Amer) 140.8 Est GFR (Non-Af Amer) 116.3 BUN/Creatinine Ratio 23.5 H Glucose 115 H Calcium 8.1 L Microbiology and Other Data: Microbiology 10/20/18 18:19 Urine Urine Culture - Final Escherichia Coli Assess/Plan/Problems-Billing Assessment: 78 yo F 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 Uses crutches at baseline. s/p ORIF /intermedullary nail 10/21. Likely will need SNF. - Patient Problems (1) Closed right hip fracture Current Visit: Yes Status: Acute Code(s): S72.001A - FRACTURE OF UNSP PART OF NECK OF RIGHT FEMUR, INIT SNOMED Code(s): 812471271 Comment: s/p ORIF/IMN with Dr. Pacheco on 10/21. POD #2 PT, rec for skilled PT. Uses crutches at baseline and has multiple steps in home. pain control lovenox. CBC, BMP daily EBL 300, but 4pt hgb on recheck. no e/o hematoma on physical (2) DVT prophylaxis Current Visit: No Status: Acute Priority: High Code(s): SIX1513 - SNOMED Code(s): 379758795 Comment: lovenox per Ortho. (3) HTN (hypertension) Current Visit: No Status: Acute Priority: High Code(s): I10 - ESSENTIAL ( PRIMARY) HYPERTENSION SNOMED Code(s): 51885063 Comment: continue to hold enalopril, SBP 90-110. drop in hgb (4) E. coli UTI (urinary tract infection) Current Visit: Yes Status: Acute Code(s): N39.0 - URINARY TRACT INFECTION, SITE NOT SPECIFIED; B96.20 - UNSP ESCHERICHIA COLI THE CAUSE OF DISEASES CLASSD [facility] SNOMED Code(s): 434100397 Comment: UA: + nitrates, 1+ bacteria. Ecoli >100K, pansensitive except for ampcillin. Including cefazolin. states chronic frequency, last UTI 10-15 years ago. getting cefazolin for 48 hours with surgery, now on 3 days cipro 500mg BID started by Ortho. (5) Anemia Current Visit: Yes Status: Acute Code(s): D64.9 - ANEMIA, UNSPECIFIED SNOMED Code(s): 681178369 Comment: suspect acute blood loss from surgery. cbc daily. Status and Disposition: medicine inpatient, likely will need SNF
[2018-10-24] MEDS: oxyCODONE/Acetamin 5/325 MG* TAB PO PRN ×5 (03:52→21:38)
[2018-10-24 06:17] LABS: ABS Basophils 0 10^3/ul (0-0.2); ABS Eosinophils 0.5 10^3/ul (0-0.6); ABS Lymphocytes 1.3 10^3/ul (1.0-4.8); ABS Monocytes 0.8 10^3/ul (0-0.8); ABS Neutrophils 5.1 10^3/ul (1.5-7.7); ABS Nucleated RBC 0 10^3/ul; Hematocrit 25 % (35-47); Hemoglobin 8.5 g/dl (12.0-16.0); Lymphocyte % 16.8 %; Mean Corpuscular HGB Conc 35 g/dl (31-36); Mean Corpuscular Hemoglobin 31 pg (27-31); Mean Corpuscular Volume 89 fL (80-97); Mean Platelet Volume 7.6 fL (7.4-10.4); Nucleated Red Blood Cells % 0; Platelet Count 162 10^3/ul (150-450); Red Blood Count 2.75 10^6/ul (4.00-5.40); Red Cell Distribution Width 13 % (10.5-15); White Blood Count 7.6 10^3/ul (3.5-10.8)
[2018-10-24 06:42] LABS: EGFR Non-African American 111.3 (>60)
--- NOTE | 2018-10-24 07:59 | OP ---
DATE OF OPERATION: 10/21/18 - ROOM #347 DATE OF : 38 SURGEON: Javier Pacheco MD SUPERVISING EDITOR TRAILER: None. ANESTHESIOLOGIST: Dr. Rj Pderoza. ANESTHESIA: Spinal anesthesia. PRE-OP DIAGNOSIS: Right hip intertrochanteric fracture. POST-OP DIAGNOSIS: Right hip intertrochanteric fracture. OPERATIVE PROCEDURE: Open reduction and internal fixation right hip intertrochanteric fracture with short intramedullary nail. IV FLUIDS: See anesthesia note. ANTIBIOTICS: Ancef 2 g IV. SKIN TO SKIN TIME: Approximately 75 minutes. The timer was not stopped by me, so this is an approximation. RADIATION EXPOSURE: Large C-arm utilized for 72 seconds for an exposure of 0.495 mGy meter squared. SPECIMEN: None. IMPLANTS: Synthes TFN short nail with lag and locking screws. ESTIMATED BLOOD LOSS: Minimal. COMPLICATIONS: None. 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 The patient [place] [facility] [place] seen by the hospitalist service and optimized for surgery. She was seen by my colleague, Dr. Blackwell. X-rays and CT were consistent with a displaced comminuted right hip intertrochanteric fracture. Dr. Blackwell asked me to perform surgery. I noted as part of the preoperative workup that a urinalysis demonstrated a positive urinary tract infection. Discussed with the patient and her risks and potential complications of surgery. DESCRIPTION OF PROCEDURE: The patient signed a written consent in preoperative holding. Operative extremity was marked in preoperative holding. The patient was taken back to the operating room. The patient had placed a spinal or epidural anesthesia by Dr. Pedroza. The patient was then sedated. The patient was transferred to the fracture table. A fracture table was set up appropriately, peroneal post, shower curtain rods, etc. A mini time-out was performed. A large C-arm was brought in. The right lower extremity was reduced with traction and some rotation. Large C-arm demonstrated adequate reduction. I prepped and draped the right hip area using a shower curtain dressing. A formal surgical time-out performed. A small stab incision in the skin was made 8 cm proximal to the greater trochanter in line with the femoral shaft. A pin was placed into the greater trochanter. Adequate placement was made. Skin incision was distalized and deepened through the hip abductor fascia I was able to palpate the greater trochanter. I improved the placement of my pin. I then used a proximal femur reamer and guide to ream the proximal femur. I placed a short nail, made stab incisions and used the TFN Synthesis guide to place a lag screw through the femoral head and neck. I changed the position of that screw at first, as I did not like the position of its laterally and the angle of it, so I turned it 180 degrees after reassembling the assembly system, guide. I then made another stab incision and placed my locking screw distally. Irrigation of all wounds. Closure of the hip abductor fascia with a running stitch using Vicryl 0 suture. While doing that closure, my needle broke. I had to use some dissection and the C- arm to locate the broken off needle. I was able to find this needle. It was broken off into 1 piece and visibly and with C-arm imaging I was able to confirm removal of the entire needle. This took some time to find. Irrigation again to that wound. Closure of the hip abductor fascia with a running stitch using Vicryl 0 suture. Closure of all 3 incisions and their subcutaneous layer with buried simple stitches using Vicryl 2-0 suture. Closure of the skin with kaylan. Xeroform, 4x4's, ABD's, foam tape. The patient was taken off the table and returned to a bed. DISPOSITION: The patient was admitted to my service postoperatively. She was made weightbearing as tolerated, right lower extremity with plans for physical therapy, pain control, Ancef q.8 hours x48 hours postoperatively. As well, I added ciprofloxacin x5 days for treatment of urinary tract infection. Pain control. DVT prophylaxis with Lovenox 40 mg subcutaneously x4 weeks postoperatively. The patient will follow up with me in approximately 14 days postoperative for removal of kaylan and wound check and x-rays. Dressing change on postoperative day#3. [id number]/[facility] #: [id number] RAULITO
[2018-10-24] MEDS: Docusate CAP* 100 MG PO SCH ×2 (08:11→21:42)
[2018-10-24] MEDS: Enoxaparin(*) 40 MG/0.4 ML SYR SUBCUT SCH (08:11)
[2018-10-24] MEDS: Ciprofloxacin TAB* 500 MG PO SCH ×2 (08:11→21:42)
[2018-10-24] MEDS: Senna TAB PO SCH ×2 (08:11→21:42)
[2018-10-24] MEDS: Nystatin TOP POWDER* 15 GM BTL TOPICAL SCH ×2 (11:50→17:31)
--- NOTE | 2018-10-24 12:09 | PN ---
Progress Note - Progress Note Date of Service: 10/24/18 SOAP: Subjective: POD #3 Right hip ORIF. Doing well, pain controlled. Able to move bed to chair with walker and some assistance. Per PT, good candidate for PMRU. Denies CP/SOB , f/c, calf pain. Objective: Vitals: Temp Pulse Resp BP Pulse Ox 97.5 F 95 18 103/51 96 10/24/18 07:32 10/24/18 07:32 10/24/18 11:51 10/24/18 07:32 10/24/18 07:32 Gen: A&Ox3, NAD at rest sitting in chair Right hip: Incision C/D/I, small blister to posterior leg from tape but intact. Thigh soft, NT. +f/e at ankle and MTPs. N/V intact Labs: Laboratory Results - last 24 hr /18 10/24/18 05:32 05:32 WBC 7.6 RBC 2.75 L Hgb 8.5 L Hct 25 L MCV 89 MCH 31 MCHC 35 RDW 13 Plt Count 162 MPV 7.6 Neut % (Auto) 66.6 Lymph % (Auto) 16.8 [place] % (Auto) 10.1 Eos % (Auto) 6.0 Baso % (Auto) 0.5 Absolute Neuts (auto) 5.1 Absolute Lymphs (auto) 1.3 Absolute Monos (auto) 0.8 Absolute Eos (auto) 0.5 Absolute Basos (auto) 0 Absolute Nucleated RBC 0 Nucleated RBC % 0 Sodium 141 Potassium 4.0 Chloride 109 Carbon Dioxide 28 Anion Gap 4 BUN 10 Creatinine 0.53 Est GFR ( Amer) 134.6 Est GFR (Non-Af Amer) 111.3 BUN/Creatinine Ratio 18.9 Glucose 101 H Calcium 8.2 L Assessment: POD #3 Right hip ORIF Plan: PMRU referral Cont PT/OT, WBAT RLE Lovenox for DVT ppx
--- NOTE | 2018-10-24 16:41 | PN ---
Subjective Date of Service: 10/24/18 Interval History: Ms. Terry is feeling better today. She reports that her pain is well controlled with percocet. She still prefers morphine as she feels it is faster and more effective, but is content using percocet as she knows she will need to use this at home. She is agreeable to going to rehab at [facility]. She has been up ambulating to the bathroom. Denies CP, SOB, N/V/D, dizziness. Family History: Unchanged from Admission Social History: Unchanged from Admission Past Medical History: Unchanged from Admission Objective Active Medications: Acetaminophen (Tylenol Tab*) 650 mg PO Q4H PRN FEVER/PAIN Al Hydrox/Mg Hydrox/Simethicone (Maalox Plus*) 30 ml PO Q6H PRN INDIGESTION Ciprofloxacin (Cipro Tab*) 500 mg PO Q12HR [facility] Docusate Sodium (Colace Cap*) 100 mg PO BID [facility] Enoxaparin Sodium (Lovenox(*)) 40 mg SUBCUT Q24H [facility] Sodium Chloride (Ns 0.9% 1000 Ml*) 1,000 mls @ 75 mls/hr IV PER RATE [facility] Magnesium Hydroxide (Milk Of Magnesia Liq*) 30 ml PO Q4H PRN CONSTIPATION Morphine Sulfate (Morphine Vial*) 2 mg IV Q2H PRN PAIN Nystatin (Nystatin Top Powder*) 1 applic TOPICAL TID [facility] Oxycodone/Acetaminophen (Percocet 5/325 Tab*) 1 tab PO Q4H PRN PAIN Oxycodone/Acetaminophen (Percocet 5/325 Tab*) 2 tab PO Q4H PRN PAIN Prochlorperazine Edisylate (Compazine Inj*) 5 mg IV Q6H PRN NAUSEA/VOMITING Senna (Senokot Tab*) 1 tab PO BID [facility] Vital Signs - 8 hr 10/24/18 10/24/18 10/24/18 11:43 11:51 12:41 Temperature 97.5 F Pulse Rate 94 Respiratory 16 18 18 Rate Blood Pressure 104/51 (mmHg) O2 Sat by Pulse 98 Oximetry Oxygen Devices in Use Now: None Appearance: Elderly female sitting in chair in NAD Eyes: No Scleral Icterus Ears/Nose/Mouth/Throat: Mucous Membranes Moist Neck: NL Appearance and Movements; NL JVP, Trachea Midline Respiratory: Symmetrical Chest Expansion and Respiratory Effort, Clear to Auscultation Cardiovascular: NL Sounds; No Murmurs; No JVD, RRR Abdominal: NL Sounds; No Tenderness; No Distention Extremities: No Edema Skin: No Rash or Ulcers, - - Right hip surgical dressing Neurological: Alert and Oriented x 3, NL Sensation Lines/Tubes/Other Access: Clean, Dry and Intact Peripheral IV Nutrition: Taking PO's Result Diagrams: 10/24/18 05:32 10/24/18 05:32 Assess/Plan/Problems-Billing Assessment: Ms. 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 - Patient Problems (1) Closed right hip fracture Current Visit: Yes Status: Acute Code(s): S72.001A - FRACTURE OF UNSP PART OF NECK OF RIGHT FEMUR, INIT SNOMED Code(s): 927411415 Comment: - S/p ORIF with Dr. Pacheco POD #3 - Uses crutches at baseline and has multiple steps in home - PT, rec for skilled PT - Management per ortho - Pain control (2) E. coli UTI (urinary tract infection) Current Visit: Yes Status: Acute Code(s): N39.0 - URINARY TRACT INFECTION, SITE NOT SPECIFIED; B96.20 - UNSP ESCHERICHIA COLI THE CAUSE OF DISEASES CLASSD [facility] SNOMED Code(s): 479321897 Comment: - No urinary symptoms - E. coli >100K, pansensitive except for ampcillin - Continue cipro 500mg BID started by Ortho (3) HTN (hypertension) Current Visit: No Status: Acute Priority: High Code(s): I10 - ESSENTIAL ( PRIMARY) HYPERTENSION SNOMED Code(s): 36037106 Comment: - Normotensive - Hold enalapril (4) Anemia Current Visit: Yes Status: Acute Code(s): D64.9 - ANEMIA, UNSPECIFIED SNOMED Code(s): 037411365 Comment: - Stable, Hgb 8 - Suspect acute blood loss from surgery (5) DVT prophylaxis Current Visit: No Status: Acute Priority: High Code(s): RTI3205 - SNOMED Code(s): 081208385 Comment: - Lovenox per Ortho (6) Full code status Current Visit: Yes Status: Acute Code(s): Z78.9 - OTHER SPECIFIED HEALTH STATUS SNOMED Code(s): 089317358 Status and Disposition: Inpatient. Hopeful d/t to [id number]. Attending: Brian Falk
[2018-10-25] MEDS: Nystatin TOP POWDER* 15 GM BTL TOPICAL SCH ×4 (00:30→21:19)
[2018-10-25] MEDS: oxyCODONE/Acetamin 5/325 MG* TAB PO PRN ×5 (02:27→20:33)
[2018-10-25 07:35] LABS: EGFR Non-African American 113.8 (>60)
[2018-10-25] MEDS: Enoxaparin(*) 40 MG/0.4 ML SYR SUBCUT SCH (09:02)
[2018-10-25] MEDS: Ciprofloxacin TAB* 500 MG PO SCH ×2 (09:03→20:33)
[2018-10-25] MEDS: Docusate CAP* 100 MG PO SCH ×2 (09:03→20:33)
[2018-10-25] MEDS: Senna TAB PO SCH ×2 (09:03→20:33)
--- NOTE | 2018-10-25 11:56 | PN ---
Progress Note - Progress Note Date of Service: 10/25/18 SOAP: Subjective: []Patient was seen and examined OOB in chair. She feels quite well without complaint of right hip pain. Denies CP, SOB, dizziness, nausea. Objective: []General: Well appearing, NAD RLE: Dressing changed, incision CDI without surrounding erythema, dressing with mild serous drainage from proximal incision. Thigh is soft, DF/PF intact, DP2+, sensation intact to light touch distally. Calves supple and nontender Assessment: [] POD #4 Right hip ORIF Plan: GLENNY placement pending Cont PT/OT, WBAT RLE Lovenox for DVT ppx Daily dry sterile dressing changes Vital Signs Temp 98.5 F 10/25/18 11:17 Pulse 96 10/25/18 11:17 Resp 16 10/25/18 11:36 BP 106/61 10/25/18 11:17 Pulse Ox 95 10/25/18 11:17 Intake & Output 10/24/18 10/25/18 10/25/18 18:59 06:59 18:59 Intake Total 120 900 Output Total 500 650 Balance -380 250 Intake: Oral 120 900 Output: Urine 500 650 Other: Estimated Void Medium # Voids 1 Laboratory Last Values WBC 7.6 10^3/ul (3.5-10.8) 10/24/18 05:32 RBC 2.75 10^6/ul (4.00-5.40) L 10/24/18 05:32 Hgb 8.5 g/dl (12.0-16.0) L 10/24/18 05:32 Hct 25 % (35-47) L 10/24/18 05:32 MCV 89 fL (80-97) 10/24/18 05:32 MCH 31 pg (27-31) 10/24/18 05:32 MCHC 35 g/dl (31-36) 10/24/18 05:32 RDW 13 % (10.5-15) 10/24/18 05:32 Plt Count 162 10^3/ul (150-450) 10/24/18 05:32 MPV 7.6 fL (7.4-10.4) 10/24/18 05:32 Neut % (Auto) 66.6 % 10/24/18 05:32 Lymph % (Auto) 16.8 % 10/24/18 05:32 [place] % (Auto) 10.1 % 10/24/18 05:32 Eos % (Auto) 6.0 % 10/24/18 05:32 Baso % (Auto) 0.5 % 10/24/18 05:32 Absolute Neuts (auto) 5.1 10^3/ul (1.5-7.7) 10/24/18 05:32 Absolute Lymphs (auto) 1.3 10^3/ul (1.0-4.8) 10/24/18 05:32 Absolute Monos (auto) 0.8 10^3/ul (0-0.8) 10/24/18 05:32 Absolute Eos (auto) 0.5 10^3/ul (0-0.6) 10/24/18 05:32 Absolute Basos (auto) 0 10^3/ul (0-0.2) 10/24/18 05:32 Absolute Nucleated RBC 0 10^3/ul 10/24/18 05:32 Nucleated RBC % 0 10/24/18 05:32 INR (Anticoag Therapy) 1.08 (0.77-1.02) H 10/21/18 14:43 APTT 29.5 seconds (26.0-36.3) 10/21/18 14:43 Sodium 139 mmol/L (135-145) 10/25/18 05:09 Potassium 3.8 mmol/L (3.5-5.0) 10/25/18 05:09 Chloride 108 mmol/L (101-111) 10/25/18 05:09 Carbon Dioxide 28 mmol/L (22-32) 10/25/18 05:09 Anion Gap 3 mmol/L (2-11) 10/25/18 05:09 BUN 11 mg/dL (6-24) 10/25/18 05:09 Creatinine 0.52 mg/dL (0.51-0.95) 10/25/18 05:09 Est GFR ( Amer) 137.6 (>60) 10/25/18 05:09 Est GFR (Non-Af Amer) 113.8 (>60) 10/25/18 05:09 BUN/Creatinine Ratio 21.2 (8-20) H 10/25/18 05:09 Glucose 102 mg/dL (70-100) H 10/25/18 05:09 Lactic Acid 1.5 mmol/L (0.5-2.0) 10/20/18 17:02 Calcium 8.4 mg/dL (8.6-10.3) L 10/25/18 05:09 Total Bilirubin 0.70 mg/dL (0.2-1.0) 10/20/18 17:02 AST 25 U/L (13-39) 10/20/18 17:02 ALT 20 U/L (7-52) 10/20/18 17:02 Alkaline Phosphatase 79 U/L (34-104) 10/20/18 17:02 Troponin I 0.00 ng/mL (<0.04) 10/20/18 17:02 Total Protein 6.4 g/dL (6.4-8.9) 10/20/18 17:02 Albumin 3.8 g/dL (3.2-5.2) 10/20/18 17:02 Globulin 2.6 g/dL (2-4) 10/20/18 17:02 Albumin/Globulin Ratio 1.5 (1-3) 10/20/18 17:02 Urine Color Yellow 10/20/18 18:19 Urine Appearance Cloudy 10/20/18 18:19 Urine pH 9.0 (5-9) 10/20/18 18:19 Ur Specific [place] 1.011 (1.010-1.030) 10/20/18 18:19 Urine Protein Negative (Negative) 10/20/18 18:19 Urine Ketones Trace (Negative) A 10/20/18 18: Urine Blood Negative (Negative) 10/20/18 18: Urine Nitrate Positive (Negative) A 10/20/18 18: Urine Bilirubin Negative (Negative) 10/20/18 18:19 Urine Urobilinogen Negative (Negative) 10/20/18 18:19 Ur Leukocyte Esterase Negative (Negative) 10/20/18 18:19 Urine WBC (Auto) Trace(0-5/hpf) (Absent) 10/20/18 18:19 Urine RBC (Auto) Trace(0-2/hpf) (Absent) 10/20/18 18:19 Urine Bacteria 1+ (Absent) A 10/20/18 18:19 Hyaline Casts Present (Absent) A 10/20/18 18:19 Urine Glucose Negative (Negative) 10/20/18 18:19 Urine Ascorbic Acid * (Negative) A 10/20/18 18:19 Blood Type O Positive 10/20/18 17:04 Antibody Screen Negative 10/20/18 17:04
--- NOTE | 2018-10-25 13:44 | PN ---
Subjective Date of Service: 10/25/18 Interval History: Ms. Terry is feeling fine today. She reports having a difficult time getting back into bed last night. Pain is well controlled with current medications. She denies CP, SOB, N/V/D, dizziness. Declining PMRU d/t cost. She would like to return home tomorrow so that her is able to set things up for her today. Family History: Unchanged from Admission Social History: Unchanged from Admission Past Medical History: Unchanged from Admission Objective Active Medications: Acetaminophen (Tylenol Tab*) 650 mg PO Q4H PRN FEVER/PAIN Al Hydrox/Mg Hydrox/Simethicone (Maalox Plus*) 30 ml PO Q6H PRN INDIGESTION Ciprofloxacin (Cipro Tab*) 500 mg PO Q12HR CHAVEZ Docusate Sodium (Colace Cap*) 100 mg PO BID CHAVEZ Enoxaparin Sodium (Lovenox(*)) 40 mg SUBCUT Q24H CHAVEZ Sodium Chloride (Ns 0.9% 1000 Ml*) 1,000 mls @ 75 mls/hr IV PER RATE CHAVEZ Cefazolin Sodium 1 gm/ Sodium (Chloride) 50 mls @ 200 mls/hr IVPB Q8H CHAVEZ Magnesium Hydroxide (Milk Of Magnesia Liq*) 30 ml PO Q4H PRN CONSTIPATION Morphine Sulfate (Morphine Vial*) 2 mg IV Q2H PRN PAIN Nystatin (Nystatin Top Powder*) 1 applic TOPICAL TID CHAVEZ Oxycodone/Acetaminophen (Percocet 5/325 Tab*) 1 tab PO Q4H PRN PAIN Oxycodone/Acetaminophen (Percocet 5/325 Tab*) 2 tab PO Q4H PRN PAIN Prochlorperazine Edisylate (Compazine Inj*) 5 mg IV Q6H PRN NAUSEA/VOMITING Senna (Senokot Tab*) 1 tab PO BID CHAVEZ Vital Signs - 8 hr 10/25/18 10/25/18 10/25/18 07:16 07:46 08:00 Temperature 98.6 F Pulse Rate 87 Respiratory 16 16 16 Rate Blood Pressure 106/54 (mmHg) O2 Sat by Pulse 92 Oximetry 10/25/18 10/25/18 11:17 11:36 Temperature 98.5 F Pulse Rate 96 Respiratory 16 16 Rate Blood Pressure 106/61 (mmHg) O2 Sat by Pulse 95 Oximetry Oxygen Devices in Use Now: None Appearance: Elderly female sitting in chair in NAD Eyes: No Scleral Icterus Ears/Nose/Mouth/Throat: Mucous Membranes Moist Neck: NL Appearance and Movements; NL JVP, Trachea Midline Respiratory: Symmetrical Chest Expansion and Respiratory Effort, Clear to Auscultation Cardiovascular: NL Sounds; No Murmurs; No JVD, RRR Abdominal: NL Sounds; No Tenderness; No Distention Extremities: No Edema Skin: No Rash or Ulcers, - - Surgical dressing to right hip Neurological: Alert and Oriented x 3, NL Sensation Lines/Tubes/Other Access: Clean, Dry and Intact Peripheral IV Nutrition: Taking PO's Result Diagrams: 10/24/18 05:32 10/25/18 05:09 Assess/Plan/Problems-Billing Assessment: Ms. 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 - Patient Problems (1) Closed right hip fracture Current Visit: Yes Status: Acute Code(s): S72.001A - FRACTURE OF UNSP PART OF NECK OF RIGHT FEMUR, INIT SNOMED Code(s): 987119507 Comment: - S/p ORIF with Dr. Pacheco POD #4 - Uses crutches at baseline and has multiple steps in home - Management per ortho - PT, Pain control (2) E. coli UTI (urinary tract infection) Current Visit: Yes Status: Acute Code(s): N39.0 - URINARY TRACT INFECTION, SITE NOT SPECIFIED; B96.20 - UNSP ESCHERICHIA COLI THE CAUSE OF DISEASES [facility] SNOMED Code(s): 911460010 Comment: - No urinary symptoms - E. coli >100K, pansensitive except for ampcillin - Continue cipro 500mg BID started by Ortho (3) HTN (hypertension) Current Visit: No Status: Acute Priority: High Code(s): I10 - ESSENTIAL ( PRIMARY) HYPERTENSION SNOMED Code(s): 56989065 Comment: - Normotensive - Hold enalapril (4) Anemia Current Visit: Yes Status: Acute Code(s): D64.9 - ANEMIA, UNSPECIFIED SNOMED Code(s): 852132146 Comment: - Stable, Hgb 8 - 2/2 acute blood loss from surgery (5) DVT prophylaxis Current Visit: No Status: Acute Priority: High Code(s): PNS0662 - SNOMED Code(s): 534384174 Comment: - Lovenox per Ortho (6) Full code status Current Visit: Yes Status: Acute Code(s): Z78.9 - OTHER SPECIFIED HEALTH STATUS SNOMED Code(s): 051381238 Status and Disposition: Inpatient. D/c home tomorrow. Attending: Brian Falk
[2018-10-25] MEDS: ceFAZolin 1 GM ADVAN(*) 1 GM in NS 0.9% 50 ML* 50 ML IVPB SCH ×2 (14:44→22:18)
[2018-10-26] MEDS: oxyCODONE/Acetamin 5/325 MG* TAB PO PRN ×4 (00:32→13:27)
[2018-10-26] MEDS: Magnesium Oxide TAB* 400 MG PO SCH ×2 (02:03→09:14)
[2018-10-26] MEDS: ceFAZolin 1 GM ADVAN(*) 1 GM in NS 0.9% 50 ML* 50 ML IVPB SCH (05:23)
[2018-10-26] MEDS: Ciprofloxacin TAB* 500 MG PO SCH (09:13)
[2018-10-26] MEDS: Senna TAB PO SCH (09:14)
[2018-10-26] MEDS: Nystatin TOP POWDER* 15 GM BTL TOPICAL SCH ×2 (09:14→13:48)
[2018-10-26] MEDS: Docusate CAP* 100 MG PO SCH (09:14)
[2018-10-26] MEDS: Enoxaparin(*) 40 MG/0.4 ML SYR SUBCUT SCH (09:15)
--- NOTE | 2018-10-26 11:14 | PN ---
Progress Note - Progress Note Date of Service: 10/26/18 SOAP: Subjective: []Patient was seen and examined at bedside today. She is feeling well without right hip pain at rest. Denies CP, SOB, nausea, feeling of fever or chills. Objective: []General: Well appearing, NAD RLE: Dressing changed, incision CDI without surrounding erythema. No warmth, tenderness, fluctuance or induration surrounding the incision. Dressing with mild dry serous drainage from proximal incision similar to yesterday with no active drainage, no purulence. Thigh is soft, DF/PF intact, DP2+, sensation intact to light touch distally. Calves supple and nontender Assessment: [] POD #5 Right hip ORIF Plan: Okay from ortho standpoint to MD to [facility] when medically ready Cont PT/OT, WBAT RLE Lovenox for DVT ppx for 30 days post op Daily and PRN dry sterile dressing changes. If increased drainage, any purulence , redness, pain, induration, fluctuance, fever or other concerns please contact orthopedics right away. [phone] keflex 500 mg QID x 5 days at md Follow up with Dr Pacheco approx 14 days post op, sooner with concerns Vital Signs Temp 97.7 F 10/26/18 11:15 Pulse 98 10/26/18 11:15 Resp 16 10/26/18 12:07 BP 100/56 10/26/18 11:15 Pulse Ox 98 10/26/18 11:15 Intake & Output 10/25/18 10/26/18 10/26/18 18:59 06:59 18:59 Intake Total 315 830 Output Total 0 550 Balance 315 280 Intake: IV Fluids 20 NS 20 IVPB 55 110 ABX - CEFAZOLIN 55 110 Oral 240 720 Output: Urine 0 550 Other: Estimated Void Medium Date of Last Bowel 10/25/18 Movement # Bowel Movements 1 1 Estimated Stool Amount Small # Voids 1 Laboratory Last Values WBC 7.6 10^3/ul (3.5-10.8) 10/24/18 05:32 RBC 2.75 10^6/ul (4.00-5.40) L 10/24/18 05:32 Hgb 8.5 g/dl (12.0-16.0) L 10/24/18 05:32 Hct 25 % (35-47) L 10/24/18 05:32 MCV 89 fL (80-97) 10/24/18 05:32 MCH 31 pg (27-31) 10/24/18 05:32 MCHC 35 g/dl (31-36) 10/24/18 05:32 RDW 13 % (10.5-15) 10/24/18 05:32 Plt Count 162 10^3/ul (150-450) 10/24/18 05:32 MPV 7.6 fL (7.4-10.4) 10/24/18 05:32 Neut % (Auto) 66.6 % 10/24/18 05:32 Lymph % (Auto) 16.8 % 10/24/18 05:32 [place] % (Auto) 10.1 % 10/24/18 05:32 Eos % (Auto) 6.0 % 10/24/18 05:32 Baso % (Auto) 0.5 % 10/24/18 05:32 Absolute Neuts (auto) 5.1 10^3/ul (1.5-7.7) 10/24/18 05:32 Absolute Lymphs (auto) 1.3 10^3/ul (1.0-4.8) 10/24/18 05:32 Absolute Monos (auto) 0.8 10^3/ul (0-0.8) 10/24/18 05:32 Absolute Eos (auto) 0.5 10^3/ul (0-0.6) 10/24/18 05:32 Absolute Basos (auto) 0 10^3/ul (0-0.2) 10/24/18 05:32 Absolute Nucleated RBC 0 10^3/ul 10/24/18 05:32 Nucleated RBC % 0 10/24/18 05:32 INR (Anticoag Therapy) 1.08 (0.77-1.02) H 10/21/18 14:43 APTT 29.5 seconds (26.0-36.3) 10/21/18 14:43 Sodium 139 mmol/L (135-145) 10/25/18 05:09 Potassium 3.8 mmol/L (3.5-5.0) 10/25/18 05:09 Chloride 108 mmol/L (101-111) 10/25/18 05:09 Carbon Dioxide 28 mmol/L (22-32) 10/25/18 05:09 Anion Gap 3 mmol/L (2-11) 10/25/18 05:09 BUN 11 mg/dL (6-24) 10/25/18 05:09 Creatinine 0.52 mg/dL (0.51-0.95) 10/25/18 05:09 Est GFR ( Amer) 137.6 (>60) 10/25/18 05:09 Est GFR (Non-Af Amer) 113.8 (>60) 10/25/18 05:09 BUN/Creatinine Ratio 21.2 (8-20) H 10/25/18 05:09 Glucose 102 mg/dL (70-100) H 10/25/18 05:09 Lactic Acid 1.5 mmol/L (0.5-2.0) 10/20/18 17:02 Calcium 8.4 mg/dL (8.6-10.3) L 10/25/18 05:09 Total Bilirubin 0.70 mg/dL (0.2-1.0) 10/20/18 17:02 AST 25 U/L (13-39) 10/20/18 17:02 ALT 20 U/L (7-52) 10/20/18 17:02 Alkaline Phosphatase 79 U/L (34-104) 10/20/18 17:02 Troponin I 0.00 ng/mL (<0.04) 10/20/18 17:02 Total Protein 6.4 g/dL (6.4-8.9) 10/20/18 17:02 Albumin 3.8 g/dL (3.2-5.2) 10/20/18 17:02 Globulin 2.6 g/dL (2-4) 10/20/18 17:02 Albumin/Globulin Ratio 1.5 (1-3) 10/20/18 17:02 Urine Color Yellow 10/20/18 18:19 Urine Appearance Cloudy 10/20/18 18:19 Urine pH 9.0 (5-9) 10/20/18 18:19 Ur Specific [place] 1.011 (1.010-1.030) 10/20/18 18:19 Urine Protein Negative (Negative) 10/20/18 18:19 Urine Ketones Trace (Negative) A 10/20/18 18:19 Urine Blood Negative (Negative) 10/20/18 18:19 Urine Nitrate Positive (Negative) A 10/20/18 18:19 Urine Bilirubin Negative (Negative) 10/20/18 18:19 Urine Urobilinogen Negative (Negative) 10/20/18 18:19 Ur Leukocyte Esterase Negative (Negative) 10/20/18 18:19 Urine WBC (Auto) Trace(0-5/hpf) (Absent) 10/20/18 18:19 Urine RBC (Auto) Trace(0-2/hpf) (Absent) 10/20/18 18:19 Urine Bacteria 1+ (Absent) A 10/20/18 18:19 Hyaline Casts Present (Absent) A 10/20/18 18:19 Urine Glucose Negative (Negative) 10/20/18 18:19 Urine Ascorbic Acid * (Negative) A 10/20/18 18:19 Blood Type O Positive 10/20/18 17:04 Antibody Screen Negative 10/20/18 17:04 <Araceli Dove - Last Filed: 10/26/18 13:01> - Progress Note SOAP: Subjective: Agree with note above. Patient describes decreased pain, improved mobility. Objective: RLE: dressing in place Assessment: POD 5 R ORIF c IMN hip IT fx Plan: - As above <Javier Pacheco - Last Filed: 10/26/18 22:12>
[2018-10-26 11:16] VITALS: BP 100/56
--- NOTE | 2018-10-26 14:15 | DS ---
CC: Dr. Crispin Olivares; Dr. Javier Pacheco.* DISCHARGE SUMMARY: DATE OF ADMISSION: 10/20/18. DATE OF DISCHARGE: 10/26/18. PRIMARY CARE PROVIDER: Dr. Crispin Olivares. ORTHOPEDIST: Dr. Javier Pacheco. ATTENDING PHYSICIAN: Dr. Antonietta Guillory* (dictated by Juanis Haines NP). PRIMARY DIAGNOSES: 1. Right hip fracture, status post ORIF. 2. Urinary tract infection, Escherichia coli. 3. Acute blood loss anemia. SECONDARY DIAGNOSES: 1. Hypertension. 2. History of cerebrovascular accident. STUDIES WHILE IN THE HOSPITAL: 1. Chest x-ray on 10/20/18 reads as no evidence for acute intrathoracic disease. 2. EKG on 10/20/18 shows normal sinus rhythm with a rate of 52, QTc 437. 3. Right hip pelvis x-ray on 10/20/18 reads as intertrochanteric fracture of the right hip with medial angulation. 4. Brain CT on 10/20/[address] evidence for traumatic brain injury or acute intracranial process. Right temporal scalp laceration and hematoma. Negative for calvarial or skull base fracture. Involutional change and stigmata of chronic small vessel ischemic disease. Old infarct at the inferior right cerebellar hemisphere. 5. Cervical spine CT on 10/20/18 reads as no fracture of the cervical spine is noted. Degenerative disk disease at C5 through C6 and C6 through C7 with dorsal and ventral osteophyte formation is noted. 6. Pelvis x-ray on 10/20/18 reads as mildly angulated and comminuted right intertrochanteric femoral fracture. Subcutaneous contusion of the right lateral upper thigh. Other chronic findings noted in the body of the report. 7. Hip x-ray on 10/21/18 reads as anatomical alignment of intramedullary prosthesis. HISTORY OF PRESENT ILLNESS AND HOSPITAL COURSE: Ms. Terry is a 78-year-old female with past medical history of CVA and hypertension, who presented to the emergency room on 10/20/18 after a mechanical fall. Please see the history and physical by Dr. Luong for a complete summary of the events leading up to this hospitalization. In short, the patient reports a mechanical fall and hitting the right side of her head. She did not lose consciousness. She was taken to the emergency room by EMS. In the emergency room, she was found to have a right hip fracture and Orthopedics was consulted. The patient was admitted by the hospitalist service. The patient underwent a right hip ORIF on 10/21/18. The surgery was uneventful and the patient recovered well. She was noted to have a urinary tract infection. Her urine culture grew E. Coli with greater than 100,000 colonies. She does not have any urinary symptoms. She was started on ciprofloxacin on 07/02. The patient continued to recover well. She has been working with physical therapy and doing well getting up to the chair. She does complain of right hip pain which is well managed by Percocet. Blood pressure has been normotensive while in the hospital. The patient was noted to be anemic after surgery. H and H on 10/24/18 was 8.5 and 25. This is secondary to acute blood loss and should resolve on its own. Initially, the patient had planned to go to subacute rehab, though her insurance did not approve acute rehab here in the hospital and as of yesterday the patient had planned to return home. Today, the patient has agreed to go to rehab and has received a bed offer at [facility], which she has accepted. Ms. Terry is stable for discharge today. Vital signs are as follows: Temp 97.7 heart rate 98, respiratory rate 16, oxygen saturation 98% on room air, blood pressure 100/56. DISCHARGE MEDICATIONS: New medications: 1. Acetaminophen 650 mg p.o. q.4 hours p.r.n. pain. 2. Maalox 30 mL p.o. q.6 hours p.r.n. indigestion. 3. Cephalexin 500 mg p.o. 4 times a day x5 days. 4. Docusate 100 mg p.o. b.i.d. 5. Enoxaparin 40 mg subcu daily x25 days. 6. Milk of magnesia 30 mL p.o. q.4 hours p.r.n. constipation. 7. Oxycodone/acetaminophen 5/325 mg 1 to 2 tablets p.o. q.4 hours p.r.n. pain. Continued Medications: 1. Magnesium oxide 750 mg p.o. daily. 2. Ascorbic acid 500 mg p.o. b.i.d. 3. Aspirin 81 mg p.o. daily. 4. Vitamin D 2000 units p.o. b.i.d. 5. Enalapril 5 mg p.o. at bedtime. 6. Vitamin B complex 1 capsule p.o. at bedtime. Discontinued medication: 1. Various supplements. DISCHARGE PLAN: Ms. Terry will be discharged to rehab at [facility]. Activity per Orthopedics recommendations will be weightbearing as tolerated on the right lower extremity. She should have dry sterile dressing changes daily to the right hip. She may shower, but should not submerge the surgical site. Medications are noted above. Per orthopedic recommendations, the patient should take Lovenox 40 mg daily for 30 days postoperatively (surgery was on 06/01). The patient has been prescribed a 5-day course of Keflex for some concern for drainage at the surgical site. I will note that she does require 3 more days of treatment for her urinary tract infection, though the Keflex will cover this as well, so she has not been prescribed any additional Cipro. She can use Percocet for pain and has been prescribed a bowel regimen. She will follow up for care at [facility] and should follow up with her primary care provider thereafter. The patient should return to the emergency room or nearest hospital for any worsening of symptoms, shortness of breath, lightheadedness, dizziness, chest discomfort, high fevers, chills, night sweats , loss of consciousness, or any other worrisome signs or symptoms. This is a summarized report of a complex medical history and hospital stay. For further details, please see the entire medical record. Please note that this discharge summary will also be used as the admitting history and physical for [facility]. TIME SPENT: Approximately 45 minutes were spent on this discharge, greater than half of that time spent [id number] with the patient discussing discharge plans and instructions. JUANIS HAINES NP [id number]/SATISH #: [id number] RAULITO
== END 2018-10-26 14:50 | DRG 481 ==
LOC: ED 15:48 → SSU 17:54
PROVIDERS: ADMIT Internal Medicine; ATTEND Internal Medicine
PROC: 0HQ0XZZ Repair Scalp Skin, External Approach (ICD-10-PCS; 2018-10-20)
PROC: 0QS636Z Reposition Right Upper Femur with Intramedullary Internal Fixation Device, Percutaneous Approach (ICD-10-PCS; principal; 2018-10-21 13:00)
DX: S72.141A Displaced intertrochanteric fracture of right femur, initial encounter for closed fracture (principal); D62 Acute posthemorrhagic anemia; N39.0 Urinary tract infection, site not specified; W10.8XXA Fall (on) (from) other stairs and steps, initial encounter; B96.20 Unspecified Escherichia coli [E. coli] as the cause of diseases classified elsewhere; S01.01XA Laceration without foreign body of scalp, initial encounter; I10 Essential (primary) hypertension; I69.393 Ataxia following cerebral infarction; M19.90 Unspecified osteoarthritis, unspecified site; Z96.651 Presence of right artificial knee joint; M50.323 Other cervical disc degeneration at C6-C7 level; M25.78 Osteophyte, vertebrae; Z86.711 Personal history of pulmonary embolism; Z79.82 Long term (current) use of aspirin; Z79.899 Other long term (current) drug therapy; Y92.018 Other place in single-family (private) house as the place of occurrence of the external cause
CPT/HCPCS: 36415; 70450; 71045; 72125; 72192; 76000; 80048; 80053; 81003; 81015; 83605; 84484; 85025; 85610; 85730; 86850; 86900; 86901; 87077; 87086; 87186; 93005; 99283; A9270-GY; G8978-GP-CM; G8979-GP-CI; G8987-GO-CL; G8988-GO-CI; J0690; J0780; J1644; J1650; J2250; J2270; J2704; J3010

== ENCOUNTER 2020-01-22 13:20 | Emergency (ER) | payer MEDICARE ==
--- NOTE | 2020-01-22 13:28 | ED ---
Throat Pain/Nasal Congestion - HPI Summary HPI Summary: 80 year old F presenting to [facility] via EMS with a chief complaint of epistaxis since earlier today which lasted approximately 10 minutes. The patient rates the pain 0/10 in severity. Symptoms aggravated by nothing. Symptoms alleviated by nothing. Patient reports taking 81 mg of aspirin per day. She denies being on any other blood thinners. Medication list reviewed. Allergy list reviewed. Home Medications Medication Instructions Recorded Confirmed Type Ascorbic Acid TAB* [Vitamin C 500 mg PO BID 10/20/18 10/20/18 History TAB*] Aspirin EC TAB* [Ecotrin EC Low 81 mg PO DAILY 10/20/18 10/20/18 History Dose 81 MG*] Cholecalciferol TAB* [Vitamin D 2,000 units PO BID 10/20/18 10/20/18 History TAB*] Enalapril TAB* [Vasotec TAB*] 5 mg PO BEDTIME 10/20/18 10/20/18 History Magnesium Oxide [Magnesium] 750 mg PO DAILY 10/20/18 10/20/18 History Vitamin B Complex CAP* [B Complex 1 cap PO BEDTIME 10/20/18 10/20/18 History CAP*] Acetaminophen TAB* [Tylenol TAB*] 650 mg PO Q4H PRN tab 10/26/18 Rx Al Hydrox/Mg Hydrox/Simet LIQ* 30 ml PO Q6H PRN udc 10/26/18 Rx [Maalox Plus*] Cephalexin CAP* [Keflex CAP*] 500 mg PO QID 5 Days #20 cap 10/26/18 Rx Docusate CAP* [Colace Cap*] 100 mg PO BID cap 10/26/18 Rx Enoxaparin(*) [Lovenox(*)] 40 mg SUBCUT Q24H syringe 10/26/18 Rx Magnesium Hydroxide LIQ* [Milk of 30 ml PO Q4H PRN udc 10/26/18 Rx Magnesia LIQ*] oxyCODONE/Acetamin 5/325 MG* 1 tab PO Q4H PRN tab 10/26/18 Rx [Percocet 5/325 TAB*] oxyCODONE/Acetamin 5/325 MG* 2 tab PO Q4H PRN tab 10/26/18 Rx [Percocet 5/325 TAB*] - History of Current Complaint Hx Obtained From: Patient, EMS Onset/Duration: Sudden Onset Associated Signs And Symptoms: Positive: Negative - Allergies/Home Medications Allergies/Adverse Reactions: Allergies Allergy/AdvReac Type Severity Reaction Status Date / Time adhesive tape Allergy Severe Rash And Verified 10/20/18 15:57 Itching latex Allergy Severe Rash And Verified 10/20/18 15:57 Itching shellfish derived Allergy Intermediate GI Upset, Verified 10/20/18 15:57 VOMITING Home Medications: Home Medications Ascorbic Acid TAB* [Vitamin C TAB*] 500 mg PO BID 10/20/18 [History Confirmed 01/22/20] Aspirin EC TAB* [Ecotrin EC Low Dose 81 MG*] 81 mg PO DAILY 10/20/18 [History Confirmed 01/22/20] Cholecalciferol TAB* [Vitamin D TAB*] 2,000 units PO BID 10/20/18 [History Confirmed 01/22/20] Enalapril TAB* [Vasotec TAB*] 5 mg PO BID 10/20/18 [History Confirmed 01/22/20] Magnesium Oxide [Magnesium] 500 mg PO QAM 10/20/18 [History Confirmed 01/22/20] Hydraflexin 1 cap PO DAILY 01/22/20 [History Confirmed 01/22/20] Magnesium Oxide [Essential Magnesium] 1,000 mg PO QPM 01/22/20 [History Confirmed 01/22/20] Nystatin CREAM* [Nystatin Cream*] 1 applic TOPICAL TID 01/22/20 [History Confirmed 01/22/20] Selenium (NF) 200 mcg PO DAILY 01/22/20 [History Confirmed 01/22/20] Turmeric 400 mg PO DAILY 01/22/20 [History Confirmed 01/22/20] Ubidecarenone [Coq-10] 30 mg PO DAILY 01/22/20 [History Confirmed 01/22/20] PMH/Surg Hx/FS Hx/Imm Hx Endocrine/Hematology History: Reports: Hx Anticoagulant Therapy - Aspirin Denies: Hx Diabetes, Hx Thyroid Disease Cardiovascular History: Reports: Hx Angina - IN THE PAST, Hx Hypertension, Other Cardiovascular Problems/Disorders - hx afib in , ok now, hx stroke in 2009 Denies: Hx Pacemaker/ICD Respiratory History: Reports: 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 Denies: Hx Asthma, Hx Chronic Obstructive Pulmonary Disease (COPD), Other Respiratory Problems/Disorders GI History: Reports: Hx Gastroesophageal Reflux Disease, Hx Irritable Bowel Denies: Other GI Disorders History: Reports: Other Problems/Disorders - stress incontinence Denies: Hx Renal Disease Musculoskeletal History: Reports: Hx Arthritis - KNEES, SHOULDERS, BACK, Hx Bursitis - elbow many years ago, Hx Orthopedic Injury - bad right shoulder- dislocated several times, Other Musculoskeletal History - bilat carpal tunnel Denies: Hx Tendonitis Sensory History: Reports: Hx Cataracts - BILAT, cataract surgery, Hx Contacts or Glasses - glasses for driving, Hx Hearing Problem - hearing loss Denies: Hx Hearing Aid Opthamlomology History: Reports: Hx Cataracts - BILAT, cataract surgery, Hx Contacts or Glasses - glasses for driving Neurological History: Reports: Hx CVA - "Small Strokes.", Hx Headaches - "once in a while", Other Neuro Impairments/Disorders - TINNITIS Denies: Hx Migraine Psychiatric History: Denies: Hx Panic Disorder - Cancer History Hx Chemotherapy: No Hx Radiation Therapy: No - Surgical History Surgery Procedure, Year, and Place: C-sections X2. Appendectomy. Hysterectomy. L TKR. rt wrist surgeries X2. rt fibula surgery with plate. breast biopsy 1971. LEFT ACHILLES TENDON REPAIR. L [facility] 03/29 [facility] Hx Anesthesia Reactions: Yes - issues with ether, - Immunization History Date of Tetanus Vaccine: 2009 - Family History Known Family History: Positive: Other - Maternal - stroke - Social History Alcohol Use: Rare Alcohol Amount: "I used to but not in a long time" last time was "probably last juan" Substance Use Type: Reports: Marijuana Substance Use Comment - Amount & Last Used: "Hemp of late, it helps the joints and sleeping" "CBD from [employer]" Smoking Status (MU): Former Smoker Have You Smoked in the Last Year: No Review of Systems Positive: Epistaxis All Other Systems Reviewed And Are Negative: Yes Physical Exam - Summary Physical Exam Summary: VITAL SIGNS: Reviewed. GENERAL: Patient is a well-developed and nourished female who is lying comfortable in the stretcher. Patient is not in any acute respiratory distress. HEAD AND FACE: No signs of trauma. No ecchymosis, hematomas or skull depressions. No sinus tenderness. Bleeding controlled right nostril; no active bleeding. EYES: PERRLA, EOMI x 2, No injected conjunctiva, no nystagmus. EARS: Hearing grossly intact. Ear canals and tympanic membranes are within normal limits. MOUTH: Oropharynx within normal limits. NECK: Supple, trachea is midline, no adenopathy, no JVD, no carotid bruit, no c- spine tenderness, neck with full ROM. CHEST: Symmetric, no tenderness at palpation. LUNGS: Clear to auscultation bilaterally. No wheezing or crackles. CVS: Regular rate and rhythm, S1 and S2 present, no murmurs or gallops appreciated. ABDOMEN: Soft, non-tender. No signs of distention. No rebound, no guarding, and no masses palpated. Bowel sounds are normal. EXTREMITIES: FROM in all major joints, no edema, no cyanosis or clubbing. NEURO: Alert and oriented x 3. No acute neurological deficits. Speech is normal and follows commands. SKIN: Dry and warm. Triage Information Reviewed: Yes Vital Signs Reviewed: Yes Procedures - Sedation Patient Received Moderate/Deep Sedation with Procedure: No Diagnostics - Laboratory Result Diagrams: 01/22/20 14:05 Lab Statement: Any lab studies that have been ordered have been reviewed, and results considered in the medical decision making process. EENT Course/Dx - Course Assessment/Plan: 80 year old F presenting to [facility] via EMS with a chief complaint of epistaxis since earlier today which lasted approximately 10 minutes. The patient rates the pain 0/10 in severity. Symptoms aggravated by nothing. Symptoms alleviated by nothing. Patient report taking 81 mg of aspirin per day. She denies being on any other blood thinners. Medication list reviewed. Allergy list reviewed. Patient is not actively bleeding. Is resolved. She declined blood work. In the ED course the patient was observed for approximately 2 hours and is not actively bleeding. The patient requested discharge. I discussed all the findings and test results with the patient. Patient was instructed to return to the emergency room immediately if any of the symptoms return or worsen. Plan of care was discussed with the patient and she understands and agrees. All questions were answered at patient satisfaction. There were no further complaints or concerns. Lung exam before discharge: CTA B/L. Good air exchange. No wheezing or crackles heard. CVS: S1 and S2 present. No murmurs appreciated. Patient is alert and oriented x 3. Patient is hemodynamically stable. Patient will be discharged home with follow up PCP in the next 2-3 days. - Diagnoses Provider Diagnoses: Epistaxis Discharge ED - Sign-Out/Discharge Documenting (check all that apply): Patient Departure - Discharge Plan Condition: Stable Disposition: HOME Patient Education Materials: Nosebleed (ED) Referrals: Crispin Olivares MD [Primary Care Provider] - 3 Days Additional Instructions: Follow up with your primary care provider within 3 days for epistaxis noted today. Return to the emergency department for any worsening or new symptoms. - Billing Disposition and Condition Condition: STABLE Disposition: Home - Attestation Statements Document Initiated by Scribe: Yes Documenting Scribe: Re Umanzor Provider For Whom Heideibe is Documenting (Include Credential): Anuel Warren MD Scribe Attestation: Re Malik scribed for Anuel Warren MD on 01/23/20 at 1138. Scribe Documentation Reviewed: Yes Provider Attestation: The documentation as recorded by the Re michel accurately reflects the service I personally performed and the decisions made by , Anuel Warren MD Status of Scribe Document: Viewed
[2020-01-22 15:12] VITALS: BP 148/80
== END 2020-01-22 15:11 | disposition home or self-care (01) ==
LOC: ED 13:20
DX: R04.0 Epistaxis (principal); I10 Essential (primary) hypertension; Z79.82 Long term (current) use of aspirin; Z79.899 Other long term (current) drug therapy; Z91.040 Latex allergy status; Z91.013 Allergy to seafood; Z91.048 Other nonmedicinal substance allergy status; Z87.891 Personal history of nicotine dependence
CPT/HCPCS: 36415; 99281

== ENCOUNTER 2024-06-28 12:31 | Observation (INO) ==
[2024-06-28 13:06] LABS: ABS Basophils 0.1 10^3/uL (0.0-0.1); ABS Eosinophils 0.2 10^3/uL (0.0-0.5); ABS Lymphocytes 1.8 10^3/uL (1.0-4.8); ABS Monocytes 0.7 10^3/uL (0.0-0.9); Eosinophil % 1.6 %; Hematocrit 38.3 % (35-45); Hemoglobin 13.2 g/dL (11.5-14.3); Lymphocyte % 16.9 %; Mean Corpuscular Hemoglobin 30.9 pg (27-33); Mean Corpuscular Hgb Conc 34.4 g/dL (31-36); Mean Corpuscular Volume 89.7 fL (80-97); Mean Platelet Volume 7.6 fL (7.5-11.2); Platelet Count 276 10^3/uL (150-450); Red Blood Count 4.27 10^6/uL (3.63-4.92); Red Cell Distribution Width 13.9 % (12-17); White Blood Count 10.8 10^3/uL (3.8-11.8)
[2024-06-28 13:16] LABS: INR 1.13 (0.83-1.13)
[2024-06-28] MEDS: NS 0.9% 1000 ml BAG 1,000 ML IV ONE (13:36)
[2024-06-28 13:46] LABS: Albumin 3.9 g/dL (3.2-5.2); Albumin/Globulin Ratio 1.4 (1-3); Calcium 9.6 mg/dL (8.6-10.3); Creatinine, Serum 0.79 mg/dL (0.51-0.95); Globulin 2.7 g/dL (2-4); Magnesium 1.9 mg/dL (1.9-2.7); Potassium 3.5 mmol/L (3.5-5.0); Total Bilirubin 0.5 mg/dL (0.2-1.0); Total Protein 6.6 g/dL (6.4-8.9); eGFR CKD-EPI 73.3 (>60)
[2024-06-28 14:47] LABS: High Sensitivity Troponin 1 Hr 57 pg/mL (<15)
[2024-06-28] MEDS: Potassium Chlor 20 meq TAB.ER PO ONE (15:14)
[2024-06-28] MEDS: KCL 20 MEQ/100 ML IVPREMIX 20 MEQ/100 ML BAG IV ONE (15:29)
[2024-06-28 16:45] LABS: High Sensitivity Troponin 1 Hr 168 pg/mL (<15)
[2024-06-28] MEDS: Ketorolac 10 mg TAB (NF) PO PRN (18:36)
[2024-06-28] MEDS: Lactated Ringers 1000 ml BAG 1,000 ML IV SCH (19:23)
[2024-06-29 05:35] LABS: Corrected Retic Count 0.8 % (0.5-1.5); Hematocrit 32.4 % (35-45); Hematocrit for Retic CNT 32.4 % (35-45); Hemoglobin 10.8 g/dL (11.5-14.3); Immature Retic Fraction 0.15; Mean Corpuscular Hemoglobin 29.8 pg (27-33); Mean Corpuscular Hgb Conc 33.4 g/dL (31-36); Mean Corpuscular Volume 89.2 fL (80-97); Mean Platelet Volume 7.6 fL (7.5-11.2); Platelet Count 244 10^3/uL (150-450); RBC Retic Count 3.64 10^6/ul (3.63-4.92); Red Blood Count 3.64 10^6/uL (3.63-4.92); Red Cell Distribution Width 13.7 % (12-17); White Blood Count 8.2 10^3/uL (3.8-11.8)
[2024-06-29 07:09] LABS: Calcium 8.5 mg/dL (8.6-10.3); Creatinine, Serum 0.75 mg/dL (0.51-0.95); Phosphorus 2.8 mg/dL (2.5-5.0)
[2024-06-29 07:52] LABS: Magnesium 1.8 mg/dL (1.9-2.7)
[2024-06-29] MEDS ORDERED: Sulfur Hexaflouride MICROSPHR 25 MG VIAL IV ONE (10:45)
[2024-06-29] MEDS: Lactated Ringers 1000 ml BAG 1,000 ML IV ONE (12:22)
[2024-06-29 12:49] LABS: ABS Eosinophils 0.1 10^3/uL (0.0-0.5); ABS Lymphocytes 1.7 10^3/uL (1.0-4.8); ABS Monocytes 0.6 10^3/uL (0.0-0.9); ABS Neutrophils 4.6 10^3/uL (1.5-7.6); ABS Nucleated RBC 0.01 10^3/ul; Eosinophil % 1.8 %; Hemoglobin 11.6 g/dL (11.5-14.3); Lymphocyte % 23.8 %; Mean Corpuscular Hemoglobin 29.9 pg (27-33); Mean Corpuscular Hgb Conc 32.1 g/dL (31-36); Mean Corpuscular Volume 93.2 fL (80-97); Mean Platelet Volume 7.4 fL (7.5-11.2); Nucleated Red Blood Cells % 0.1 %/100WBC (0.0-0.8); Platelet Count 236 10^3/uL (150-450); Red Blood Count 3.87 10^6/uL (3.63-4.92)
[2024-06-29 13:18] LABS: High Sensitivity Troponin 1 Hr 144 pg/mL (<15)
[2024-06-29 14:39] LABS: Urine Appearance Turbid; Urine Bilirubin Negative (Negative); Urine Blood 2+ (Negative); Urine Color Light-Yellow; Urine Glucose Negative (Negative); Urine Ketones Negative (Negative); Urine Nitrite 2+ (Negative); Urine Protein Trace (Negative); Urine Specific Gravity 1.013 (1.002-1.030); Urine Urobilinogen Negative (Negative); Urine pH 7.5 (5.0-8.0)
[2024-06-29 14:42] LABS: Urine Bacteria 3+ /HPF (Absent); Urine Red Blood Cell 3+(>10/hpf) /HPF (0-Trace); Urine White Blood Cell 3+(>20/hpf) /HPF (0-Trace)
[2024-06-30 07:20] LABS: ABS Eosinophils 0.2 10^3/uL (0.0-0.5); ABS Lymphocytes 1.7 10^3/uL (1.0-4.8); ABS Monocytes 0.8 10^3/uL (0.0-0.9); ABS Neutrophils 6.7 10^3/uL (1.5-7.6); Eosinophil % 2.4 %; Hematocrit 35.1 % (35-45); Hemoglobin 11.9 g/dL (11.5-14.3); Mean Corpuscular Hemoglobin 30.4 pg (27-33); Mean Corpuscular Volume 89.3 fL (80-97); Mean Platelet Volume 7.5 fL (7.5-11.2); Platelet Count 247 10^3/uL (150-450); Red Blood Count 3.92 10^6/uL (3.63-4.92); Red Cell Distribution Width 13.2 % (12-17); White Blood Count 9.5 10^3/uL (3.8-11.8)
[2024-06-30 07:40] LABS: Albumin 3.4 g/dL (3.2-5.2); Albumin/Globulin Ratio 1.4 (1-3); Calcium 8.4 mg/dL (8.6-10.3); Creatinine, Serum 0.6 mg/dL (0.51-0.95); Globulin 2.4 g/dL (2-4); Magnesium 1.5 mg/dL (1.9-2.7); Phosphorus 2.8 mg/dL (2.5-5.0); Potassium 3.5 mmol/L (3.5-5.0); Total Bilirubin 0.5 mg/dL (0.2-1.0); Total Protein 5.8 g/dL (6.4-8.9); eGFR CKD-EPI 87.9 (>60)
[2024-06-30] MEDS: Nystatin TOP POWDER 15 GM BTL TOPICAL SCH (08:05)
[2024-06-30] MEDS: Magnesium Sulf 4 GM/100 ML IV 4,000 MG/100 ML BAG IVPB ONE (09:37)
[2024-06-30] MEDS: Potassium Chlor 20 meq TAB.ER PO ONE (09:37)
[2024-06-30] MEDS: KCL 20 MEQ/100 ML IVPREMIX 20 MEQ/100 ML BAG IV SCH (10:20)
[2024-06-30 14:24] VITALS: BP 146/83
== END 2024-06-30 16:19 | disposition home or self-care (01) ==
LOC: ED 12:31 → EDHOLD 12:31 → SUATTDRO 15:36 → MEDTELE 06-29 07:44
PROVIDERS: ADMIT Internal Medicine; ATTEND Internal Medicine